=== PATIENT | male | born 1950 | race Two or more races ===

== ENCOUNTER 2020-04-11 12:39 | Outpatient (REF) | payer MEDICARE, MEDICAID, SELFPAY ==
--- NOTE | 2020-04-11 | US_ITS ---
EXAMINATION: US ABDOMINAL AORTIC CLINICAL INFORMATION: Screening study. History of smoking. COMPARISON: None TECHNIQUE: Real-time ultrasound and Doppler techniques (integrating B-mode 2-D vascular images, Doppler spectral analysis and color flow Doppler imaging) were utilized to interrogate the abdominal aorta. FINDINGS: Proximal aorta: 2.7 cm AP; 3.2 cm transverse, however the transverse dimension may be inaccurate due to overlying bowel gas.. Middle aorta: 1.8 cm AP; 2.1 cm transverse. Distal aorta: 1.6 cm AP; 1.6 cm transverse. Right common iliac artery: 1.2 x 1.1 cm Left common iliac artery: 1.1 x 1.0 cm ADDITIONAL FINDINGS: None. US/US abdominal aortic aneurysm IMPRESSION: The proximal aorta measures slightly greater than normal at 3.2 cm in the transverse dimension, suggesting aneurysm. However, this area of the aorta was obscured by bowel gas and the measurement may not be accurate. Repeat ultrasound can be performed versus CT for definitive answer.
== END 2020-04-11 12:40 | disposition home or self-care (01) ==
LOC: HO.US 12:39
PROVIDERS: Visit Provider Internal Medicine
DX: Z87.891 Personal history of nicotine dependence (principal)
CPT/HCPCS: 76706

== ENCOUNTER 2023-02-05 12:37 | Outpatient (REF) | payer MEDICARE, MEDICAID, SELFPAY | END 2023-02-05 12:38 | disposition home or self-care (01) | LOC: HO.CHCLDS 12:37 | PROVIDERS: Visit Provider Internal Medicine | DX: Z12.5 Encounter for screening for malignant neoplasm of prostate (principal); R35.1 Nocturia; E11.22 Type 2 diabetes mellitus with diabetic chronic kidney disease; N18.31 Chronic kidney disease, stage 3a | CPT/HCPCS: 36415; 80053; 80061; 84153; 84439; 84443; 86803 ==

== ENCOUNTER 2024-01-27 16:09 | Outpatient (REF) | payer MEDICARE, MEDICAID, SELFPAY ==
[2024-01-27 17:53] LABS: Uric Acid 7.8 mg/dL (3.4-7.0)
[2024-01-27 18:02] LABS: Alanine Aminotransferase 14 U/L (0-40); Albumin Level 4.8 g/dL (3.5-5.0); Alkaline Phosphatase 103 U/L (39-117); Anion Gap 15 (12-20); Aspartate Amino Transferase 20 U/L (5-37); Bilirubin Total 0.4 mg/dL (0.0-1.0); Blood Urea Nitrogen 14 mg/dL (9-16); Calcium 10.3 mg/dL (8.4-10.2); Carbon Dioxide 27 mmol/L (22-29); Chloride 103 mmol/L (96-108); Cholesterol 200 mg/dL (<200); Estimated Glomerular Filt Rate 37; Glucose Random 95 mg/dL (60-115); HDL Cholesterol 38 mg/dL (>40); LDL Cholesterol Calculated 100 mg/dL (<100); Sodium 141 mmol/L (135-145); Total Protein 9.1 g/dL (6.5-8.0); Triglycerides 313 mg/dL (<150)
[2024-01-27 18:17] LABS: TSH reflex Free T4 2.14 uIU/mL (0.32-4.0)
== END 2024-01-27 16:10 | disposition home or self-care (01) ==
LOC: HO.HHCL 16:09
PROVIDERS: Student in an Organized Health Care Education/Training Program; Visit Provider Internal Medicine
DX: E11.22 Type 2 diabetes mellitus with diabetic chronic kidney disease (principal); N18.31 Chronic kidney disease, stage 3a; M10.9 Gout, unspecified; E03.9 Hypothyroidism, unspecified
CPT/HCPCS: 36415; 80053; 80061; 84443; 84550

== ENCOUNTER 2024-04-08 11:08 | Outpatient (AMB) | payer MEDICARE, MEDICAID, SELFPAY ==
--- NOTE | 2024-04-08 11:21 | HO.NEPHOV ---
Vital Signs 04/08/24 11:23 Height 5 ft 4 in Weight 180 lb 6 oz BMI 31.0 BP 126/70 Blood Pressure Location Lt brachial Position Sitting Pulse 81 Pulse Source Pulse Oximeter Pulse Oximetry (%) 96 Oxygen Delivery Method Room Air Intake Visit Reasons: ENP:CKD STG3B/ LVM Allergies No Known Allergies Allergy (Verified 04/02/24 14:32) HPI Comments Details: Thank you for referring this gentleman for evaluation of CKD. He is a 74 year old Divehi speaking gentleman accompanied by daughter and family during this encounter. He has CAD & is S/P cardiac surgery but denies carotid stenosis, CVA, CHF or PAD. He has dyslipidemia as well as hyperuricemia. His BP is well controlled on medications. He denies being a diabetic or having retinopathy or proteinuria. He denies new bone pain, back pain, H/O paraproteinemia or any malignancy. He has no sensori neural deafness, microscopic hematuria or renal calculi. He does not take excess NSAID's. He has no epistaxis, photosensitivity, skin rashes, sinusitis or edema. His recent serum creatinine is 1.79 PFSH Medical History (Updated 04/08/24 @ 11:48 by Bipin Lockwood MD) Screening for colon cancer Prostate cancer screening Chronic idiopathic constipation History of tremor Vitamin D deficiency Diabetes mellitus CISCO on CPAP Old myocardial infarction Hypothyroidism Hyperlipidemia with target LDL less than 70 Essential hypertension Depression CKD (chronic kidney disease) CAD (coronary artery disease) Renal cyst Surgical History (Updated 04/08/24 @ 11:23 by Bella Curry MA) H/O heart surgery Presence of stent in coronary artery Family History Mother Hypertension Diabetes Heart disease Social History (Updated 04/08/24 @ 11:22 by Bella Curry MA) Alcohol intake: never Patient Tobacco Use Status: Former Tobacco user Review of Systems Const All systems reviewed & are unremarkable except as noted in HPI and below Physical Exam Vital Signs: Last Vital Signs Pulse 81 04/08/24 11:23 BP 126/70 04/08/24 11:23 Pulse Ox 96 04/08/24 11:23 Oxygen Delivery Method Room Air 04/08/24 11:23 BMI result Body Mass Index 31.0 Const General: comfortable and no acute distress Orientation/consciousness: patient oriented x3 HEENT Head: Yes normocephalic Mouth: Normal oral and palatal mucosa present Eyes EOM: EOMs intact bilaterally Neck Neck: Yes supple Resp Auscultation: clear to auscultation bilaterally Cardio Jugular venous distension: no JVD Rate: regular rate GI Palpation (GI): Soft to palpation Auscultation: normal bowel sounds General: Yes no CVA tenderness Back/Spine/Pelvis Back: no CVA tenderness Skin General skin exam: no rashes or lesions noted Neuro General: patient oriented x3 and moves all extremities Extrem General: Yes no pedal edema Results Reviewed Nephrology Results: Sodium 141 mmol/L (135-145) 01/27/24 Potassium 4.0 mmol/L (3.3-5.1) 01/27/24 Chloride 103 mmol/L (96-108) 01/27/24 Carbon Dioxide 27 mmol/L (22-29) 01/27/24 BUN 14 mg/dL (9-16) 01/27/24 Creatinine 1.79 mg/dL (0.5-1.4) H 01/27/24 Calcium 10.3 mg/dL (8.4-10.2) H 01/27/24 Assessment & Plan Assessment & Plan (1) CKD stage 3a, GFR 45-59 ml/min: Code(s): N18.31 - Chronic kidney disease, stage 3a Category: Medical (2) Hypertension: Code(s): I10 - Essential (primary) hypertension Category: Medical Qualifiers: Hypertension type: primary hypertension Qualified Code(s): I10 - Essential (primary) hypertension Plan Tommy most likely has CKD due to vascular disease. He has CAD & has H/O CABG. His urine output is good. He does not take NSAID's. His blood pressure is at goal. He is not on ACEI/ARB. He is unsure about his last ECHO results. I have ordered work up including imaging studies. He may need a renal biopsy based on data. All these were discussed in detail. Answered all questions. Orders: Orders Creatinine 3 Weeks I10 - Essential (primary) hypertension, N18.31 - Chronic kidney disease, stage 3a Electrolytes 3 Weeks I10 - Essential (primary) hypertension, N18.31 - Chronic kidney disease, stage 3a Calcium 3 Weeks I10 - Essential (primary) hypertension, N18.31 - Chronic kidney disease, stage 3a Phosphorus 3 Weeks I10 - Essential (primary) hypertension, N18.31 - Chronic kidney disease, stage 3a Vitamin D 25-OH Total 3 Weeks I10 - Essential (primary) hypertension, N18.31 - Chronic kidney disease, stage 3a Anti DNA DS Antibody 3 Weeks I10 - Essential (primary) hypertension, N18.31 - Chronic kidney disease, stage 3a Anti Glomerular Basement Memb 3 Weeks I10 - Essential (primary) hypertension, N18.31 - Chronic kidney disease, stage 3a Immunofixation Pnl, Serum 3 Weeks I10 - Essential (primary) hypertension, N18.31 - Chronic kidney disease, stage 3a Phospholipase A2 Receptor Pnl 3 Weeks I10 - Essential (primary) hypertension, N18.31 - Chronic kidney disease, stage 3a Protein Creatinine Ratio, Ur 3 Weeks I10 - Essential (primary) hypertension, N18.31 - Chronic kidney disease, stage 3a Blood Urea Nitrogen 3 Weeks I10 - Essential (primary) hypertension, N18.31 - Chronic kidney disease, stage 3a Parathyroid Hormone Intact 3 Weeks I10 - Essential (primary) hypertension, N18.31 - Chronic kidney disease, stage 3a Complete Blood Count Auto Diff 3 Weeks I10 - Essential (primary) hypertension, N18.31 - Chronic kidney disease, stage 3a Myeloperoxidase Antibody 3 Weeks I10 - Essential (primary) hypertension, N18.31 - Chronic kidney disease, stage 3a Proteinase 3 PR3 Antibodies 3 Weeks I10 - Essential (primary) hypertension, N18.31 - Chronic kidney disease, stage 3a Complement C3 3 Weeks I10 - Essential (primary) hypertension, N18.31 - Chronic kidney disease, stage 3a Complement C4 3 Weeks I10 - Essential (primary) hypertension, N18.31 - Chronic kidney disease, stage 3a Hepatitis B Core Antibody 3 Weeks I10 - Essential (primary) hypertension, N18.31 - Chronic kidney disease, stage 3a Hepatitis B Surface Antigen 3 Weeks I10 - Essential (primary) hypertension, N18.31 - Chronic kidney disease, stage 3a US renal BI 3 Weeks I10 - Essential (primary) hypertension, N18.31 - Chronic kidney disease, stage 3a Coding Level of Care Code New Pt Level 4 (02226) Diagnoses CKD stage 3a, GFR 45-59 ml/min N18.31 Primary hypertension I10 Hypertension type: primary hypertension
[2024-04-08 11:23] VITALS: BP 126/70; PULSE 81; O2SAT 96; BMI 31.0
--- OUTSIDE RECORDS SUMMARY | 2024-04-09 01:31 | XMS_ITS | Clinical Summary ---
Author Organization Unknown Care Team Providers Care Quarter Doper Name Role Phone LEXII WILLSON, ALTON Unavailable Unavailaleshia MONTEZ ([facility]) [facility] - PT, ONEL Unavailable Unavailable NICHOLAS MONTIEL, CLINICAL COTTON CONVERTER, ALFRED Un available Unavailable MARY ([facility]) [facility] - BAND BUILDER, ANDRY Unavailable Un available RAFAEL MONTIEL, NICK Unavailable Unavailable Payers Payer Name Policy Type Policy Number Effective Date Expira tion Date MEDICARE - NGS [place] - PDGM [id number] [place] USED PAYER [id number] Problems Condition Name Condition Details Condition Category Status Onset Date Resolution Date Last Treatment Date Treating Clinician Comments ESSENTIAL (PRIMARY) HYPERTENSION Active 11-03 00:00: 00 PARKINSON'S DIS W/O DYSKINESIA, W/O MENTION OF FLUCTUATIONS Active 11-03 00:00: 00 ATHSCL HEART DISEASE OF [place] CORONARY ARTERY W/O ANG PCTRS Active 11-03 00:00: 00 ANEMIA, UNSPECIFIED Active 11-03 00:00: 00 OLD MYOCARDIAL INFARCTION Active 11-03 00:00: 00 FOOT DROP, LEFT FOOT Active 11-03 00:00: 00 HYPERLIPIDEM IA, UNSPECIFIED Active 11-03 00:00: 00 DEPRESSION, UNSPECIFIED Active 11-03 00:00: 00 PERSONAL HISTORY OF NICOTINE DEPENDENCE Active 11-03 00:00: 00 Problems related to health literacy Active 11-03 00:00: 00 PRSNL HX OF TIA (TIA), AND CEREB INFRC W/O RESID DEFICITS Active 11-03 00:00: 00 ASSISTED (CURRENT) USE OF ASPIRIN Active 11-03 00:00: 00 Allergies, Adverse Reactions, Alerts Allergy Name Allergy Type Status Severity Reaction(s) Onset Date Inactive Date Treating Clinician Comments NKA Propensity to adverse reactions Active 2023-10 10:39:4 2 Medications Ordered Medication Name Filled Medication Name Start Date Stop Date Current Medication? Ordering Clinician Indication Dosage Frequency Signature (SIG) Comments Components carbidopa 25 mg-levodopa 100 mg tablet 10-22 00:00: 00 Yes [id number] .5 tablet 3 TIMES DAILY .5 tablet 3 TIMES DAILY (route: oral) Med Classific ation: Central Nervous System Agents ezetimibe 10 mg tablet 10-22 00:00: 00 Yes [id number] 1 tablet DAILY 1 tablet DAILY (route: oral) Med Classific ation: Cardiovas cular Therapy Agents rosuvastati n 40 mg tablet 10-22 00:00: 00 Yes [id number] 1 tablet BEDTIME 1 tablet BEDTIME (route: oral) Med Classific ation: Cardiovas cular Therapy Agents amlodipine 5 mg tablet 11-03 00:00: 00 Yes [id number] 2 tablet DAILY 2 tablet DAILY (route: oral) Med Classific ation: Cardiovas cular Therapy Agents aspirin 81 mg tablet,argelia yed release 11-03 00:00: 00 Yes [id number] 1 tablet DAILY 1 tablet DAILY (route: oral) Med Classific ation: Hematolog ical Agents cholecalcif carey (vitamin D3) 25 mcg (1,000 unit) tablet 11-03 00:00: 00 Yes [id number] 1 tablet DAILY 1 tablet DAILY (route: oral) Med Classific ation: Electroly te Balance-N utritiona l Products clopidogrel 75 mg tablet 11-03 00:00: 00 11-12 23:59 :00 No [id number] 1 tablet DAILY 1 tablet DAILY (route: oral) Med Classific ation: Hematolog ical Agents Colace 100 mg capsule 11-03 00:00: 00 Yes [id number] 1 capsule DAILY 1 capsule DAILY (route: oral) Med Classific ation: Gastroint estinal Therapy Agents cyanocobala min (vit B-12) 1,000 mcg tablet 11-03 00:00: 00 02-12 23:59 :00 No [id number] 1 tablet DAILY 1 tablet DAILY (route: oral) Med Classific ation: Electroly te Balance-N utritiona l Products furosemide 20 mg tablet 11-03 00:00: 00 Yes [id number] 1 tablet DAILY 1 tablet DAILY (route: oral) Med Classific ation: Cardiovas cular Therapy Agents levothyroxi ne 88 mcg tablet 11-03 00:00: 00 Yes [id number] 1 tablet DAILY 1 tablet DAILY (route: oral) Med Classific ation: Endocrine metoprolol succinate ER 25 mg tablet,exte nded release 24 hr 11-03 00:00: 00 Yes [id number] 1 tablet DAILY 1 tablet DAILY (route: oral) Med Classific ation: Cardiovas cular Therapy Agents nitroglycer in 0.4 mg sublingual tablet 11-03 00:00: 00 Yes [id number] Per instruc tions DIRECTED Per instructio ns DIRECTED (route: sublingual ) Med Classific ation: Cardiovas cular Therapy Agents citalopram 40 mg tablet 2023-04 00:00: 00 Yes [id number] 1 tablet DAILY 1 tablet DAILY (route: oral) Med Classific ation: Central Nervous System Agents clopidogrel 75 mg tablet 2023-04 00:00: 00 Yes [id number] 1 tablet DAILY 1 tablet DAILY (route: oral) Med Classific ation: Hematolog ical Agents colchicine 0.6 mg tablet 2023-04 00:00: 00 Yes [id number] 1 tablet DAILY 1 tablet DAILY (route: oral) Med Classific ation: Gout and Hyperuric emia Therapy Vital Signs Vital Name Observation Time Observation Value Commen ts Temperature 2024-02-28 12:26:00.000 98.2 [degF] Temperature 2024-02-22 12:35:00.000 97.7 [degF] Temperature 2024-02-13 13:28:00.000 98.6 [degF] Temperature 2024-02-07 11:14:00.000 97.8 [degF] Temperature 2024-01-29 13:01:00.000 97.8 [degF] Temperature 2024-01-20 17:01:00.000 98.5 [degF] Pulse 2024-02-28 12:26:00.000 74 /min Pulse 2024-02-22 12:35:00.000 78 /min Pulse 2024-02-13 13:28:00.000 84 /min Pulse 2024-02-07 11:14:00.000 77 /min Pulse 2024-01-29 13:01:00.000 79 /min Pulse 2024-01-20 17:01:00.000 83 /min O2 Saturation (%) 2024-02-28 12:26:00.000 97 % O2 Saturation (%) 2024-02-22 12:35:00.000 97 % O2 Saturation (%) 2024-02-13 13:28:00.000 95 % O2 Saturation (%) 2024-02-07 11:14:00.000 97 % O2 Saturation (%) 2024-01-29 13:01:00.000 95 % O2 Saturation (%) 2024-01-20 17:01:00.000 96 % Respirations 2024-02-28 12:26:00.000 20 /min Respirations 2024-02-22 12:35:00.000 18 /min Respirations 2024-02-13 13:28:00.000 18 /min Respirations 2024-02-07 11:14:00.000 18 /min Respirations 2024-01-29 13:01:00.000 20 /min Respirations 2024-01-20 17:01:00.000 18 /min Systolic Blood Pressure 2024-02-28 12:26:00.000 124 mm [Hg] Systolic Blood Pressure 2024-02-22 12:35:00.000 146 mm [Hg] Systolic Blood Pressure 2024-02-13 13:28:00.000 150 mm [Hg] Systolic Blood Pressure 2024-02-07 11:14:00.000 138 mm [Hg] Systolic Blood Pressure 2024-01-29 13:01:00.000 132 mm [Hg] Systolic Blood Pressure 2024-01-20 17:01:00.000 138 mm [Hg] Diastolic Blood Pressure 2024-02-28 12:26:00.000 70 mm [Hg] Diastolic Blood Pressure 2024-02-22 12:35:00.000 82 mm [Hg] Diastolic Blood Pressure 2024-02-13 13:28:00.000 72 mm [Hg] Diastolic Blood Pressure 2024-02-07 11:14:00.000 68 mm [Hg] Diastolic Blood Pressure 2024-01-29 13:01:00.000 70 mm [Hg] Diastolic Blood Pressure 2024-01-20 17:01:00.000 76 mm [Hg] Plan of Treatment Planned Activity Planned Date Details Comments Future Scheduled Test SKILLED NU RSE TO EVALUATE PATIENT, IDENTIFY PRIMARY AND CO-MORBID CONDITIONS CODED PER CODING GUIDELINES, AND DEVELOP PATIENT SPECIFIC PLAN OF CARE THAT INCLUDES PATIENT GOAL FOR HOME HEALTH. [code = SKILLED NURSE TO EVALUATE PATIENT, IDENTIFY PRIMARY AND CO-MORBID CONDITIONS CODED PER CODING GUIDELINES, AND DEVELOP PATIENT SPECIFIC PLAN OF CARE THAT INCLUDES PATIENT GOAL FOR HOME HEALTH.] Future Scheduled Test SKILLED NU RSE TO REVIEW PATIENT MEDICATIONS. INSTRUCT PATIENT/CAREGIVER ON MONITORING OF EFFECTIVENESS, ADVERSE DRUG REACTIONS, SIDE EFFECTS OF ALL MEDICATIONS (PRESCRIPTION/-OTC), AND HOW AND WHEN TO REPORT PROBLEMS. [code = SKILLED NURSE TO REVIEW PATIENT MEDICATIONS. INSTRUCT PATIENT/CAREGIVER ON MONITORING OF EFFECTIVENESS, ADVERSE DRUG REACTIONS, SIDE EFFECTS OF ALL MEDICATIONS (PRESCRIPTION/-OTC), AND HOW AND WHEN TO REPORT PROBLEMS.] Future Scheduled Test SKILLED NU RSE FOR O/A, TEACHING, AND MANAGEMENT OF CAD WITH AK, HLD [code = SKILLED NURSE FOR O/A, TEACHING, AND MANAGEMENT OF CAD WITH AK, HLD] Future Scheduled Test SKILLED NU RSE TO INSTRUCT PATIENT/CAREGIVER ON SIGNS AND SYMPTOMS AND METHODS TO MANAGE PARKINSON'S DISEASE PROGRESSION. [code = SKILLED NURSE TO INSTRUCT PATIENT/CAREGIVER ON SIGNS AND SYMPTOMS AND METHODS TO MANAGE PARKINSON'S DISEASE PROGRESSION.] Future Scheduled Test SKILLED NU RSE TO PROVIDE TEACHING ON SIGNS AND SYMPTOMS AND MANAGEMENT OF HYPERTENSION. [code = SKILLED NURSE TO PROVIDE TEACHING ON SIGNS AND SYMPTOMS AND MANAGEMENT OF HYPERTENSION.] Future Scheduled Test SKILLED NU RSE TO INSTRUCT PATIENT/CAREGIVER ON WARNING SIGNS OF CVA, RISK FACTORS, AND METHODS TO MANAGE ROLLER MAN EFFECTS OF CVA. [code = SKILLED NURSE TO INSTRUCT PATIENT/CAREGIVER ON WARNING SIGNS OF CVA, RISK FACTORS, AND METHODS TO MANAGE ROLLER MAN EFFECTS OF CVA.] Future Scheduled Test SKILLED NU RSE FOR O/A AND SKILLED TEACHING RELATED TO SIGNS AND SYMPTOMS AND MANAGEMENT OF ANEMIA. [code = SKILLED NURSE FOR O/A AND SKILLED TEACHING RELATED TO SIGNS AND SYMPTOMS AND MANAGEMENT OF ANEMIA.] Future Scheduled Test PATIENT PEDRAZA S A RISK OF HOSPITALIZATION AND ED USE. SKILLED NURSE TO ESTABLISH SUPPORT MEASURES TO MINIMIZE RISK OF HOSPITALIZATION AND ED USE, AND INSTRUCT PATIENT/CAREGIVER ON METHODS TO REDUCE AVOIDABLE HOSPITALIZATION AND ED USE. [code = PATIENT HAS A RISK OF HOSPITALIZATION AND ED USE. SKILLED NURSE TO ESTABLISH SUPPORT MEASURES TO MINIMIZE RISK OF HOSPITALIZATION AND ED USE, AND INSTRUCT PATIENT/CAREGIVER ON METHODS TO REDUCE AVOIDABLE HOSPITALIZATION AND ED USE.] Future Scheduled Test SKILLED NU RSE TO PROVIDE INSTRUCTION TO PATIENT/CAREGIVER RELATED TO DISCHARGE PLANNING. [code = SKILLED NURSE TO PROVIDE INSTRUCTION TO PATIENT/CAREGIVER RELATED TO DISCHARGE PLANNING.] Future Scheduled Test SKILLED NU RSE TO PERFORM HOME SAFETY AND FALL ASSESSMENT AND PROVIDE INSTRUCTION TO IMPLEMENT HOME SAFETY AND FALL PREVENTION STRATEGIES. [code = SKILLED NURSE TO PERFORM HOME SAFETY AND FALL ASSESSMENT AND PROVIDE INSTRUCTION TO IMPLEMENT HOME SAFETY AND FALL PREVENTION STRATEGIES.] Future Scheduled Test SKILLED NU RSE FOR OBSERVATION AND ASSESSMENT OF PATIENTS PAIN LEVEL AND EFFECTIVENESS OF PAIN MANAGEMENT REGIMEN. SKILLED NURSE TO INSTRUCT PATIENT/CAREGIVER REGARDING PHARMACOLOGIC AND NON-PHARMACOLOGIC PAIN CONTROL MEASURES. SKILLED NURSE TO REPORT TO PHYSICIAN IF PAIN IS UNCONTROLLED WITH CURRENT PAIN MANAGEMENT REGIMEN. [code = SKILLED NURSE FOR OBSERVATION AND ASSESSMENT OF PATIENTS PAIN LEVEL AND EFFECTIVENESS OF PAIN MANAGEMENT REGIMEN. SKILLED NURSE TO INSTRUCT PATIENT/CAREGIVER REGARDING PHARMACOLOGIC AND NON-PHARMACOLOGIC PAIN CONTROL MEASURES. SKILLED NURSE TO REPORT TO PHYSICIAN IF PAIN IS UNCONTROLLED WITH CURRENT PAIN MANAGEMENT REGIMEN.] Future Scheduled Test SKILLED NU RSE TO ASSESS PATIENT'S SKIN INTEGRITY AND INSTRUCT PATIENT/CAREGIVER ON MEASURES TO PREVENT PRESSURE ULCERS. [code = SKILLED NURSE TO ASSESS PATIENT'S SKIN INTEGRITY AND INSTRUCT PATIENT/CAREGIVER ON MEASURES TO PREVENT PRESSURE ULCERS.] Future Scheduled Test SKILLED NU RSE TO PROVIDE ASSESSMENT AND TEACHING/REINFORCEMENT OF MANAGEMENT OF DEPRESSION INCLUDING DISEASE PROCESS, MEDICATION MANAGEMENT, COPING SKILLS AND IDENTIFY CHANGES ASSOCIATED WITH DEPRESSIVE DISORDERS FOR EARLY INTERVENTION. [code = SKILLED NURSE TO PROVIDE ASSESSMENT AND TEACHING/REINFORCEMENT OF MANAGEMENT OF DEPRESSION INCLUDING DISEASE PROCESS, MEDICATION MANAGEMENT, COPING SKILLS AND IDENTIFY CHANGES ASSOCIATED WITH DEPRESSIVE DISORDERS FOR EARLY INTERVENTION. ] Goal 2024-01-02 Patient Goal - STAY HOME Goal Patient Goal - S OC - STAY HOME 01/02/24 RECERT TO KNOW HOW TO BE MORE HEALTHY Goal Provider Goal - A PLAN OF CARE WILL BE ESTABLISHED THAT MEETS PATIENT'S SNF NEEDS AND INCLUDES PATIENT GOAL FOR HOME HEALTH. Goal Provider Goal - PATIENT/CAREGIVER WILL VERBALIZE UNDERSTANDING OF EDUCATION PROVIDED ON MEDICATIONS BY THE END OF THE CERTIFICATION PERIOD. Goal Provider Goal - PATIENT/CAREGIVER WILL VERBALIZE/DEMONSTRATE MANAGEMENT OF CARDIAC DISEASE PROCESS AND EXACERBATIONS WILL BE IDENTIFIED AND PROMPTLY REPORTED THROUGHOUT THE CERTIFICATION PERIOD. Goal Provider Goal - PATIENT/CAREGIVER WILL VERBALIZE SIGNS AND SYMPTOMS OF PARKINSON'S DISEASE AND DEMONSTRATE METHODS TO MANAGE DISEASE PROCESS BY END OF CERTIFICATION PERIOD. Goal Provider Goal - PATIENT/CAREGIVER WILL VERBALIZE SIGNS AND SYMPTOMS OF HYPERTENSION AND WILL BE ABLE TO DEMONSTRATE ABILITY TO MANAGE EXACERBATION BY END OF THE EPISODE. Goal Provider Goal - PATIENT/CAREGIVER WILL DEMONSTRATE COMPLIANCE WITH TREATMENT REGIME AND VERBALIZE SIGNS AND SYMPTOMS TO REPORT WELL POSSIBLE COMPLICATIONS OF CVA BY END OF EPISODE. Goal Provider Goal - PATIENT/CARGIVER WILL VERBALIZE UNDERSTANDING OF ANEMIA INCLUDING SIGNS AND SYMPTOMS, MANAGEMENT OF COMPLICATIONS, AND PRESCRIBED TREATMENT REGIMEN BY END OF EPISODE. Goal Provider Goal - PATIENT WILL HAVE SUPPORT MEASURES ESTABLISHED TO PREVENT HOSPITALIZATION AND ED USE AND PATIENT/CAREGIVER WILL VERBALIZE/DEMONSTRATE METHODS TO REDUCE AVOIDABLE HOSPITALIZATION AND ED USE BY END OF EPISODE. Goal Provider Goal - PATIENT/CAREGIVER WILL VERBALIZE UNDERSTANDING OF DISCHARGE PLANNING INSTRUCTIONS BY DATE OF DISCHARGE. Goal Provider Goal - PATIENT/CAREGIVER WILL VERBALIZE/DEMONSTRATE EFFECTIVE HOME SAFETY AND FALL PREVENTION STRATEGIES THROUGHOUT CERTIFICATION PERIOD. Goal Provider Goal - PATIENT/CAREGIVER WILL DEMONSTRATE UNDERSTANDING OF PHARMACOLOGIC AND NONPHARMACOLOGIC PAIN CONTROL MEASURES AND PATIENT WILL HAVE IMPROVEMENT IN PAIN INTERFERING WITH ACTIVITY EVIDENCED BY PAIN CONTROLLED AT LEVEL OF 7 OR LESS BY END OF CERTIFICATION PERIOD. Goal Provider Goal - PATIENT/CAREGIVER WILL VERBALIZE UNDERSTANDING OF PRESSURE ULCER PREVENTION BY END OF THE EPISODE. Goal Provider Goal - PATIENT/CAREGIVER WILL VERBALIZE/DEMONSTRATE UNDERSTANDING OF THE MANAGEMENT OF DEPRESSION THROUGHOUT THE CERTIFICATION PERIOD AND SYMPTOMS ARE IDENTIFIED AND MANAGED TO MAINTAIN PATIENT SAFETY IN THE HOME. Reason for Visit INDEPENDENT IN THE HOME Encounters Start Date/Time End Date/Time Encounter Type Admission Type Attending [facility] Care Department Encounter ID Discharge Date Discharge Status Discharge Condition Discharge Reason Percent Goals Met 2023-11-04 00:00:00 2024-02-28 00:00:00 Outpatient RECERTIFIC ATION [facility] [id number] 2024-02-28 00:00:00 DISCHARGE TO HOME OR SELF CARE INDEPENDEN T IN THE HOME GOALS MET ( ONLY) 57.14
== END 2024-04-08 11:59 | disposition home or self-care (01) ==
LOC: HO.HKA 11:08
PROVIDERS: PCP Internal Medicine; Referring Provider Internal Medicine; Visit Provider Internal Medicine Nephrology
DX: I12.9 Hypertensive chronic kidney disease with stage 1 through stage 4 chronic kidney disease, or unspecified chronic kidney disease (principal); N18.31 Chronic kidney disease, stage 3a
CPT/HCPCS: 99204

== ENCOUNTER → 2024-04-08 11:08 | Outpatient (BNVA) | payer MEDICARE, MEDICAID, SELFPAY | PROVIDERS: PCP Internal Medicine; Referring Provider Internal Medicine; Visit Provider Internal Medicine Nephrology | DX: I12.9 Hypertensive chronic kidney disease with stage 1 through stage 4 chronic kidney disease, or unspecified chronic kidney disease (principal); N18.31 Chronic kidney disease, stage 3a | CPT/HCPCS: 99202 ==

== ENCOUNTER 2024-04-30 13:55 | Outpatient (REF) | payer OTHER, SELFPAY ==
--- NOTE | ~2024-04-30 | US_ITS ---
EXAMINATION: US RETROPERITONEAL LIMITED (RENAL ONLY) CLINICAL INFORMATION: Chronic kidney disease stage III a. COMPARISON: None available. TECHNIQUE: Routine grayscale imaging of the kidneys was performed. FINDINGS: RIGHT KIDNEY: 12.3 x 5.8 x 7.2 cm (SAG x AP x TRV). The kidney is normal in size, lobulated contour, and echogenicity. Renal cortical thickness is normal. There are no echogenic calculi or hydronephrosis. There are multiple bilateral complex cyst. The largest documented complex mid pole cyst with septation measures 4.4 x 4.2 x 3.9, mid pole anterior cyst, masslike measures 1.8 x 1.9 x 1.6 cm and increased peripheral vascularity. Lower pole cyst measures 2.4 x 2.2 x 2.6 appears complex versus mass. Lower pole cyst measures 2.3 x 2.1 x 2.0 cm cyst with peripheral calcification likely complex cyst, less likely mass. LEFT KIDNEY: 13.3 x 5.1 x 6.0 cm (SAG x AP x TRV). The kidney is normal in size, lobulated contour, and echogenicity. Renal cortical thickness is normal. No echogenic calculi seen. No hydronephrosis. There are multiple anechoic cysts. The largest measured complex cyst lower pole is 3.5 x 2.1 x 3.3 cm, midpole with calcification 2.6 x 1.6 x 1.9 cm and mid pole complex cyst measuring 1.7 x 1.2 x 1.7 cm. US/US renal BI IMPRESSION: Bilateral temporal and renal complex cyst. Some of the complex cysts appear masslike. Recommend CT kidneys without and with contrast. There are no echogenic stones or hydronephrosis. Electronically signed by: Edin Pryor MD 04/30/2024 03:15 PM EST
== END 2024-04-30 13:56 | disposition home or self-care (01) ==
LOC: HO.HMGCX 13:55
PROVIDERS: PCP Internal Medicine; Visit Provider Internal Medicine Nephrology
DX: I12.9 Hypertensive chronic kidney disease with stage 1 through stage 4 chronic kidney disease, or unspecified chronic kidney disease (principal); N18.31 Chronic kidney disease, stage 3a
CPT/HCPCS: 76775

== ENCOUNTER → 2024-04-30 13:58 | Outpatient (BNV) | payer MEDICARE, MEDICAID, SELFPAY | PROVIDERS: PCP Internal Medicine; Visit Provider Radiology Diagnostic Radiology | DX: N18.31 Chronic kidney disease, stage 3a (principal) | CPT/HCPCS: 76775 ==

== ENCOUNTER 2024-05-07 14:36 | Outpatient (AMB) | payer MEDICARE, MEDICAID, SELFPAY ==
--- NOTE | 2024-05-07 15:32 | HO.NEPHOV ---
Vital Signs 05/07/24 15:35 Height 5 ft 4 in Weight 179 lb 4 oz BMI 30.8 BP 130/60 Blood Pressure Location Lt brachial Position Sitting Pulse 71 Pulse Source Pulse Oximeter Pulse Oximetry (%) 96 Oxygen Delivery Method Room Air Intake Visit Reasons: CKD-LVM [place] Operator Required: Yes [place] Operator Language: Latvian Accompanied by: Self / Same As Patient Allergies No Known Allergies Allergy (Verified 05/07/24 15:33) HPI Comments Details: He was seen in follow up for CKD. He is a 74 year old Latvian speaking gentleman accompanied by daughter and family during this encounter. He has CAD & is S/P cardiac surgery but denies carotid stenosis, CVA, CHF or PAD. He has dyslipidemia as well as hyperuricemia. His BP is well controlled on medications. He denies being a diabetic or having retinopathy or proteinuria. He denies new bone pain, back pain, H/O paraproteinemia or any malignancy. He has no sensori neural deafness, microscopic hematuria or renal calculi. He does not take excess NSAID's. He has no epistaxis, photosensitivity, skin rashes, sinusitis or edema. His last serum creatinine was 1.79 but today's one is pending [facility] Medical History (Updated 04/08/24 @ 11:48 by Bipin Lockwood MD) Screening for colon cancer Prostate cancer screening Chronic idiopathic constipation History of tremor Vitamin D deficiency Diabetes mellitus CISCO on CPAP Old myocardial infarction Hypothyroidism Hyperlipidemia with target LDL less than 70 Essential hypertension Depression CKD (chronic kidney disease) CAD (coronary artery disease) Renal cyst Surgical History H/O heart surgery Presence of stent in coronary artery Family History Mother Hypertension Diabetes Heart disease Social History Alcohol intake: never Patient Tobacco Use Status: Former Tobacco user Review of Systems Const All systems reviewed & are unremarkable except as noted in HPI and below Physical Exam Vital Signs: Last Vital Signs Pulse 71 05/07/24 15:35 BP 130/60 05/07/24 15:35 Pulse Ox 96 05/07/24 15:35 Oxygen Delivery Method Room Air 05/07/24 15:35 BMI result Body Mass Index 30.8 Const General: comfortable and no acute distress Orientation/consciousness: patient oriented x3 HEENT Head: Yes normocephalic Mouth: Normal oral and palatal mucosa present Eyes EOM: EOMs intact bilaterally Neck Neck: Yes supple Resp Auscultation: clear to auscultation bilaterally Cardio Jugular venous distension: no JVD Rate: regular rate GI Palpation (GI): Soft to palpation Auscultation: normal bowel sounds General: Yes no CVA tenderness Back/Spine/Pelvis Back: no CVA tenderness Skin General skin exam: no rashes or lesions noted Neuro General: patient oriented x3 and moves all extremities Extrem General: Yes no pedal edema Assessment & Plan Assessment & Plan (1) CKD stage 3a, GFR 45-59 ml/min: Code(s): N18.31 - Chronic kidney disease, stage 3a Category: Medical (2) Hypertension: Code(s): I10 - Essential (primary) hypertension Category: Medical Qualifiers: Hypertension type: primary hypertension Qualified Code(s): I10 - Essential (primary) hypertension Plan Tommy most likely has CKD due to vascular disease. He has CAD & has H/O CABG. His urine output is good. He does not take NSAID's. His blood pressure is at goal. He is not on ACEI/ARB. He is unsure about his last ECHO results. He has complex cysts by USS . I ordered F/U CT kidneys. He likely will need SGLT2 i. All these were discussed in detail. Answered all questions Orders: Orders Blood Urea Nitrogen 3 Months I10 - Essential (primary) hypertension, N18.31 - Chronic kidney disease, stage 3a Electrolytes 3 Months I10 - Essential (primary) hypertension, N18.31 - Chronic kidney disease, stage 3a Protein Creatinine Ratio, Ur 3 Months I10 - Essential (primary) hypertension, N18.31 - Chronic kidney disease, stage 3a CT abdomen wo IV con Today N28.1 - Cyst of kidney, acquired Creatinine 3 Months I10 - Essential (primary) hypertension, N18.31 - Chronic kidney disease, stage 3a Coding Level of Care Code Est Pt Level 4 (20175) Diagnoses CKD stage 3a, GFR 45-59 ml/min N18.31 Primary hypertension I10 Hypertension type: primary hypertension
[2024-05-07 15:35] VITALS: BP 130/60; PULSE 71; O2SAT 96; BMI 30.8
== END 2024-05-07 16:02 | disposition home or self-care (01) ==
PROVIDERS: PCP Internal Medicine; Visit Provider Internal Medicine Nephrology
DX: N18.31 Chronic kidney disease, stage 3a (principal); I10 Essential (primary) hypertension
CPT/HCPCS: 99214

== ENCOUNTER 2024-05-07 14:36 | Outpatient (REF) | payer MEDICARE, MEDICAID, SELFPAY ==
[2024-05-07 17:48] LABS: MANUAL DIFF FLAG NO
[2024-05-07 18:29] LABS: Basophils Absolute Auto 0.1 X10*3/uL (0.0-0.2); Basophils Percent Auto 0.6 % (0-2); Eosinophils Absolute Auto 0.2 X10*3/uL (0.0-0.4); Hematocrit 42.5 % (42.0-52.0); Hemoglobin 14.1 g/dl (14.0-18.0); Imm Gran Abs Auto 0.02 X10*3/uL (0.00-0.03); Imm Gran Pct Auto 0.3 % (0.0-0.4); Lymphocytes Absolute Auto 2.7 X10*3/uL (1.2-4.9); Lymphocytes Percent Auto 33.7 % (20-40); Mean Corpuscular HGB Conc 33.2 g/dl (31.0-36.0); Mean Corpuscular Hemoglobin 28.8 pg (27.0-33.0); Mean Corpuscular Volume 86.9 fL (80.0-98.0); Mean Platelet Volume 9.2 fL (9.4-12.4); Monocytes Absolute Auto 0.7 X10*3/uL (0.1-1.2); Monocytes Percent Auto 8.3 % (2-11); Neutrophils Absolute Auto 4.4 x10*3/uL (2.0-8.3); Neutrophils Percent Auto 55.1 % (45-73); Platelet Count 381 X10*3/uL (160-400); Red Blood Count 4.89 X10*6/uL (4.60-5.80); Red Cell Distribution Width 11.9 % (11.0-16.0)
[2024-05-07 18:35] LABS: Anion Gap 13 (12-20); Blood Urea Nitrogen 14 mg/dL (9-16); Calcium 9.8 mg/dL (8.4-10.2); Carbon Dioxide 27 mmol/L (22-29); Chloride 108 mmol/L (96-108); Estimated Glomerular Filt Rate 42; Phosphorus 3.8 mg/dL (2.7-4.5); Potassium 3.9 mmol/L (3.3-5.1); Sodium 144 mmol/L (135-145)
[2024-05-07 18:41] LABS: Creatinine Urine 59.67 mg/dL; Protein/Creatinine Ratio, Ur 0.25 (<0.2); Total Protein Urine Random 15 mg/dL (<12)
[2024-05-07 18:47] LABS: Parathyroid Hormone Intact 127.4 pg/mL (8.7-77.1)
[2024-05-07 18:51] LABS: Vitamin D 25-OH Total 36.8 ng/mL (>30)
[2024-05-08 09:22] LABS: HBc Num1 0.15 S/CO (0.00-0.79); HBsAGNum1 0.41 S/CO (0.00-0.99); Hepatitis B Core Antibody Nonreactive (Nonreactive); Hepatitis B Surface Antigen Negative (Negative)
[2024-05-08 19:53] LABS: Anti DNA DS Antibody <1 IU/mL; Anti Glomerular Basement Memb <1.0 AI; Myeloperoxidase Antibody <1.0 AI; Proteinase 3 PR3 Antibodies <1.0 AI
[2024-05-11 17:54] LABS: Complement C3 149 mg/dL (82-185)
[2024-05-13 09:48] LABS: IgA 312 mg/dL (70-320); IgG 1385 mg/dL (600-1540); IgM 118 mg/dL (50-300)
[2024-05-14 00:58] LABS: Phospholipase A2 IgG ELISA <4 RU/mL; Phospholipase A2 IgG IFA NEGATIVE (NEGATIVE)
== END 2024-05-07 14:37 | disposition home or self-care (01) ==
LOC: HO.HKASLDS 14:36
PROVIDERS: PCP Internal Medicine; Visit Provider Internal Medicine Nephrology
DX: I12.9 Hypertensive chronic kidney disease with stage 1 through stage 4 chronic kidney disease, or unspecified chronic kidney disease (principal); N18.31 Chronic kidney disease, stage 3a
CPT/HCPCS: 36415; 80051; 82306; 82310; 82565; 82570; 82784; 83520; 83970; 84100; 84156; 84520; 85025; 86021; 86160; 86225; 86255; 86334; 86704; 87340; 99212

== ENCOUNTER 2024-05-14 15:41 | Outpatient (REF) | payer OTHER, SELFPAY ==
--- OUTSIDE RECORDS SUMMARY | 2024-05-14 20:28 | XMS_ITS | Clinical Summary ---
Author Organization Unknown Care Team Providers Care Cargo Tank Mechanic Name Role Phone LEXII WILLSON, ALTON Unavailable Unavailaleshia MONTEZ ([facility]) [facility] - PT, ONEL Unavailable Unavailable NICHOLAS MONTIEL, CLINICAL CONVEYOR SYSTEM OPERATOR, ALFRED Un available Unavailable MARY ([facility]) [facility] - PIPE CONNECTOR, ANDRY Unavailable Un available RAFAEL MONTIEL, NICK Unavailable Unavailable Payers Payer Name Policy Type Policy Number Effective Date Expira tion Date MEDICARE - [place] - PDGM [id number] [place] USED PAYER [id number] Problems Condition Name Condition Details Condition Category Status Onset Date Resolution Date Last Treatment Date Treating Clinician Comments ESSENTIAL (PRIMARY) HYPERTENSION Active 11-03 00:00: 00 PARKINSON'S DIS W/O DYSKINESIA, W/O MENTION OF FLUCTUATIONS Active 11-03 00:00: 00 ATHSCL HEART DISEASE OF [place] CORONARY ARTERY W/O ANG PCTRS Active 11-03 [...] W/O RESID DEFICITS Active 11-03 00:00: 00 CARE HOME (CURRENT) USE OF ASPIRIN Active 11-03 00:00: [...] 100 mg tablet 10-22 00:00: 00 Yes [id number] .5 tablet 3 TIMES DAILY .5 tablet 3 TIMES DAILY (route: oral) Med Classific ation: Central Nervous System Agents ezetimibe 10 mg tablet 10-22 00:00: 00 Yes [id number] 1 tablet DAILY 1 tablet DAILY (route: oral) Med Classific ation: Cardiovas cular Therapy Agents rosuvastati n 40 mg tablet 10-22 00:00: 00 Yes [id number] 1 tablet BEDTIME 1 tablet BEDTIME (route: oral) Med Classific ation: Cardiovas cular Therapy Agents amlodipine 5 mg tablet 11-03 00:00: 00 Yes [id number] 2 tablet DAILY 2 tablet DAILY (route: oral) Med Classific ation: Cardiovas cular Therapy Agents aspirin 81 mg tablet,argelia yed release 11-03 00:00: 00 Yes [id number] 1 tablet DAILY 1 tablet DAILY (route: oral) Med Classific ation: Hematolog ical Agents cholecalcif carey (vitamin D3) 25 mcg (1,000 unit) tablet 11-03 00:00: 00 Yes [id number] 1 tablet DAILY 1 tablet DAILY (route: oral) Med Classific ation: Electroly te Balance-N utritiona l Products clopidogrel 75 mg tablet 11-03 00:00: 00 11-12 23:59 :00 No [id number] 1 tablet DAILY 1 tablet DAILY (route: oral) Med Classific ation: Hematolog ical Agents Colace 100 mg capsule 11-03 00:00: 00 Yes [id number] 1 capsule DAILY 1 capsule DAILY (route: oral) Med Classific ation: Gastroint estinal Therapy Agents cyanocobala min (vit B-12) 1,000 mcg tablet 11-03 00:00: 00 02-12 23:59 :00 No [id number] 1 tablet DAILY 1 tablet DAILY (route: oral) Med Classific ation: Electroly te Balance-N utritiona l Products furosemide 20 mg tablet 11-03 00:00: 00 Yes [id number] 1 tablet DAILY 1 tablet DAILY (route: oral) Med Classific ation: Cardiovas cular Therapy Agents levothyroxi ne 88 mcg tablet 11-03 00:00: 00 Yes [id number] 1 tablet DAILY 1 tablet DAILY (route: oral) Med Classific ation: Endocrine metoprolol succinate ER 25 mg tablet,exte nded release 24 hr 11-03 00:00: 00 Yes [id number] 1 tablet DAILY 1 tablet DAILY (route: oral) Med Classific ation: Cardiovas cular Therapy Agents nitroglycer in 0.4 mg sublingual tablet 11-03 00:00: 00 Yes [id number] Per instruc tions DIRECTED Per instructio ns DIRECTED (route: sublingual ) Med Classific ation: Cardiovas cular Therapy Agents citalopram 40 mg tablet 2023-04 00:00: 00 Yes [id number] 1 tablet DAILY 1 tablet DAILY (route: oral) Med Classific ation: Central Nervous System Agents clopidogrel 75 mg tablet 2023-04 00:00: 00 Yes [id number] 1 tablet DAILY 1 tablet DAILY (route: oral) Med Classific ation: Hematolog ical Agents colchicine 0.6 mg tablet 2023-04 00:00: 00 Yes [id number] 1 tablet DAILY 1 tablet DAILY (route: [...] O/A, TEACHING, AND MANAGEMENT OF CAD WITH NC, HLD [code = SKILLED NURSE FOR O/A, TEACHING, AND MANAGEMENT OF CAD WITH NC, HLD] Future Scheduled Test SKILLED NU RSE [...] CVA, RISK FACTORS, AND METHODS TO MANAGE TELECOM MANAGER EFFECTS OF CVA. [code = SKILLED NURSE TO INSTRUCT PATIENT/CAREGIVER ON WARNING SIGNS OF CVA, RISK FACTORS, AND METHODS TO MANAGE CARE HOME EFFECTS OF CVA.] Future Scheduled Test SKILLED [...] CARE WILL BE ESTABLISHED THAT MEETS PATIENT'S JAIL NEEDS AND INCLUDES PATIENT GOAL FOR HOME [...] End Date/Time Encounter Type Admission Type Attending [facility] Care Department Encounter ID Discharge Date Discharge Status Discharge Condition Discharge Reason Percent Goals Met 2023-11-04 00:00:00 2024-02-28 00:00:00 Outpatient RECERTIFIC ATION N[facility] HALL [facility] [id number] 2024-02-28 00:00:00 DISCHARGE TO HOME OR SELF CARE INDEPENDEN T IN THE HOME GOALS MET ( ONLY) 57.14
== END 2024-05-14 15:42 | disposition home or self-care (01) ==
LOC: HO.CT 15:41
PROVIDERS: PCP Internal Medicine; Visit Provider Internal Medicine Nephrology
DX: N28.1 Cyst of kidney, acquired (principal)
CPT/HCPCS: 74150

== ENCOUNTER → 2024-05-14 15:44 | Outpatient (BNV) | payer OTHER, SELFPAY | PROVIDERS: PCP Internal Medicine; Visit Provider Radiology Diagnostic Radiology | DX: N28.1 Cyst of kidney, acquired (principal) | CPT/HCPCS: 74150 ==

== ENCOUNTER 2024-08-05 10:07 | Outpatient (REF) | payer OTHER, SELFPAY ==
--- OUTSIDE RECORDS SUMMARY | 2024-08-05 11:21 | XMS_ITS | Encounter Summary ---
Author Organization [employer] Address [address] [facility] [address] [place] [address] Care Team Providers Care Well Point Pumping Supervisor Name Role Phone Rojas Cox MD Primary Care Prov ider Lexy Kendall MD Primary Care Provider [phone] Reason for Visit * Reason Comments Med Refill Encounter Details Date Type Department Care Team ([facility] st Contact Info) Description 10/13/2023 Refill [facility] [address] [place], [place] [id number] Irasema Meek MD [address] [place] [address] Social History Tobacco Use Types Packs/Day Years Used Date Smoking Tobacco: Never Passive Smoke Exposure: Never Smokeless Tobacco: Never Depression Answer Date Recorded Patient Health Questionnaire-9 Score 18 09/13/2022 Housing Stability Answer Date Recorded What is your housing situation today? I have lolis cazares 02/11/[address] you li ve. Do you have problems with any of the following? None of the above 02/11/2023 Food Insecurity Answer Date Recorded Within the past 12 months, y ou worried that your food would run out before you got money to buy more: Never True 02/11/2023 Within the past 12 months,th e food you bought just didn't last and you didn't have enough money to get more: Never True Transportation Answer Date Recorded In the past 12 months, has l ack of transportation kept you from medical appts, meetings, work or from getting things needed for daily living? No 02/11/2023 Utilities Answer Date Recorded In the past 12 months, has t he electric, gas, oil or water company threatened to shut off services in your home? No 02/11/2023 Depression Answer Date Recorded Patient Health Questionnaire-2 Score 6 09/13/2022 Sex and Gender Information Value Date Recorded Sex Assigned at Male 02/26/2022 10:36 AM EDT Legal Sex Male 10:36 AM EDT Gender Identity Male 02/26/2022 10:36 AM EDT Sexual Orientation Straight 02/26/2022 10 :36 AM EDT documented as of this encounter Plan of Treatment Upcoming Encounters Date Type Department Care Team (Late st Contact Info) Description 10/26/2024 9:00 AM EDT Office Visit [facility] [address] [place] [address] Lexy Kendall MD [address] [place] [address] documented as of this encounter Visit Diagnoses Not on filedocumented in this encounter Additional Health Concerns Assessment Noted Time PHQ-9 Depression Total Score: 18 023 12:45 PM EDT documented as of this encounter Care Teams Well Point Pumping Supervisor Relationship Specialty Start Date End Date Rojas Cox MD [address] [place] [address] PCP - General Internal Medicine 03/09/19 02/11/24 Lexy Kendall MD [address] [place] [address] PCP - General Internal Medicine 02/12/24 documented as of this encounter
--- OUTSIDE RECORDS SUMMARY | 2024-08-05 11:21 | XMS_ITS | Encounter Summary ---
Author Organization [employer] Address [address] [place] [address] [address] [place] [address] Care Team Providers Care Director Of Logistics Name Role Phone Rojas Cox MD Primary Care Prov ider Lexy Kendall MD Primary Care Provider [phone] Encounter Details Date Type Department Care Team (Late st Contact Info) Description 12/04/2022 Orders Only [facility] [address] [place] [address] Rupa Velasco LPN Social History Tobacco Use Types Packs/Day Years Used Date Smoking Tobacco: Never Assessed Depression Answer Date Recorded Patient Health Questionnaire-9 Score 18 09/13/2022 Depression Answer Date Recorded Patient Health Questionnaire-2 [...] Description 10/26/2024 9:00 AM EDT Office Visit [facility] [address] [place], [place] [phone] Lexy Kendall MD [address] [place] [address] documented as of this encounter Visit Diagnoses Not on filedocumented in this encounter Additional Health Concerns Assessment Noted Time PHQ-9 Depression Total Score: 18 023 12:45 PM EDT documented as of this encounter Care Teams Director Of Logistics Relationship Specialty Start Date End Date Rojas Cox MD [address] [place] [address] PCP - General Internal Medicine 03/09/19 02/11/24 Lexy Kendall MD [address] [place] [address] PCP - General Internal Medicine 02/12/24 documented as of this encounter
--- OUTSIDE RECORDS SUMMARY | 2024-08-05 11:22 | XMS_ITS | Encounter Summary ---
Author Organization [facility] Address [address] [place] [address] Care Team Providers Care Silk Screen Printer Name Role Phone Name, Angelito WILLSON Primary Care Provider UnavailAshwini Montoya MD Primary Care Provider Un available Meenu Irving MD Primary Care Provider Unavail able Ashwini Lara MD Primary Care Provider Un available Encounter Details Date Type Department Care Team Description 08/04/2014 Community Development Director Report Medical Records [address] [place] [address] Bimal Liao MD Social History Tobacco Use Types Packs/Day Years Used Date Smoking Tobacco: Former Smokeless Tobacco: Former Comments:quit over 40 yrs ag o Alcohol Use Standard Drinks/Week Comments No 0 (1 standard drink = 0.6 oz pur e alcohol) Sex Assigned at Date Recorded Not on file documented as of this encounter Plan of Treatment Not on file documented as of this encounter Visit Diagnoses Not on filedocumented in this encounter Care Teams Silk Screen Printer Relationship Specialty Start Date End Date Name, MD Angelito PCP - General Internal Medicine 07/18/12 05/19/15 Ashwini Lara MD PCP - General Internal Medicine 12/30/1502/16 Meenu Irving MD PCP - General Internal Medicine 02/17/19 Ashwini Lara MD PCP - General 05/20/15 12/29/15 documented as of this encounter
--- OUTSIDE RECORDS SUMMARY | 2024-08-05 11:22 | XMS_ITS | Encounter Summary ---
Author Organization [facility] Address [address] [place] [address] Care Team Providers Care Painter And Body Mechanic Apprentice Name Role Phone Name, Angelito WILLSON Primary Care Provider UnavailAshwini Montoya MD Primary Care Provider Un available Meenu Irving MD Primary Care Provider Unavail able Ashwini Lara MD Primary Care Provider Un available Encounter Details Date Type Department Care Team Description 03/29/2015 Cleaning [place]ron Report Medical Records [address] [place] [address] Bimal Liao MD Social History Tobacco Use [...] on filedocumented in this encounter Care Teams Painter And Body Mechanic Apprentice Relationship Specialty Start Date End Date Name, MD Angelito PCP - General Internal Medicine 07/18/12 05/19/15 Ashwini Lara MD PCP - General Internal Medicine 12/30/1502/16 Meenu Irving MD PCP - General Internal Medicine 02/17/19 Ashwini Lara MD PCP - General 05/20/15 12/29/15 documented as of this encounter
--- OUTSIDE RECORDS SUMMARY | 2024-08-05 11:22 | XMS_ITS | Encounter Summary ---
Author Organization [facility] Address [address] [place] [address] Care Team Providers Care Surgical Instrument Technician Name Role Phone Ashwini Lara MD Primary Care Provider Un available Meenu Irving MD Primary Care Provider Unavail able Encounter Details Date Type Department Care Team Description 07/09/2016 SCAN Medical Records [address] [place] [address] Abstract, Provider Social History Tobacco Use Types Packs/Day Years [...] on filedocumented in this encounter Care Teams Surgical Instrument Technician Relationship Specialty Start Date End Date Ashwini Lara MD PCP - General Internal Medicine 12/30/1502/16 Meenu Irving MD PCP - General Internal Medicine 02/17/19 documented as of this encounter
--- OUTSIDE RECORDS SUMMARY | 2024-08-05 11:22 | XMS_ITS | Encounter Summary ---
Author Organization [facility] Address [address] [place] [address] Care Team Providers Care Mix Chemist Name Role Phone Ashwini Lara MD Primary Care Provider Un available Meenu Irving MD Primary Care Provider Unavail able Ashwini Lara MD Primary Care Provider Un available Encounter Details Date Type Department Care Team Description 10/03/2015 Business Doc Medical Records [address] [place] [address] Abstract, Provider Social History Tobacco Use Types [...] on filedocumented in this encounter Care Teams Mix Chemist Relationship Specialty Start Date End Date Ashwini Lara MD PCP - General Internal Medicine 12/30/1502/16 Meenu Irving MD PCP - General Internal Medicine 02/17/19 Ashwini Lara MD PCP - General 05/20/15 12/29/15 documented as of this encounter
--- OUTSIDE RECORDS SUMMARY | 2024-08-05 11:22 | XMS_ITS | Encounter Summary ---
Author Organization [facility] Address [address] [place] [address] Care Team Providers Care Plant Ecologist Name Role Phone Ashwini Lara MD Primary Care Provider Un available Meenu Irving MD Primary Care Provider Unavail able Encounter Details Date Type Department Care Team Description 10/12/2016 Historical Guide Report Medical Records [address] [place] [address] Aria Bradford MD Social History Tobacco Use Types Packs/Day [...] on filedocumented in this encounter Care Teams Plant Ecologist Relationship Specialty Start Date End Date Ashwini Lara MD PCP - General Internal Medicine 12/30/1502/16 Meenu Irving MD PCP - General Internal Medicine 02/17/19 documented as of this encounter
--- OUTSIDE RECORDS SUMMARY | 2024-08-05 11:22 | XMS_ITS | Encounter Summary ---
Author Organization [facility] Address [address] [place] [address] Care Team Providers Care Juvenile Corrections Officer Name Role Phone Meenu Irving MD Primary Care Provider Unavail able Encounter Details Date Type Department Care Team Description 11/22/2020 Corporate Treasurer Report Medical Records [address] [place] [address] Gopal Galvan [address] [place] [address] Social History Tobacco Use Types Packs/Day Years [...] on filedocumented in this encounter Care Teams Juvenile Corrections Officer Relationship Specialty Start Date End Date Meenu Irving MD PCP - General Internal Medicine 02/17/19 documented as of this encounter
--- OUTSIDE RECORDS SUMMARY | 2024-08-05 11:22 | XMS_ITS | Encounter Summary ---
Author Organization [facility] Address [address] [place] [address] Care Team Providers Care Vacuum Form Operator Name Role Phone eMenu Irving MD Primary Care Provider Unavail able Encounter Details Date Type Department Care Team Description 05/31/2020 Hospital Medical Records [address] [place] [address] Social History Tobacco Use Types Packs/Day Years Used Date Smoking Tobacco: Former Smokeless Tobacco: Former Comments:quit over 40 yrs ag o Alcohol Use Standard Drinks/Week Comments No 0 (1 standard drink = 0.6 oz pur e alcohol) Sex Assigned at Date Recorded Not on file documented as of this encounter Plan of Treatment Not on file documented as of this encounter Procedures Procedure Name Priority Date/Time Associated Diagnosis Comments OUTSIDE EKG Routine 05/31/2020 OUTSIDE PLAIN FILM Routine 05/31/2020 documented in this encounter Results * OUTSIDE PLAIN FILM (05/31/2020) Provider Abstract RADIOLOGY * OUTSIDE EKG (05/31/2020) Provider Abstract CARDIOLOGY documented in this encounter Visit Diagnoses Not on filedocumented in this encounter Care Teams Vacuum Form Operator Relationship Specialty Start Date End Date Meenu Irving MD PCP - General Internal Medicine 02/17/19 documented as of this encounter
--- OUTSIDE RECORDS SUMMARY | 2024-08-05 11:22 | XMS_ITS | Clinical Summary ---
Author Organization [employer] Address [address] [place] [address] Care Team Providers Care Honing Machine Operator Tool Name Role Phone Lexy Kendall MD Primary Care Provider [phone] Allergies No known active allergies Medications * This document contains information received from the source organization and may not represent a complete record from that organization. amLODIPine (Norvasc) 10 MG tabletIndications :Primary hypertension TAKE ONE TABLET DAILY AT NOON 90 tablet 3 Active furosemide (Lasix) 20 MG tabletIndications :Primary hypertension TAKE ONE TABLET DAILY AT NOON 90 tablet 6 Active levothyroxine (Synthroid, Levoxyl) 88 MCG tabletIndications :Acquired hypothyroidism TAKE ONE TABLET EVERY MORNING 90 tablet 6 Active rosuvastatin (Crestor) 40 MG tablet Take 40 mg by mouth Once per day. Active carbidopa-levodop a (Sinemet) 25-100 MG tablet Take 0.5 tablets by mouth 3 times daily. Active ezetimibe (Zetia) 10 MG tablet Take 1 tablet by mouth Once per day. Active cyanocobalamin (Vitamin B-12) 1000 MCG tablet Take 1 tablet by mouth Once per day. Active metoprolol succinate XL (Toprol-XL) 25 MG 24 hr tablet TAKE ONE TABLET AT NOON 90 tablet 3 Active colchicine 0.6 MG tablet Take 1 tablet (0.6 mg) by mouth Once per day. 30 tablet 11 024 2024 Active allopurinol (Zyloprim) 100 MG tablet Take 1 tablet (100 mg) by mouth Once per day. 30 tablet 11 024 2024 Active Aspirin Adult Low Strength 81 MG EC tablet TAKE ONE TABLET AT NOON 90 tablet 1 Active docusate sodium (Colace) 100 MG capsule TAKE ONE CAPSULE IN THE MORNING AND EVENING 60 capsule 6 Active citalopram (CeleXA) 40 MG tabletIndications :Major depressive disorder with single episode, in full remission (CMS/HCC) TAKE ONE TABLET DAILY AT NOON 90 tablet 3 Active cholecalciferol (Vitamin D-3) 25 MCG tablet TAKE ONE TABLET EVERY EVENING 90 tablet 1 025 Active Bisacodyl EC 5 MG EC tabletIndications :Chronic idiopathic constipation TAKE ONE TABLET EVERY NIGHT AT BEDTIME NEEDED FOR CONSTIPATION 30 tablet 3 025 Active bisacodyl (Dulcolax) 5 MG EC tabletIndications :Chronic idiopathic constipation Take 1 tablet (5 mg) by mouth if needed each day for constipation. Do not crush, chew, or split. 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 01/27/2024 Parkinson's disease without dyskinesia, with fluctuating manifestations 11/04/2023 Chronic idiopathic constipation 04/25/2023 Assessment & Plan (04/25/2023 6:46 PM EST): Aly add docusate to treatment, increase fiber and water Prostate cancer screening 02/05/2023 Screening for colon cancer 10/09/2022 Assessment & Plan (10/09/2022 10:42 AM EDT): Due in 2023 History of tremor 06/04/2022 Renal cyst 03/12/2019 [facility] on CPAP 02/18/2019 Essential hypertension 10/12/2016 Assessment & Plan (05/16/2023 11:44 AM EST): On amlodipine and metoprolol, has not been monitoring his blood pressure, reinforced low sodium diet, Assessment & Plan (04/25/2023 6:47 PM EST): Controlled, continue amlodipine, lasix, metoprolol, no lower extremity swelling, new labs will be ordered for guidance Assessment & Plan (10/09/2022 10:45 AM EDT): Patient is not taking his afternoon bp med, reinforced low sodium diet and exercise as tolerated Assessment & Plan (08/24/2022 9:51 AM EDT): Not at target, he denied active chest pain, shortness of breath, no lower extremity swelling, will increase amlodipine to 10mg, told he may take another 5mg now and receck his bp, target <130/80. Follow up in 2 weeks, told to follow up with cardiology as well. CKD (chronic kidney disease) stage 3, GFR 30-59 ml/min 09/04/2013 Old myocardial infarction 09/04/2013 Overview (06/04/2022): NSTEMI 2008 Diabetes mellitus 09/04/2013 Overview (06/04/2022): Cataract noted on outside eye exam 03/23/13 Dr. Xander Saucedo CKD Assessment & Plan (10/01/2023 6:37 PM EDT): Controlled with diet, will discontinue metformin, continue low carb/no sugar diet Assessment & Plan (04/25/2023 6:51 PM EST): Controlled, A1c 6.2, continue same treatment, continue low carb/sugar diet Assessment & Plan (08/24/2022 9:48 AM EDT): Controlled, last a1c from 06/21 was 6.2%, no reported episode of hypoglycemia, continue current treatment Hyperlipidemia with target LDL less than 70 10/2012 Overview (06/04/2022): IMO update Assessment & Plan (05/17/2023 3:10 PM EST): New labs will be ordered lipid target <70 Assessment & Plan (10/09/2022 10:44 AM EDT): Patient daughter states patient is not taking his medications, oriented of cholesterol/ldl finding and risk of not taking statin therapy, patient is high risk for stroke/NE. Will leave order to be repeated in 2 months Assessment & Plan (08/24/2022 9:48 AM EDT): Will order new labs for guidance of therapy, target <70 Hypothyroidism 12/03/2012 Assessment & Plan (10/01/2023 6:39 PM EDT): New labs will be ordered for guidance of therapy Assessment & Plan (05/17/2023 3:10 PM EST): Labs will be reordered, he was not taking his medications consitently Assessment & Plan (04/25/2023 6:49 PM EST): Clinically euthyroid, new labs will be ordered for guidance of therapy CAD (coronary artery disease) 09/01/2012 Assessment & Plan (10/01/2023 6:37 PM EDT): Followed by cardiology, no further chest pain episode reported Assessment & Plan (04/25/2023 6:50 PM EST): Patient lost cardiology follow up, told to call back office, no reported episode of chest pain/shortness of breath Depression 09/01/2012 Assessment & Plan (05/17/2023 3:10 PM EST): Will refer to therapist, for follow up MDD Assessment & Plan (10/09/2022 10:44 AM EDT): Patient is not compliant with citalopram, discussed importance of medication adherance Assessment & Plan (09/13/2022 2:34 PM EDT): Assessment and Plan: Tommy was engaged with active reflective listening and open-ended questions. Assessed symptoms, risks, and social supports with direct questions. Discussed current symptoms intensity and frequency. Emotions were normalized and validated. Tommy identified watching tv as coping mechanisms and his family as protective factors. Discussed OP therapy and Medication Management, he agreed to therapist and declined Med. Management at this time. Provided education around integrated medicine and the options of follow up BE's as needed. Provided contact information should questions or concerns arise. Plan: Tommy will continue to engage in effective coping mechanisms discussed in session. He will be refer for OP services in [place] per his request. Patient with lack of motivation, hopelessness, insomnia, lack of energy, decrease appetite, feeling a like a failure, thoughts. Patient will benefit from Ind. Therapy to learn coping skills ot manage sxs. At this time Tommy Boyd meets criteria for Visit Diagnoses: Problem List Items Addressed This Visit Other Depression Patient ready to address current needs Yes Strengths include Tommy is in action stage of change and has informal support. PLAN: 1. Follow up with [facility]: Not recommended for follow-up 2. Patient goal is control his depression 3. Behavioral Recommendations a. Ind Therapy b. Practice of coping Mechanisms c. Contact [facility] as needed Assessment & Plan (08/24/2022 9:50 AM EDT): On celexa, refers episode of decreased mood, feeling tired and depressed, will refer to behavioral therapy, no active suicidal/homicidal ideas Presence of stent in coronary artery 09/01/2012 Vitamin D deficiency 09/01/2012 Encounters Date Type Department Care Team Description 07/30/[address] [facility] [address] [place] [address] Lexy Kendall MD 07/21/2024 10:00 AM EDT Office Visit [facility] [address] [place], [place] [phone] Karol Sanchez MD Hearing deficit, bilateral (Primary Dx); Type 2 diabetes mellitus with stage 3a chronic kidney disease, unspecified whether petroleum terminal plant operator insulin use ([facility]); Blurry vision, left eye 07/21/2024 Travel 07/20/2024 Telephone [facility] [address] [place] [address] Lexy Kendall MD Chart Prep 07/20/[address] [facility] [address] [place] [address] Lexy Kendall MD nurse triage 07/19/2024 Refill [facility] [address] [place] [address] Lexy Kendall MD Chronic idiopathic constipation 07/10/2024 Population Health Risk Score [facility] ([facility] Department [address] [phone] Provider, Population Health Generic 07/03/2024 Refill [facility] [address] [place] [address] Lexy Kendall MD 07/03/2024 Refill [facility] [address] [place] [address] Rojas Cox MD Major depressive disorder with single episode, in full remission ([facility]/HCC) 06/30/2024 1:30 PM EST Office Visit [facility] [address] [place] [address] Lexy Kendall MD Pilar cyst of scalp (Primary Dx); Stage 3b chronic kidney disease (CMS/HCC); Essential hypertension; Coronary artery disease involving coronary bypass graft of [place] heart, unspecified whether angina present; Type 2 diabetes mellitus with stage 3a chronic kidney disease, unspecified whether petroleum terminal plant operator insulin use (CMS/HCC) 06/30/2024 Travel 06/29/[address] [facility] [address] [place] [address] Lexy Kendall MD Chart Prep 05/14/2024 Orders Only [facility] External Provider, [facility] 05/13/[address] [facility] [address] [place] [address] Rojas Cox MD 05/07/2024 Orders Only GENERIC EXTERNAL DATA DEPARTMENT Provider, Generic External Data from Last 3 Months Immunizations Name Administration Dates Next Due Hep B, adult 11/21/2021,08/29/2021,08/01/2021 Influenza High-dose Quadriva lent Preservative Free 02/05/2023,01/15/2022,02/24/2021,02/16 Influenza Injectable Quadriv alant Preservative Free IIV4 MDCK 03/18/2018,03/04/2017 Influenza, High Dose Seasona l, Preservative Free 01/16/2019 Influenza, IIV3, injectable 02/07/2016, 5,03/05/2013 Influenza, Unspecified 03/16/2014 Pneumococcal Conjugate PCV 13 05/31/2016, 016,06/05/2013 Pneumococcal Polysaccharide PPSV23 05/31/2016, Tdap 07/12/2015,12/02/2012 Zoster, live 03/08/2016,03/17/2013 Social History Tobacco Use Types Packs/Day Years Used Date Smoking Tobacco: Never Passive Smoke Exposure: Never Smokeless Tobacco: Never Tobacco Cessation:Counseling Given: Not Answered Depression Answer Date Recorded Patient Health Questionnaire-9 Score 6 06/30/2024 Patient Health Questionnaire-9 Score 6 06/30/2024 Last PHQ-9: Questionnaire Data Not on file 0 06/30/2024 Housing Stability Answer Date Recorded What is your housing situation today? I have lolis cazares 06/30/[address] you li ve. Do you have problems with any of the following? None of the above 06/30/2024 Food Insecurity Answer Date Recorded Within the past 12 months, y ou worried that your food would run out before you got money to buy more: Never True 06/30/2024 Within the past 12 months,th e food you bought just didn't last and you didn't have enough money to get more: Never True 07/2024 Transportation Answer Date Recorded In the past 12 months, has l ack of transportation kept you from medical appts, meetings, work or from getting things needed for daily living? No 06/30/2024 Utilities Answer Date Recorded In the past 12 months, has t he electric, gas, oil or water company threatened to shut off services in your home? No 06/30/2024 Depression Answer Date Recorded Patient Health Questionnaire-2 Score 2 06/30/2024 Internet Access Answer Date Recorded Internet Access Q1 Yes 06/30/2024 Internet Access Q2 Not on file 06/30/2024 Sex and Gender Information Value Date Recorded Sex Assigned at Male 02/26/2022 10:36 AM EDT Legal Sex Male 10:36 AM EDT Gender Identity Male 02/26/2022 10:36 AM EDT Sexual Orientation Straight 02/26/2022 10 :36 AM EDT Last Filed Vital Signs Vital Sign Reading Time Taken Comments Blood Pressure 133/76 07/21/2024 10:02 AM EDT Pulse 78 07/21/2024 10:02 AM EDT Temperature 36.6 ??C (97.9 ??F) 07/21/2024 10:02 AM E DT Respiratory Rate 20 07/21/2024 10:02 AM EDT Oxygen Saturation 97% 07/21/2024 10:02 AM EDT Inhaled Oxygen Concentration - - Weight 78.5 kg (173 lb) 07/21/2024 10:02 AM EDT Height 161.3 cm (5' 3.5 ) 07/21/2024 10:02 AM ED T Body Mass Index 30.16 07/21/2024 10:02 AM EDT Plan of Treatment Upcoming Encounters Date Type Department Care Team (Late st Contact Info) Description 10/26/2024 9:00 AM EDT Office Visit [facility] [address] [place] [address] Lexy Kendall MD [address] [place] [address] Health Maintenance Due Date Last Done Comments Zoster Vaccines (2 of 3) 05/03/2016 03/08/2016, 02/27 RSV Patients and Patients Aged 60 years or older (1 - 1-dose 75+ series) 2023 COVID-19 Vaccine ( - season) 2023 05/08/2021, 11/09/2020, 10/19/2020 Influenza Vaccine (#1) 2023 3, 01/15/2022, 02/24/2021, Additional history exists Diabetes: Hemoglobin A1C 09/02/2024 024, 10/01/2023, 02/05/2023, Additional history exists Diabetes: Foot Exam 01/26/2025 01/27/2024, 10/01/2023, 10/01/2023, Additional history exists Lipid Panel 01/26/2025 01/27/2024, 01/27, 10/05/2022, Additional history exists Eye Exam 02/19/2025 02/20/2024 Alcohol/Substance Use Screening 06/30/2025 06/30/2024 Depression Screening 06/30/2025 06/30/2024, 07/01/19 SDOH Screening 06/30/2025 06/30/2024 DTaP/Tdap/Td Vaccines (3 - Td or Tdap) 07/11/2025 07/12/2015, 12/02/2012 Tobacco Screening 07/21/2025 07/21/2024 Pneumococcal Vaccine: 50+ Years Completed 05/31/2016, 05/31/2016, 08/11/2015, Additional history exists Hepatitis B Vaccines Completed 11/21/2021, 08/29/2021, 08/01/2021 Hepatitis C Screening Completed 02/05/2023 HIB Vaccines Aged Out No longer eligi ble based on patient's age to complete this topic HPV Vaccines Aged Out No longer eligi ble based on patient's age to complete this topic Hepatitis A Vaccines Aged Out No long er eligible based on patient's age to complete this topic IPV Vaccines Aged Out No longer eligi ble based on patient's age to complete this topic Meningococcal Vaccine Aged Out No kathi barbara eligible based on patient's age to complete this topic RSV under 20 months Aged Out No longe r eligible based on patient's age to complete this topic Rotavirus Vaccines Aged Out No longer eligible based on patient's age to complete this topic Procedures Procedure Name Priority Date/Time Associated Diagnosis Comments POCT HEMOGLOBIN Routine 07/21/2024 10:40 AM EDT Type 2 diabetes mellitus with stage 3a chronic kidney disease, unspecified whether jail insulin use ([facility]) POCT GLUCOSE Routine 07/21/2024 10:40 AM EDT Type 2 diabetes mellitus with stage 3a chronic kidney disease, unspecified whether jail insulin use (CMS/HCC) CT ABDOMEN WO CONTRAST Routine 3:44 PM EST PROTEIN CREATININE RATIO, URINE Routine 05/07/2024 2:50 PM EST PHOSPHOLIPASE A2 RECEPTOR (PLA2R) AB PANEL Routine 05/07/2024 2:43 PM EST IMMUNOFIXATION, SERUM Routine 05/07/2024 2:43 PM EST COMPLEMENT COMPONENT C4C Routine 05/07/2024 2:43 PM EST COMPLEMENT COMPONENT C3C Routine 05/07/2024 2:43 PM EST PROTEINASE-3 ANTIBODY Routine 05/07/2024 2:43 PM EST MYELOPEROXIDASE ANTIBODY (MPO) Routine 05/07/2024 2:43 PM EST GLOMERULAR BASEMENT MEMBRANE ANTIBODY (IGG) Routine 05/07/2024 2:43 PM EST DNA (DS) ANTIBODY Routine 05/07/2024 2:4 3 PM EST HEPATITIS B SURFACE ANTIGEN, EIA Routine 05/07/2024 2:43 PM EST HEPATITIS B CORE AB TOTAL Routine 05/07/2024 2:43 PM EST VITAMIN D,25-OH,TOTAL,IA Routine 05/07/2024 2:43 PM EST PTH, INTACT WITHOUT CALCIUM Routine 05/07/2024 2:43 PM EST PHOSPHATE ( PHOSPHORUS) Routine 05/07/2024 2:43 PM EST CALCIUM Routine 05/07/2024 2:43 PM EST CREATININE, SERUM Routine 05/07/2024 2:4 3 PM EST UREA NITROGEN (BUN) Routine 05/07/2024 2 :43 PM EST ELECTROLYTE PANEL Routine 05/07/2024 2:4 3 PM EST CBC WITH AUTO DIFFERENTIAL Routine 05/07/2024 2:43 PM EST POCT GLYCATED HEMOGLOBIN, TOTAL Routine 03/05/2024 2:21 PM EST Type 2 diabetes mellitus with stage 3a chronic kidney disease, unspecified whether petroleum terminal plant operator insulin use (CMS/HCC) HM DIABETES EYE EXAM Routine 02/20/2024 3:45 PM EDT LIPID PANEL, STANDARD Routine 01/27/2024 4:11 PM EDT Type 2 diabetes mellitus with stage 3a chronic kidney disease, unspecified whether petroleum terminal plant operator insulin use (CMS/HCC) HEPATITIS C AB W/REFL TO HCV RNA, QN, PCR Routine 02/05/2023 12:40 PM EDT Type 2 diabetes mellitus with stage 3a chronic kidney disease, unspecified whether petroleum terminal plant operator insulin use (CMS/HCC) from Last 3 Months or Most Recently Relevant to Health Maintenance Results * POCT Glucose (07/21/2024 10:40 AM EDT) Glucose Blood, POC 97 60 - 200 mg/dL QC Media Lot # [id number] Lot# Expiration Date 7325 Blood Capillary blood specimen / Unknown 07/21/2024 10:40 AM EDT Karol Sanchez MD POINT OF CARE TEST ENTER/EDIT ORDERABLES Final Result * (ABNORMAL) POCT Hemoglobin (07/21/2024 10:40 AM EDT) Hemoglobin 14.1(A) 13.0 - 17.0 QC Media Lot # [id number] Lot# Expiration Date 42,026 Blood 07/21/2024 10:4 0 AM EDT us Karol Sanchez MD POINT OF CARE TEST ENTER/EDIT ORDERABLES Edited Result - Final * CT abdomen w/o Contrast (05/14/2024 3:44 PM EST) Anatomical Region Laterality Modality Body, Abdomen Computed Tomogra phy 05/14/2024 3:44 PM EST Narrative 05/21/2024 11:49 AM EST ? [facility] ?[address] ?[place] [address] ? CT Scan Report ? Signed ? Patient: Tommy Alvarenga ?MR ?? #: [id number] ? : 1950 ?Acct:[id number] ? Age/Sex: 74 / M ?ADM Date: 05/14/24 ? Loc: HO.CT ? Attending Dr: Bipin Lockwood MD ? Ordering Physician: Bipin Lockwood MD ?? Date of Service: 05/14/24 ?? Procedure(s): CT abdomen wo IV con ?? Accession Number(s): [id number] ? cc: Lexy Kendall MD; Bipin Lockwood MD ? Report Number: ?? [id number]: Total DLP = ??294.00 mGy-cm ?? EXAMINATION: ??CT ABDOMEN WITHOUT IV CONTRAST ? HISTORY: N28.1 - Cyst of kidney, acquired ? COMPARISON: Correlation is made with a renal ultrasound dated 05/10/2024. ? TECHNIQUE: CT scan of the abdomen was performed without contrast using ?? standard departmental protocol. ?? Coronal and sagittal reformatted ?? images were generated and reviewed. Intravenous contrast was not ?? utilized due to chronic kidney disease, stage IIIa ? This CT exam was performed with one or more of the following dose ?? reduction techniques: automated exposure control, adjustment of the mA ?? and/or kV according to patient size, use of iterative reconstruction ?? technique. ? DLP: 94 mGy-cm ? FINDINGS: ? LOWER CHEST: The visualized lung bases are clear. There is no pleural ?? effusion. ? CARDIOVASCULATURE: The heart is normal in size. ??There is no ?? pericardial effusion. ? LIVER: ??The liver is normal in size and contour. ??The liver has an ?? unremarkable unenhanced appearance. ? GALLBLADDER / BILE DUCTS: ??The gallbladder is unremarkable. There is no ?? intra or extrahepatic biliary ductal dilatation. ? SPLEEN: The spleen is normal in size and has an unremarkable unenhanced ?? appearance. ? PANCREAS: The pancreas has an unremarkable unenhanced appearance. ? ADRENAL GLANDS: Unremarkable. ? KIDNEYS/RETROPERITONEUM: No renal calculi are identified. There is no ?? hydronephrosis. ? LYMPH NODES: ??No retroperitoneal lymphadenopathy is identified in the ?? abdomen or pelvis. There are numerous rounded lesions in both kidneys, ?? many of which are hyperdense. The largest lesion on the right is at the ?? lower pole measuring 4.3 cm in size. Several of the lesions demonstrate ?? wall calcification. This cannot be adequately evaluated without ?? intravenous contrast material to assess for contrast enhancement. ? VASCULATURE: ??The abdominal aorta demonstrates atherosclerotic ?? calcification, but is normal in caliber. ? MESENTERY/PERITONEUM: No free fluid. No masses. ??There is no free ?? intraperitoneal gas. ? STOMACH: ??There is a small hiatal hernia. The remainder of the stomach ?? is filled with debris. ? SMALL BOWEL: ?? The visualized small bowel is normal in caliber. ? COLON: ??The visualized portion of the colon is unremarkable. ? BONES / SOFT TISSUES: ??There is degenerative disc disease of the spine. ? CT/CT abdomen wo IV con ?? IMPRESSION: ?? Numerous rounded lesions in both kidneys which cannot be adequately ?? evaluated without postcontrast imaging. Based on the ultrasound ?? appearance, a lesion at the lower pole of the right kidney in ?? particular is suspicious for neoplasm. Urologic consultation is ?? recommended. ? Electronically signed by: ??Chavez Diaz MD ??05/21/2024 11:46 AM EST ?? RP ? Dictated By: ?Chavez Diaz MD ? Signed By: ?<Electronically signed by Chavez Diaz MD in OV> ?05/21/24 1146 ? DD/ 1544 ? TD/TT: 05/14/24 1612 ? Ballet Teacher: ? Procedure Note Donotuseinterpreter, Image - 05/21/[address] [address] [address] Scan Report Signed Patient: Tommy Alvarenga AMR #: [id number] : 8Acct:[id number] Age/Sex: 74 / MADM Date: 05/14/24 Loc: HO.CT Attending Dr: Bipin Lockwood MD Ordering Physician: Bipin Lockwood MD Date of Service: 05/14/24 Procedure(s): CT abdomen wo IV con Accession Number(s): [id number] cc: Lexy Kendall MD; Bipin Lockwood MD Report Number: [id number]: Total DLP = 294.00 mGy-cm EXAMINATION: CT ABDOMEN WITHOUT IV CONTRAST HISTORY: N28.1 - Cyst of kidney, acquired COMPARISON: Correlation is made with a renal ultrasound dated 05/10/2024. TECHNIQUE: CT scan of the abdomen was performed without contrast using standard departmental protocol. Coronal and sagittal reformatted images were generated and reviewed. Intravenous contrast was not utilized due to chronic kidney disease, stage IIIa This CT exam was performed with one or more of the following dose reduction techniques: automated exposure control, adjustment of the mA and/or kV according to patient size, use of iterative reconstruction technique. DLP: 94 mGy-cm FINDINGS: LOWER CHEST: The visualized lung bases are clear. There is no pleural effusion. CARDIOVASCULATURE: The heart is normal in size. There is no pericardial effusion. LIVER: The liver is normal in size and contour. The liver has an unremarkable unenhanced appearance. GALLBLADDER / BILE DUCTS: The gallbladder is unremarkable. There is no intra or extrahepatic biliary ductal dilatation. SPLEEN: The spleen is normal in size and has an unremarkable unenhanced appearance. PANCREAS: The pancreas has an unremarkable unenhanced appearance. ADRENAL GLANDS: Unremarkable. KIDNEYS/RETROPERITONEUM: No renal calculi are identified. There is no hydronephrosis. LYMPH NODES: No retroperitoneal lymphadenopathy is identified in the abdomen or pelvis. There are numerous rounded lesions in both kidneys, many of which are hyperdense. The largest lesion on the right is at the lower pole measuring 4.3 cm in size. Several of the lesions demonstrate wall calcification. This cannot be adequately evaluated without intravenous contrast material to assess for contrast enhancement. VASCULATURE: The abdominal aorta demonstrates atherosclerotic calcification, but is normal in caliber. MESENTERY/PERITONEUM: No free fluid. No masses. There is no free intraperitoneal gas. STOMACH: There is a small hiatal hernia. The remainder of the stomach is filled with debris. SMALL BOWEL: The visualized small bowel is normal in caliber. COLON: The visualized portion of the colon is unremarkable. BONES / SOFT TISSUES: There is degenerative disc disease of the spine. CT/CT abdomen wo IV con IMPRESSION: Numerous rounded lesions in both kidneys which cannot be adequately evaluated without postcontrast imaging. Based on the ultrasound appearance, a lesion at the lower pole of the right kidney in particular is suspicious for neoplasm. Urologic consultation is recommended. Electronically signed by: Chavez Diaz MD 05/21/2024 11:46 AM EST Dictated By: Chavez Diaz MD Signed By: <Electronically signed by Chavez Diaz MD in OV> 05/21/24 1146 DD/ 1544 TD/TT: 05/14/24 1612 Ballet Teacher: us [facility] External Provider IMG CT PROCEDURES Final Result * (ABNORMAL) Protein Creatinine Ratio, Urine (05/07/2024 2:50 PM EST) Creatinine, Urine 59.67 mg/dL [facility] Protein, Total, Random Urine 15(H) <12 mg/dL [facility] Protein/Creati nine Ratio, Ur 0.25(H) <0.2 [facility] Comment:The spot urine prote in:creatinine ratio may increase to 0.3during normal . 05/07/2024 2:50 PM EST 05/07/2024 5:36 PM EST Generic External Data Provider LAB URINE ORDERAB LES Final Result Performing Organization Address [facility] Co de Phone Number [facility] [address] [place] [phone] * Proteinase-3 Antibody (05/07/2024 2:43 PM EST) Proteinase-3 Antibody <1.0 [facility] Comment:Value Interpretation ----- <1.0 No Antibody Detected > or = 1.0 Antibody DetectedAutoantibodies to proteinase-3 (MN-3) are accepted ascharacteristic for granulomatosis with polyangiitis(GPA, Jefe's), and are detectable in 95% of thehistologically proven cases. The cytoplasmic IFApattern, (c-ANCA), is based largely on autoantibody toPR-3 which serves as the primary antigen.These autoantibodies are present in active disease.THIS TEST WAS PERFORMED AT:[facility] [address] [id number] ALBRIGHT MD 05/07/2024 2:43 PM EST 05/07/2024 6:06 PM EST Generic External Data Provider LAB BLOOD ORDERAB LES Final Result Performing Organization Address [facility] de Phone Number [facility] [address] [place] [phone] * Myeloperoxidase Antibody (MPO) (05/07/2024 2:43 PM EST) Myeloperoxidase Antibody <1.0 [facility] Comment:Value Interpretation ----- <1.0 No Antibody Detected > or = 1.0 Antibody DetectedAutoantibodies to myeloperoxidase (MPO) are commonlyassociated with the following small-vesselvasculitides: microscopic polyangiitis,polyarteritis nodosa, Churg-Alma syndrome,necrotizing and crescentic glomerulonephritis andoccasionally granulomatosis with polyangiitis(GPA, Jefe's). The perinuclear IFA pattern,(p-ANCA) is based largely on autoantibody tomyeloperoxidase which serves as the primary antigen.These autoantibodies are present in active disease.THIS TEST WAS PERFORMED AT:[facility] [place] [id number] ALBRIGHT MD 05/07/2024 2:43 PM EST 05/07/2024 6:06 PM EST Generic External Data Provider LAB BLOOD ORDERAB LES Final Result Performing Organization Address [facility] Co de Phone Number [facility] [address] [place] [phone] * Vitamin D, 25-Hydroxy, Total, Immunoassay (05/07/2024 2:43 PM EST) Vitamin D 25-OH Total 36.8 >30 ng/mL [facility] Comment:Health Based Referen ce Values*< 20 ng/mL Cvvoklemg86-95 ng/mL Insufficient> 30 ng/mL Sufficient*Aliya TRIPLETT. N Engl J Med. 2007;357:266-280Care must be taken in interpreting Vitamin D results fromdifferent laboratories and methodologies. Published datademonstrated that results from patients undergoinghemodialysis may show a negative bias when tested withvarious automated 25-OH vitamin D assays when compared toLC-MS/MS.When testing samples from patients whose predominant form ofVitamin D is Vitamin D2, such as patients receiving VitaminD2 supplementation, results that are subtherapeutic shouldbe confirmed with another method such as LC-MS/MS. 05/07/2024 2:43 PM EST 05/07/2024 5:41 PM EST us Generic External Data Provider LAB BLOOD ORDERAB LES Final Result Performing Organization Address [facility] Co de Phone Number [facility] [address] [place] [phone] * Phospholipase A2 Receptor (PLA2R) Antibody Panel (05/07/2024 2:43 PM EST) [facility] Phospholipase A2 Receptor (PLA2R) Ab, NATALIE <4 RU/mL [facility] Comment:Reference Range: <14 : NEGATIVE 14-19: BORDERLINE >19: POSITIVE Phospholipase A2 Receptor (PLA2R) Ab, IFA NEGATIVE NEGATIVE [facility] Comment:THIS TEST WAS PERFOR MED AT:[facility] [id number] [place] [id number] CARBAJAL MD,PHD,[place] 05/07/2024 2:43 PM EST 05/07/2024 6:06 PM EST Generic External Data Provider LAB BLOOD ORDERAB LES Final Result Performing Organization Address City/[facility]/ZIP Co de Phone Number [facility] [address] [place] [phone] * (ABNORMAL) Creatinine, Serum (05/07/2024 2:43 PM EST) [facility] Creatinine, Serum 1.61(H) 0.5 - 1.4 mg/dL [facility] Estimated Glomerular Filt Rate 42 [facility] Comment:Chronic Kidney Disea se: Estimated GFR < 60 mL/min/1.70z2Myppfx Kidney Disease: Estimated GFR < 15 mL/min/1.73m2 05/07/2024 2:43 PM EST 05/07/2024 5:41 PM EST Generic External Data Provider LAB BLOOD ORDERAB LES Final Result Performing Organization Address City/[facility]/ZIP Co de Phone Number [facility] [address] [place] [phone] * (ABNORMAL) CBC auto differential (05/07/2024 2:43 PM EST) [facility] White Blood Count 8.0 4.8 - 10.8 X10*3/uL [facility] Red Blood Count 4.89 4.60 - 5.80 X10*6/uL [facility] Hemoglobin 14.1 14.0 - 18.0 g/dl [facility] Hematocrit 42.5 42.0 - 52.0 % [facility] Mean Corpuscular Volume 86.9 80.0 - 98.0 fL [facility] Mean Corpuscular Hemoglobin 28.8 27.0 - 33.0 pg [facility] Mean Corpuscular HGB Conc 33.2 31.0 - 36.0 g/dl [facility] Red Cell Distribution Width 11.9 11.0 - 16.0 % [facility] Platelet Count 381 160 - 400 X10*3/uL [facility] Mean Platelet Volume 9.2(L) 9.4 - 12.4 fL [facility] Neutrophils Percent Auto 55.1 45 - 73 % [facility] Imm Gran Pct Auto 0.3 0.0 - 0.4 % [facility] Lymphocytes Percent Auto 33.7 20 - 40 % [facility] Monocytes Percent Auto 8.3 2 - 11 % [facility] Eosinophils Percent Auto 2.0 0 - 4 % [facility] Basophils Percent Auto 0.6 0 - 2 % [facility] NRBC Pct Auto 0.0 0.0 - 0.2 /100WBC [facility] Neutrophils Absolute Auto 4.4 2.0 - 8.3 x10*3/uL [facility] Imm Gran Abs Auto 0.02 0.00 - 0.03 X10*3/uL [facility] Lymphocytes Absolute Auto 2.7 1.2 - 4.9 X10*3/uL [facility] Monocytes Absolute Auto 0.7 0.1 - 1.2 X10*3/uL [facility] Eosinophils Absolute Auto 0.2 0.0 - 0.4 X10*3/uL [facility] Basophils Absolute Auto 0.1 0.0 - 0.2 X10*3/uL [facility] NRBC Abs Auto 0.000 0.0 - 0.012 X10*3/uL [facility] 05/07/2024 2:43 PM EST 05/07/2024 5:41 PM EST Generic External Data Provider LAB BLOOD ORDERAB LES Final Result Performing Organization Address [facility] Co de Phone Number [facility] [address] [place] [phone] * Glomerular Basement Membrane Antibody (IgG) (05/07/2024 2:43 PM EST) Glomerular Basement Memebrane Antibody (IgG) <1.0 AI [facility] Comment:Value Interpretation ----- <1.0 No Antibody Detected > or = 1.0 Antibody DetectedTHIS TEST WAS PERFORMED AT:[facility] [address] [id number] ALBRIGHT MD 05/07/2024 2:43 PM EST 05/07/2024 6:06 PM EST Generic External Data Provider LAB BLOOD ORDERAB LES Final Result Performing Organization Address [facility] Number [facility] [address] [place] [address] [phone] * DNA (ds) Antibody (05/07/2024 2:43 PM EST) Anti DNA DS Antibody <1 IU/mL [facility] Comment:IU/mL Interpretation < or = 4 Negative 5-9 Indeterminate > or = 10 PositiveTHIS TEST WAS PERFORMED AT:[facility] [address] [id number] ALBRIGHT MD 05/07/2024 2:43 PM EST 05/07/2024 6:06 PM EST Generic External Data Provider LAB BLOOD ORDERAB LES Final Result Performing Organization Address [facility]/ZIP Co de Phone Number [facility] [address] [place] [phone] * Hepatitis B surface antigen, EIA (05/07/2024 2:43 PM EST) Hepatitis B Surface Ag Negative Negative [facility] 05/07/2024 2:43 PM EST 05/07/2024 5:56 PM EST us Generic External Data Provider LAB BLOOD ORDERAB LES Final Result Performing Organization Address [facility] Co de Phone Number [facility] [address] [place] [phone] * Hepatitis B Core Antibody, Total (05/07/2024 2:43 PM EST) Hepatitis B Core Antibody Nonreactive Nonreactive [facility] 05/07/2024 2:43 PM EST 05/07/2024 5:56 PM EST Generic External Data Provider LAB BLOOD ORDERAB LES Final Result Performing Organization Address [facility] Co de Phone Number [facility] [address] [place] [address] [phone] * Immunofixation, Serum (05/07/2024 2:43 PM EST) IMMUNOGLOBULIN G 1385 600 - 1540 mg/dL [facility] IMMUNOGLOBULIN A 312 70 - 320 mg/dL [facility] Immunoglobulin M 118 50 - 300 mg/dL [facility] Comment:THIS TEST WAS PERFOR MED AT:[facility] [place] [id number] ALBRIGHT MD Immunofixation Result SEE NOTE [facility] Comment:No monoclonal protei ns detected. 05/07/2024 2:43 PM EST 05/07/2024 6:06 PM EST Generic External Data Provider LAB BLOOD ORDERAB LES Final Result Performing Organization Address [facility] de Phone Number [facility] [address] [place] [phone] * Complement Component C3c (05/07/2024 2:43 PM EST) Complement C3 149 82 - 185 mg/dL [facility] Comment:THIS TEST WAS PERFOR MED AT:[facility] [address] [phone] ALBRIGHT MD 05/07/2024 2:43 PM EST 05/07/2024 5:56 PM EST Generic External Data Provider LAB BLOOD ORDERAB LES Final Result Performing Organization Address [facility] [address] [place] [phone] * Complement Component C4c (05/07/2024 2:43 PM EST) Complement C4 32 15 - 53 mg/dL [facility] Comment:THIS TEST WAS PERFOR MED AT:[facility] [address] [id number] ALBRIGHT MD 05/07/2024 2:43 PM EST 05/07/2024 5:56 PM EST Generic External Data Provider LAB BLOOD ORDERAB LES Final Result Performing Organization Address [facility] de Phone Number [facility] [address] [place] [phone] * BUN (Blood Urea Nitrogen) (05/07/2024 2:43 PM EST) Urea Nitrogen (BUN) 14 9 - 16 mg/dL [facility] 05/07/2024 2:43 PM EST 05/07/2024 5:41 PM EST us Generic External Data Provider LAB BLOOD ORDERAB LES Final Result Performing Organization Address [facility] Co de Phone Number [facility] [address] [place] [phone] * Phosphate (As Phosphorus) (05/07/2024 2:43 PM EST) Phosphorus 3.8 2.7 - 4.5 mg/dL [facility] 05/07/2024 2:43 PM EST 05/07/2024 5:41 PM EST Generic External Data Provider LAB BLOOD ORDERAB LES Final Result Performing Organization Address [facility] Phone Number [facility] [address] [place] [address] [phone] * (ABNORMAL) PTH, Intact Without Calcium (05/07/2024 2:43 PM EST) Parathyroid Hormone, Intact 127.4(H) 8.7 - 77.1 pg/mL [facility] 05/07/2024 2:43 PM EST 05/07/2024 5:56 PM EST us Generic External Data Provider LAB BLOOD ORDERAB LES Final Result Performing Organization Address [facility] Co de Phone Number [facility] [address] [place] [address] [phone] * Calcium (05/07/2024 2:43 PM EST) Calcium 9.8 8.4 - 10.2 mg/dL [facility] 05/07/2024 2:43 PM EST 05/07/2024 5:41 PM EST Generic External Data Provider LAB BLOOD ORDERAB LES Final Result Performing Organization Address [facility] Co de Phone Number [facility] [address] [place] [address] [phone] * Electrolyte Panel (05/07/2024 2:43 PM EST) Sodium 144 135 - 145 mmol/L [facility] Potassium 3.9 3.3 - 5.1 mmol/L [facility] Chloride 108 96 - 108 mmol/L [facility] Carbon Dioxide 27 22 - 29 mmol/L [facility] Anion Gap 13 12 - 20 [facility] 05/07/2024 2:43 PM EST 05/07/2024 5:41 PM EST Generic External Data Provider LAB BLOOD ORDERAB LES Final Result [facility] [address] [place] [address] [phone] * (ABNORMAL) POCT HGB A1C (03/05/2024 2:21 PM EST) Hemoglobin A1C 6.9(A) 4.0 - 6.0 % QC Media Lot # [id number] Lot# Expiration Date Blood 03/05/2024 2:21 PM EST Lexy Kendall MD POINT OF CARE TEST ENTER/ED IT ORDERABLES Final Result * Hm Diabetes Eye Exam (02/20/2024 3:45 PM EDT) Historical Provider HEALTH MAINTENANCE Final Result * (ABNORMAL) Lipid Panel, Standard (01/27/2024 4:11 PM EDT) Triglycerides 313(H) <150 mg/dL [facility] Comment:Desirable Triglyceri de: less than 150 mg/dLBorderline High Triglyceride 150-199 mg/dLHigh Triglyceride: 200-499 mg/dLVery High Triglyceride: greater than or equal to 5OO mg/dL Cholesterol 200(H) <200 mg/dL [facility] Comment:Desirable Cholestero l: less than 200 mg/dLBorderline High Cholesterol: 200-239 mg/dLHigh Cholesterol: greater than 239 mg/dL LDL Cholesterol Calculated 100(H) <100 mg/dL [facility] Comment:Desirable LDL: less than 100 mg/dLNear Optimal/Above Optimal LDL: 110- 129 mg/dLBorderline High LDL: 130-159 mg/dLHigh LDL: 160-189 mg/dLVery High LDL: greater than or equal to 190 mg/dL HDL Cholesterol 38(L) >40 mg/dL [facility] Comment:Desirable HDL: great er than 40 mg/dL Note: This HDL assay may give artificially low results in patients with liver disease. Blood Venous blood specimen / Unknown 01/27/2024 4:11 PM EDT 01/27/2024 5:38 PM EDT us Rojas Miller MD LAB BLOOD ORDERABL ES Final Result Performing Organization Address [facility] Co de Phone Number [facility] [address] [place] [phone] * Hepatitis C Antibody with Reflex to HCV, RNA, Quantitative, Real-Time PCR (02/05/2023 12:40 PM EDT) Hepatitis C Antibody Nonreactive Nonreactive [facility] Comment:Antibodies to HCV no t detected; does not exclude early acuteHCV infection. Blood Venous blood specimen / Unknown 02/05/2023 12:40 PM EDT 02/05/2023 2:06 PM EDT us Rojas Miller MD LAB BLOOD ORDERABL ES Final Result Performing Organization Address [facility] Co de Phone Number [facility] [address] [place] [phone] from Last 3 Months or Most Recently Relevant to Health Maintenance Insurance Care Teams Honing Machine Operator Tool Relationship Specialty Start Date End Date Lexy Kendall MD [address] [place] [phone] PCP - General Internal Medicine 02/12/24
--- OUTSIDE RECORDS SUMMARY | 2024-08-05 11:22 | XMS_ITS | Encounter Summary ---
Author Organization [facility] Address [address] [place] [address] Care Team Providers Care Visual Basic Developer Name Role Phone Name, Angelito WILLSON Primary Care Provider UnavailAshwini Montoya MD Primary Care Provider Un available Meenu Irving MD Primary Care Provider Unavail able Ashwini Lara MD Primary Care Provider Un available Encounter Details Date Type Department Care Team Description 03/19/2013 Business Doc Medical Records [address] [place] [id number] Abstract, Provider Social History Tobacco Use Types [...] on filedocumented in this encounter Care Teams Visual Basic Developer Relationship Specialty Start Date End Date Name, MD Angelito PCP - General Internal Medicine 07/18/12 05/19/15 Ashwini Lara MD PCP - General Internal Medicine 12/30/1502/16 Meenu Irving MD PCP - General Internal Medicine 02/17/19 Ashwini Lara MD PCP - General 05/20/15 12/29/15 documented as of this encounter
--- OUTSIDE RECORDS SUMMARY | 2024-08-05 11:22 | XMS_ITS | Encounter Summary ---
Author Organization [facility] Address [address] [place] [address] Care Team Providers Care Concrete Fence Builder Name Role Phone Name, Angelito WILLSON Primary Care Provider UnavailAshwini Montoya MD Primary Care Provider Un available Meenu Irving MD Primary Care Provider Unavail able Ashwini Lara MD Primary Care Provider Un available Encounter Details Date Type Department Care Team Description 02/27/2013 Orders Only Adult Medicine [address] [address] Name, MD Angelito DM (diabetes mellitus) (Primary Dx) Social History Tobacco Use Types Packs/Day Years Used Date Smoking Tobacco: Former Smokeless Tobacco: Former Comments:quit over 40 yrs ag o Alcohol Use Standard Drinks/Week Comments No 0 (1 standard drink = 0.6 oz pur e alcohol) Sex Assigned at Date Recorded Not on file documented as of this encounter Plan of Treatment Not on file documented as of this encounter Results * (ABNORMAL) LIPID PROFILE (02/28/2013 9:21 AM EDT) Pathologist [facility] Cholesterol 265(H) 0 - 200 mg/dL 03/01/2013 11:19 AM [facility] TRIGLYCERIDES 378(H) 0 - 150 mg/dL 03/01/2013 11:15 AM [facility] HDL CHOLESTEROL 35(L) >40 mg/dL 3 11:19 AM [facility] LDL CALCULATED 155(H) 0 - 100 mg/dL 03/01/2013 11:19 AM [facility] TC-HDLC RATIO 8(H) 0.0 - 4.4 mg/dL 03/01/2013 11:19 AM [facility] 02/28/2013 9:21 AM EDT 02/28/2013 9:21 AM EDT Angelito Aguirre MD LAB Performing Organization Address [facility] Co de Phone Number [address] * HEMOGLOBIN A1C (02/28/2013 9:21 AM EDT) Glycosylated Hemoglobin A1C 6.0 4.0 - 6.0 % 03/01/2013 11:59 AM [facility] Comment: HbA1C VALUES MAY NOT ACCURATELY REFLECT MEAN BLOOD GLUCOSE IN PATIENTS WITH HEMOGLOBIN VARIANTS SUCH HbF, HbS. 02/28/2013 9:21 AM EDT 02/28/2013 9:21 AM EDT Angelito Aguirre MD LAB Performing Organization Address [facility] Co de Phone Number [address] documented in this encounter Visit Diagnoses Diagnosis DM (diabetes mellitus) (HCC)- Primary Type II or unspecified type diabetes mellitus without mention of complication, not stated as uncontrolled documented in this encounter Care Teams Concrete Fence Builder Relationship Specialty Start Date End Date Name, MD Angelito PCP - General Internal Medicine 07/18/12 05/19/15 Ashwini Lara MD PCP - General Internal Medicine 12/30/1502/16 Meenu Irving MD PCP - General Internal Medicine 02/17/19 Ashwini Lara MD PCP - General 05/20/15 12/29/15 documented as of this encounter
--- OUTSIDE RECORDS SUMMARY | 2024-08-05 11:22 | XMS_ITS | Encounter Summary ---
Author Organization [facility] Address [address] [place] [address] Care Team Providers Care Airborne And Air Delivery Specialist Name Role Phone Ashwini Lara MD Primary Care Provider Un available Meenu Irving MD Primary Care Provider Unavail able Ashwini Lara MD Primary Care Provider Un available Encounter Details Date Type Department Care Team Description 12/07/2015 [facility] Medical Records [address] [place] [address] Social History Tobacco Use Types Packs/Day Years [...] on filedocumented in this encounter Care Teams Airborne And Air Delivery Specialist Relationship Specialty Start Date End Date Ashwini Lara MD PCP - General Internal Medicine 12/30/1502/16 Meenu Irving MD PCP - General Internal Medicine 02/17/19 Ashwini Lara MD PCP - General 05/20/15 12/29/15 documented as of this encounter
--- OUTSIDE RECORDS SUMMARY | 2024-08-05 11:22 | XMS_ITS | Encounter Summary ---
Author Organization [employer] Address [address] [facility] 7 [place] [address] Care Team Providers Care Energy Administrator Name Role Phone Rojas Cox MD Primary Care Prov ider Lexy Kendall MD Primary Care Provider [phone] Reason for Visit * Reason Onset Date Comments Nurse Triage 10/30/2023 Encounter Details Date Type Department Care Team ([facility] st Contact Info) Description 10/30/2023 Telephone [facility] MED & PEDS [address] [place], [place] [id number] Rojas Cox MD [address] [place] [address] Nurse Triage Social History Tobacco Use Types Packs/Day Years [...] AM EDT documented as of this encounter Miscellaneous Notes * Telephone Encounter - Autumn Guerrero RN - 11/01/2023 4:04 PM EDT Noted. Pt currently admitted at [facility]. * Telephone Encounter - Irma Amaral RN - 10/30/2023 9:14 AM EDT Call returned to Tommy Boyd to triage below. Spoke with daughter who is caregiver. Reports pt having hallucinations, difficulty with ambulation and cannot recall faces of children. Perdaughter pt has difficulty with walking but not able to stand at all for past 2 days. Hallucinationalso started in that time frame. No urinary sx per daughter. No recent TERI sx or fever. Daughter lucy sed of disposition, agrees to call EMS for transport to [facility] ER for immediate evaluation. Reviewed home care advise, ER precautions and reasons to call back. Sent to team for ER status check PRN. Protocol Used: Confusion - Delirium (Adult) Protocol-Based Disposition: Call EMS 911 Now Positive Triage Question: * Seeing or hearing or feeling things that are not there (i.e., auditory, visual, or tactile hallucinations) * All higher-acuity triage questions were negative * Telephone Encounter - Whit Kingsley - 10/30/2023 8:54 AM EDT Symptoms: Weakness, Confusion Outcome: Transfer to a nurse or provider NOW! Reason: This is the only possible outcome for these symptoms The caller accepted this outcome Please contact anisa (daughter) at [phone] documented in this encounter Plan of Treatment Upcoming Encounters Date Type Department Care Team ([facility] st Contact Info) Description 10/26/2024 9:00 AM EDT Office Visit [facility] MED & PEDS [address] [place] [address] Lexy Kendall MD [address] [place] [address] documented as of this encounter Visit Diagnoses Not on filedocumented in this encounter Additional Health Concerns Assessment Noted Time PHQ-9 Depression Total Score: 18 023 12:45 PM EDT documented as of this encounter Care Teams Energy Administrator Relationship Specialty Start Date End Date GarnerRojas Valdez MD [address] [place] [address] PCP - General Internal Medicine 03/09/19 02/11/24 Lexy Kendall MD [address] [place] [address] PCP - General Internal Medicine 02/12/24 documented as of this encounter
--- OUTSIDE RECORDS SUMMARY | 2024-08-05 11:22 | XMS_ITS | Encounter Summary ---
Author Organization [facility] Address [address] [place] [address] Care Team Providers Care On Line Csr Name Role Phone Ashwini Lara MD Primary Care Provider Un available Meenu Irving MD Primary Care Provider Unavail able Encounter Details Date Type Department Care Team Description 06/04/2016 Business Doc Medical Records [address] [place] [address] Abstract, Provider Social History Tobacco Use Types [...] on filedocumented in this encounter Care Teams On Line Csr Relationship Specialty Start Date End Date Ashwini Lara MD PCP - General Internal Medicine 12/30/1502/16 Meenu Irving MD PCP - General Internal Medicine 02/17/19 documented as of this encounter
--- OUTSIDE RECORDS SUMMARY | 2024-08-05 11:22 | XMS_ITS | Encounter Summary ---
Author Organization [facility] Address [address] [place] [address] Care Team Providers Care Industrial Chemistry Teacher Name Role Phone Meenu Irving MD Primary Care Provider Unavail able Encounter Details Date Type Department Care Team Description 02/02/2020 Cotton Opener Report Medical Records [address] [place] [address] Won Perez MD [address] [place] [address] [place] [address] Social History Tobacco Use Types Packs/Day Years [...] on filedocumented in this encounter Care Teams Industrial Chemistry Teacher Relationship Specialty Start Date End Date Meenu Irving MD PCP - General Internal Medicine 02/17/19 documented as of this encounter
--- OUTSIDE RECORDS SUMMARY | 2024-08-05 11:22 | XMS_ITS | Encounter Summary ---
Author Organization [facility] Address [address] [place] [address] Care Team Providers Care Housekeeper Supervisor Name Role Phone Meenu Irving MD Primary Care Provider Unavail able Encounter Details Date Type Department Care Team Description 06/10/2019 Release of Information Medical Records [address] [place] [address] Abstract, Provider Social History Tobacco Use Types [...] on filedocumented in this encounter Care Teams Housekeeper Supervisor Relationship Specialty Start Date End Date Meenu Irving MD PCP - General Internal Medicine 02/17/19 documented as of this encounter
--- OUTSIDE RECORDS SUMMARY | 2024-08-05 11:22 | XMS_ITS | Encounter Summary ---
Author Organization [facility] Address [address] [place] [address] Care Team Providers Care Prop Cutter Name Role Phone Meenu Irving MD Primary Care Provider Unavail able Encounter Details Date Type Department Care Team Description 07/05/2020 Hospital Medical Records [address] [place] [address] Social History Tobacco Use Types Packs/Day Years [...] Date/Time Associated Diagnosis Comments OUTSIDE EKG Routine 07/05/[address] Routine 07/05/2020 OUTSIDE PLAIN FILM Routine 07/05/2020 OUTSIDE LAB Routine 07/05/2020 documented in this encounter Results * OUTSIDE PLAIN FILM (07/05/2020) Provider Abstract RADIOLOGY * OUTSIDE CT (07/05/2020) Provider Abstract RADIOLOGY * OUTSIDE LAB (07/05/2020) Provider Abstract LAB * OUTSIDE EKG (07/05/2020) Provider Abstract CARDIOLOGY documented in this encounter Visit Diagnoses Not on filedocumented in this encounter Care Teams Prop Cutter Relationship Specialty Start Date End Date Meenu Irving MD PCP - General Internal Medicine 02/17/19 documented as of this encounter
--- OUTSIDE RECORDS SUMMARY | 2024-08-05 11:22 | XMS_ITS | Encounter Summary ---
Author Organization [employer] Address [address] [place] [address] 7 [place] [address] Care Team Providers Care Food And Nutrition Services Supervisor Name Role Phone Rojas Cox MD Primary Care Prov ider Lexy Kendall MD Primary Care Provider [phone] Encounter Details Date Type Department Care Team (Late st Contact Info) Description 09/18/2022 Orders Only [facility] MED & PEDS [address] [place] [address] Jaye Sommer LPN Social History Tobacco Use Types Packs/Day [...] Description 10/26/2024 9:00 AM EDT Office Visit [facility] MED & PEDS [address] [place] [address] Lexy Kendall MD [address] [place] [address] documented as of this encounter Visit Diagnoses Not on filedocumented in this encounter Additional Health Concerns Assessment Noted Time PHQ-9 Depression Total Score: 18 023 12:45 PM EDT documented as of this encounter Care Teams Food And Nutrition Services Supervisor Relationship Specialty Start Date End Date Garner Rojas Miller MD [address] [place] [address] PCP - General Internal Medicine 03/09/19 02/11/24 Lexy Kendall MD [address] [place] [address] PCP - General Internal Medicine 02/12/24 documented as of this encounter
--- OUTSIDE RECORDS SUMMARY | 2024-08-05 11:22 | XMS_ITS | Encounter Summary ---
Author Organization [facility] Address [address] [place] [address] Care Team Providers Care Tunneling Machine Operator Name Role Phone Ashwini Lara MD Primary Care Provider Un available Meenu Irving MD Primary Care Provider Unavail able Encounter Details Date Type Department Care Team Description 03/01/2016 Transfer Records Medical Records [address] [place] [address] Abstract, Provider Social History Tobacco Use Types [...] on filedocumented in this encounter Care Teams Tunneling Machine Operator Relationship Specialty Start Date End Date Ashwini Lara MD PCP - General Internal Medicine 12/30/1502/16 Meenu Irving MD PCP - General Internal Medicine 02/17/19 documented as of this encounter
--- OUTSIDE RECORDS SUMMARY | 2024-08-05 11:22 | XMS_ITS | Encounter Summary ---
Author Organization [facility] Address [address] [place] [address] Care Team Providers Care Dray Driver Name Role Phone Ashwini Lara MD Primary Care Provider Un available Meenu Irving MD Primary Care Provider Unavail able Ashwini Lara MD Primary Care Provider Un available Encounter Details Date Type Department Care Team Description 07/12/2015 Shaping Machine Tender Report Medical Records [address] [place] [address] Social History Tobacco Use Types Packs/Day Years [...] on filedocumented in this encounter Care Teams Dray Driver Relationship Specialty Start Date End Date Ashwini Lara MD PCP - General Internal Medicine 12/30/1502/16 Meenu Irving MD PCP - General Internal Medicine 02/17/19 Ashwini Lara MD PCP - General 05/20/15 12/29/15 documented as of this encounter
--- OUTSIDE RECORDS SUMMARY | 2024-08-05 11:22 | XMS_ITS | Encounter Summary ---
Author Organization [facility] Address [address] [place] [address] Care Team Providers Care Supervisor Electric Motor Testing Name Role Phone Meenu Irving MD Primary Care Provider Unavail able Encounter Details Date Type Department Care Team Description 04/19/2020 SCAN Medical Records [address] [place] [address] Shai Johnson MD Social History Tobacco Use Types Packs/Day [...] Name Priority Date/Time Associated Diagnosis Comments OUTSIDE MRI/MRA Routine 04/19/2020 documented in this encounter Results * OUTSIDE MRI/MRA (04/19/2020) Provider Abstract RADIOLOGY documented in this encounter Visit Diagnoses Not on filedocumented in this encounter Care Teams Supervisor Electric Motor Testing Relationship Specialty Start Date End Date Meenu Irving MD PCP - General Internal Medicine 02/17/19 documented as of this encounter
--- OUTSIDE RECORDS SUMMARY | 2024-08-05 11:22 | XMS_ITS | Encounter Summary ---
Author Organization [facility] Address [address] [place] [address] Care Team Providers Care Billiard Table Mechanic Name Role Phone Ashwini Lara MD Primary Care Provider Un available Meenu Irving MD Primary Care Provider Unavail able Encounter Details Date Type Department Care Team Description 11/25/2018 Manager Local Report Medical Records [address] [place] [address] Kate Beach PA-C Social History Tobacco Use Types Packs/Day Years [...] on filedocumented in this encounter Care Teams Billiard Table Mechanic Relationship Specialty Start Date End Date Ashwini Lara MD PCP - General Internal Medicine 12/30/1502/16 Meenu Irving MD PCP - General Internal Medicine 02/17/19 documented as of this encounter
--- OUTSIDE RECORDS SUMMARY | 2024-08-05 11:22 | XMS_ITS | Encounter Summary ---
Author Organization [employer] Address [address] [place] [address] 7 [place] [address] Care Team Providers Care Academic Records Specialist Name Role Phone Rojas Cox MD Primary Care Prov ider Lexy Kendall MD Primary Care Provider [phone] Encounter Details Date Type Department Care Team (Late st Contact Info) Description 07/27/2022 Orders Only [facility] MED & PEDS [address] [place] [address] Jordyn Soni LPN Social History Tobacco Use Types Packs/Day Years Used Date Smoking Tobacco: Never Assessed Sex and Gender Information Value Date Recorded Sex Assigned at Male 02/26/2022 10:36 AM EDT Legal Sex Male 10:36 AM EDT Gender Identity Male 02/26/2022 10:36 AM EDT Sexual Orientation Straight 02/26/2022 10 :36 AM EDT documented as of this encounter Plan of Treatment Upcoming Encounters Date Type Department Care Team (Late Contact Info) Description 10/26/2024 9:00 AM EDT Office Visit [facility] MED & PEDS [address] [place] [address] Lexy Kendall MD [address] [place] [address] documented as of this encounter Visit Diagnoses Not on filedocumented in this encounter Care Teams Academic Records Specialist Relationship Specialty Start Date End Date Rojas Cox MD [address] [place] [address] PCP - General Internal Medicine 03/09/19 02/11/24 Lexy Kendall MD [address] [place] [address] PCP - General Internal Medicine 02/12/24 documented as of this encounter
--- OUTSIDE RECORDS SUMMARY | 2024-08-05 11:22 | XMS_ITS | Clinical Summary ---
Author Organization [facility] Address [address] [place] [address] Care Team Providers Care Visual Journalist Name Role Phone Meenu Irving MD Primary Care Provider [phone] Surgical History Surgery Date Site/Laterality Comments OTHER SURGICAL HISTORY PROCEDURE: STENT, CORONARY, S660 COLONOSCOPY 12/26/12 PROCEDURE: HISTORICAL COLONOSCOPY; COMMENT: tics and inflammatory polyp. Repeat in ten yrs. CORONARY ARTERY BYPASS GRAFT 05/2015 PROCEDURE: HISTORICAL CABG Medical History Medical History Date Comments DM (diabetes mellitus) ([facility]) 09/01/2012 DX:DM (diabetes mellitus) ([facility]) Non-ST elevation NH (NSTEMI) ([facility]) 09/01/2012 DX:Non-ST elevation NH (NSTE NH) ([facility]) Presence of stent in coronary artery 09/01/2012 DX:Presence of stent in coronary artery CAD (coronary artery disease) 09/01/2012 DX :CAD (coronary artery disease) Vitamin D deficiency 09/01/2012 DX:Vitamin D deficiency Depression 09/01/2012 DX:Depression History of TIA (transient is chemic attack) 12/19/2016 DX:History of TIA (transient ischemic attack) CISCO on CPAP 02/18/2019 DX:CISCO on CPAP Family History Medical History Relation Name Comments Stomach cancer Grandparent Diabetes Mother Heart attack Sister Relation Name Status Comments Grandparent Mother Sister Social History Tobacco Use Types Packs/Day Years Used Date Smoking Tobacco: Former Smokeless Tobacco: Former Alcohol Use Standard Drinks/Week Comments No 0 (1 standard drink = 0.6 oz pur e alcohol) Sex and Gender Information Value Date Recorded Sex Assigned at Not on file Legal Sex Male 4:56 AM EST Gender Identity Not on file Sexual Orientation Not on file Obstetrics History Plan of Treatment Health Maintenance Due Date Last Done Comments Diabetes: Annual GFR (Glomerular Filtration Rate) 1948 Diabetes: Annual Foot Exam 1958 Diabetes: Annual Retina Eye Exam 1958 Zoster Vaccines (2 of 3) 05/12/2013 03/17/2013 DTaP,Tdap,and Td Vaccines (2 - Td or Tdap) 12/02/2022 12/02/2012 RSV Immunization Adult Patients (1 - 1-dose 75+ series) 2023 COVID-19 Vaccine (1 - 2023- season) 2023 Influenza Vaccine (#1) 2023 9, 03/18/2018, 01/09/2015, Additional history exists Cholesterol Screening (Lipid Panel) 01/22/2024 Depression Screening 01/22/2024 Diabetes: Annual Urine Albumin-Creatinine Ratio (uACR) 01/22/2024 Diabetes: Blood Sugar Control Test (HGBA1C) 01/22/2024 Falls Risk Assessment 01/22/2024 Hepatitis C Screening 01/22/2024 Hypertension/CHF/CAD Annual BMP Blood Test 01/22/2024 Social Influencers of Health Screening 01/22/2024 Pneumococcal Vaccine: 50+ Years Completed 05/31/2016, 06/05/2013 HIB Vaccines Aged Out No longer eligi ble based on patient's age to complete this topic HPV Vaccines Aged Out No longer eligi ble based on patient's age to complete this topic Hepatitis A Vaccines Aged Out No long er eligible based on patient's age to complete this topic Hepatitis B Vaccines Aged Out No long er eligible based on patient's age to complete this topic IPV Vaccines Aged Out No longer eligi ble based on patient's age to complete this topic MMR Vaccines Aged Out No longer eligi ble based on patient's age to complete this topic Meningococcal ACWY Vaccine Aged Out N o longer eligible based on patient's age to complete this topic Meningococcal B Vaccine Aged Out No l onger eligible based on patient's age to complete this topic RSV Immunization Patients Under 20 months Aged Out No longer eligible based on patient's age to complete this topic Varicella Vaccines Aged Out No longer eligible based on patient's age to complete this topic Care Teams Visual Journalist Relationship Specialty Start Date End Date Meenu Irving MD PCP - General Internal Medicine 02/17/19
--- OUTSIDE RECORDS SUMMARY | 2024-08-05 11:22 | XMS_ITS | Encounter Summary ---
Author Organization [employer] Address [address] [facility] 7t [place] [address] Care Team Providers Care Highway Engineering Teacher Name Role Phone Lexy Kendall MD Primary Care Provider [phone] Encounter Details Date Type Department Care Team (Late st Contact Info) Description 03/30/2024 Orders Only [facility] MED & PEDS [address] [place] [address] Provider, MD Katie Social History Tobacco Use Types Packs/Day Years [...] Description 10/26/2024 9:00 AM EDT Office Visit [facility] MED & PEDS [address] [place] [address] Lexy Kendall MD [address] [place] [address] documented as of this encounter Procedures Procedure Name Priority Date/Time Associated Diagnosis Comments DIABETES EYE EXAM Routine 02/20/2024 3:45 PM EDT documented in this encounter Results * Hm Diabetes Eye Exam (02/20/2024 3:45 PM EDT) Historical Provider HEALTH MAINTENANCE Final Result documented in this encounter Visit Diagnoses Not on filedocumented in this encounter Additional Health Concerns Assessment Noted Time PHQ-9 Depression Total Score: 18 0518/2 023 12:45 PM EDT documented as of this encounter Care Teams Highway Engineering Teacher Relationship Specialty Start Date End Date Lexy Kendall MD [address] [place] [address] PCP - General Internal Medicine 02/12/24 documented as of this encounter
--- OUTSIDE RECORDS SUMMARY | 2024-08-05 11:22 | XMS_ITS | Encounter Summary ---
Author Organization [facility] Address [address] [place] [address] Care Team Providers Care Patent Prosecution Paralegal Name Role Phone Ashwini Lara MD Primary Care Provider Un available Meenu Irving MD Primary Care Provider Unavail able Ashwini Lara MD Primary Care Provider Un available Encounter Details Date Type Department Care Team Description 06/15/2015 [facility] Medical Records [address] [place] [address] [place], Sotirsunita Social History Tobacco Use Types Packs/Day Years [...] on filedocumented in this encounter Care Teams Patent Prosecution Paralegal Relationship Specialty Start Date End Date Ashwini Lara MD PCP - General Internal Medicine 12/30/1502/16 Meenu Irving MD PCP - General Internal Medicine 02/17/19 Ashwini Lara MD PCP - General 05/20/15 12/29/15 documented as of this encounter
[2024-08-05 18:47] LABS: Anion Gap 11 (12-20); Blood Urea Nitrogen 9 mg/dL (9-16); Carbon Dioxide 25 mmol/L (22-29); Chloride 110 mmol/L (96-108); Estimated Glomerular Filt Rate 49; Potassium 3.9 mmol/L (3.3-5.1); Sodium 142 mmol/L (135-145)
== END 2024-08-05 10:08 | disposition home or self-care (01) ==
LOC: HO.HKASLDS 10:07
PROVIDERS: Visit Provider Internal Medicine Nephrology
DX: N18.31 Chronic kidney disease, stage 3a (principal); I10 Essential (primary) hypertension
CPT/HCPCS: 36415; 80051; 82565; 84520

== ENCOUNTER 2024-08-06 08:55 | Outpatient (REF) | payer OTHER, SELFPAY ==
--- OUTSIDE RECORDS SUMMARY | 2024-08-06 09:30 | XMS_ITS | Encounter Summary ---
Author Organization [employer] Address [address] [place] [address] 7 [place] [address] Care Team Providers Care Generator Operator Straight Bevel Gear Name Role Phone Rojas Cox MD Primary Care Prov ider Lexy Kendall MD Primary Care Provider [phone] Encounter Details Date Type Department Care Team (Late st Contact Info) Description 09/18/2022 Orders Only [facility] MED & PEDS [address] [place] [address] Jaye Sommer LPN Social History Tobacco Use [...] Description 10/26/2024 9:00 AM EDT Office Visit [facility] MED & PEDS [address] [place] [address] Lexy Kendall MD [address] [place] [address] documented as of this encounter Visit Diagnoses Not on filedocumented in this encounter Additional Health Concerns Assessment Noted Time PHQ-9 Depression Total Score: 18 023 12:45 PM EDT documented as of this encounter Care Teams Generator Operator Straight Bevel Gear Relationship Specialty Start Date End Date Garner Rojas Miller MD [address] [place] [address] PCP - General Internal Medicine 03/09/19 02/11/24 Lexy Kendall MD [address] [place] [address] PCP - General Internal Medicine 02/12/24 documented as of this encounter
--- OUTSIDE RECORDS SUMMARY | 2024-08-06 09:30 | XMS_ITS | Encounter Summary ---
Author Organization [facility] Address [address] [place] [address] Care Team Providers Care [employer] Principal Name Role Phone Meenu Irving MD Primary Care Provider Unavail able Encounter Details Date Type Department Care Team Description 05/31/2020 Hospital Medical Records [address] [place] [address] Social History Tobacco Use Types Packs/Day Years [...] on filedocumented in this encounter Care Teams [employer] Principal Relationship Specialty Start Date End Date Meenu Irving MD PCP - General Internal Medicine 02/17/19 documented as of this encounter
--- OUTSIDE RECORDS SUMMARY | 2024-08-06 09:30 | XMS_ITS | Encounter Summary ---
Author Organization [facility] Address [address] [place] [address] Care Team Providers Care Cancer Registry Manager Name Role Phone Ashwini Lara MD Primary Care Provider Un available Meenu Irving MD Primary Care Provider Unavail able Ashwini Lara MD Primary Care Provider Un available Encounter Details Date Type Department Care Team Description 10/03/2015 Business Doc Medical Records [address] [place] [address] Abstract, Provider Social History Tobacco Use Types [...] on filedocumented in this encounter Care Teams Cancer Registry Manager Relationship Specialty Start Date End Date Ashwini Lara MD PCP - General Internal Medicine 12/30/1502/16 Meenu Irving MD PCP - General Internal Medicine 02/17/19 Ashwini Lara MD PCP - General 05/20/15 12/29/15 documented as of this encounter
--- OUTSIDE RECORDS SUMMARY | 2024-08-06 09:30 | XMS_ITS | Encounter Summary ---
Author Organization [facility] Address [address] [place] [address] Care Team Providers Care Certified Athletic Trainer Name Role Phone Ashwini Lara MD Primary Care Provider Un available Meenu Irving MD Primary Care Provider Unavail able Ashwini Lara MD Primary Care Provider Un available Encounter Details Date Type Department Care Team Description 06/24/2015 [facility] Medical Records [address] [place] [address] Social History Tobacco Use Types Packs/Day Years [...] on filedocumented in this encounter Care Teams Certified Athletic Trainer Relationship Specialty Start Date End Date Ashwini Lara MD PCP - General Internal Medicine 12/30/1502/16 Meenu Irving MD PCP - General Internal Medicine 02/17/19 Ashwini Lara MD PCP - General 05/20/15 12/29/15 documented as of this encounter
--- OUTSIDE RECORDS SUMMARY | 2024-08-06 09:30 | XMS_ITS | Encounter Summary ---
Author Organization [employer] Address [address] [facility] 7 [place] [address] Care Team Providers Care Harvester Operator Name Role Phone Rojas Cox MD Primary Care Prov ider Lexy Kendall MD Primary Care Provider [phone] Reason for Visit * Reason Onset Date Comments Nurse Triage 10/30/2023 Encounter Details Date Type Department Care Team ([facility] st Contact Info) Description 10/30/2023 Telephone [facility] [address] [place], [place] [phone] Rojas Cox MD [address] [place] [address] Nurse Triage Social History Tobacco Use Types [...] PM EDT Noted. Pt currently admitted at [facility]. * Telephone Encounter - Irma Amaral RN [...] agrees to call EMS for transport to [facility] ER for immediate evaluation. Reviewed home care [...] this outcome Please contact anisa (daughter) at [phone] documented in this encounter Plan of Treatment Upcoming Encounters Date Type Department Care Team ([facility] st Contact Info) Description 10/26/2024 9:00 AM EDT Office Visit [facility] [address] [place] [address] Lexy Kendall MD [address] [place] [address] documented as of this encounter Visit Diagnoses Not on filedocumented in this encounter Additional Health Concerns Assessment Noted Time PHQ-9 Depression Total Score: 18 023 12:45 PM EDT documented as of this encounter Care Teams Harvester Operator Relationship Specialty Start Date End Date GarnerRojas Valdez MD [address] [place] [address] PCP - General Internal Medicine 03/09/19 02/11/24 Lexy Kendall MD [address] [place] [address] PCP - General Internal Medicine 02/12/24 documented as of this encounter
--- OUTSIDE RECORDS SUMMARY | 2024-08-06 09:30 | XMS_ITS | Encounter Summary ---
Author Organization [facility] Address [address] [place] [address] Care Team Providers Care Bsa/Aml Compliance Officer Name Role Phone Meenu Irving MD Primary Care Provider Unavail able Encounter Details Date Type Department Care Team Description 04/19/2020 [facility] Medical Records [address] [place] [address] Shai Johnson MD Social History Tobacco Use [...] on filedocumented in this encounter Care Teams Bsa/Aml Compliance Officer Relationship Specialty Start Date End Date Meenu Irving MD PCP - General Internal Medicine 02/17/19 documented as of this encounter
--- OUTSIDE RECORDS SUMMARY | 2024-08-06 09:30 | XMS_ITS | Encounter Summary ---
Author Organization [facility] Address [address] [place] [address] Care Team Providers Care Sleeve Setter Lockstitch Name Role Phone Ashwini Lara MD Primary Care Provider Un available Meenu Irving MD Primary Care Provider Unavail able Ashwini Lara MD Primary Care Provider Un available Encounter Details Date Type Department Care Team Description 06/15/2015 [facility] Medical Records [address] [place] [address] Stamou, Sotirsunita Social History Tobacco Use Types [...] on filedocumented in this encounter Care Teams Sleeve Setter Lockstitch Relationship Specialty Start Date End Date Ashwini Lara MD PCP - General Internal Medicine 12/30/1502/16 Meenu Irving MD PCP - General Internal Medicine 02/17/19 Ashwini Lara MD PCP - General 05/20/15 12/29/15 documented as of this encounter
--- OUTSIDE RECORDS SUMMARY | 2024-08-06 09:30 | XMS_ITS | Encounter Summary ---
Author Organization [facility] Address [address] [place] [address] Care Team Providers Care Cable Driller Name Role Phone Ashwini Lara MD Primary Care Provider Un available Meenu Irving MD Primary Care Provider Unavail able Encounter Details Date Type Department Care Team Description 10/12/2016 Home Health Aid Report Medical Records [address] [place] [address] Aria Bradford MD Social History Tobacco Use [...] on filedocumented in this encounter Care Teams Cable Driller Relationship Specialty Start Date End Date Ashwini Lara MD PCP - General Internal Medicine 12/30/1502/16 Meenu Irving MD PCP - General Internal Medicine 02/17/19 documented as of this encounter
--- OUTSIDE RECORDS SUMMARY | 2024-08-06 09:30 | XMS_ITS | Encounter Summary ---
Author Organization [facility] Address [address] [place] [address] Care Team Providers Care Motorcycle Assembler Name Role Phone Name, Angelito WILLSON Primary Care Provider UnavailAshwini Montoya MD Primary Care Provider Un available Meenu Irving MD Primary Care Provider Unavail able Ashwini Lara MD Primary Care Provider Un available Encounter Details Date Type Department Care Team Description 07/22/2014 Asphalt Still Operator Report Medical Records [address] [place] [address] Bimal Liao MD Social History Tobacco Use [...] on filedocumented in this encounter Care Teams Motorcycle Assembler Relationship Specialty Start Date End Date Name, MD Angelito PCP - General Internal Medicine 07/18/12 05/19/15 Ashwini Lara MD PCP - General Internal Medicine 12/30/1502/16 Meenu Irving MD PCP - General Internal Medicine 02/17/19 Ashwini Lara MD PCP - General 05/20/15 12/29/15 documented as of this encounter
--- OUTSIDE RECORDS SUMMARY | 2024-08-06 09:30 | XMS_ITS | Encounter Summary ---
Author Organization [facility] Address [address] [place] [address] Care Team Providers Care Vp Global Marketing Solutions Name Role Phone Ashwini Lara MD Primary Care Provider Un available Meenu Irving MD Primary Care Provider Unavail able Encounter Details Date Type Department Care Team Description 11/25/2018 Dry Color Mixer Report Medical Records [address] [place] [address] Kate Beach PA-C Social History Tobacco Use [...] on filedocumented in this encounter Care Teams Vp Global Marketing Solutions Relationship Specialty Start Date End Date Ashwini Lara MD PCP - General Internal Medicine 12/30/1502/16 Meenu Irving MD PCP - General Internal Medicine 02/17/19 documented as of this encounter
--- OUTSIDE RECORDS SUMMARY | 2024-08-06 09:30 | XMS_ITS | Encounter Summary ---
Author Organization [facility] Address [address] [place] [address] Care Team Providers Care Scientific Manager Name Role Phone Ashwini Lara MD Primary Care Provider Un available Meenu Irving MD Primary Care Provider Unavail able Encounter Details Date Type Department Care Team Description 07/09/2016 [facility] Medical Records [address] [place] [address] Abstract, Provider Social History Tobacco Use Types [...] on filedocumented in this encounter Care Teams Scientific Manager Relationship Specialty Start Date End Date Ashwini Lara MD PCP - General Internal Medicine 12/30/1502/16 Meenu Irving MD PCP - General Internal Medicine 02/17/19 documented as of this encounter
--- OUTSIDE RECORDS SUMMARY | 2024-08-06 09:30 | XMS_ITS | Encounter Summary ---
Author Organization [facility] Address [address] [place] [address] Care Team Providers Care Farmworkers Name Role Phone Name, Angelito WILLSON Primary Care Provider Unavailabl e Ashwini Lara MD Primary Care Provider Un available Meenu Irving MD Primary Care Provider Unavail able Ashwini Lara MD Primary Care Provider Un available Encounter Details Date Type Department Care Team Description 12/25/2012 Transfer Records Medical Records [address] [place] [address] Abstract, Provider Social History Tobacco Use Types Packs/Day Years Used Date Smoking Tobacco: Former Comments:quit over 40 yrs ag o Alcohol Use Standard Drinks/Week Comments No 0 (1 standard drink = 0.6 oz pur e alcohol) Sex Assigned at Date Recorded Not on file documented as of this encounter Plan of Treatment Not on file documented as of this encounter Visit Diagnoses Not on filedocumented in this encounter Care Teams Farmworkers Relationship Specialty Start Date End Date Name, MD Angelito PCP - General Internal Medicine 07/18/12 05/19/15 Ashwini Lara MD PCP - General Internal Medicine 12/30/1502/16 Meenu Irving MD PCP - General Internal Medicine 02/17/19 Ashwini Lara MD PCP - General 05/20/15 12/29/15 documented as of this encounter
--- OUTSIDE RECORDS SUMMARY | 2024-08-06 09:30 | XMS_ITS | Clinical Summary ---
Author Organization [facility] [employer] [facility] Address [address] [place] [address] Care Team Providers Care Clay Products Glazer Name Role Phone Meenu Irving MD Primary Care Provider Surgical History Surgery Date Site/Laterality Comments OTHER SURGICAL HISTORY PROCEDURE: STENT, CORONARY, S660 COLONOSCOPY 12/26/12 PROCEDURE: HISTORICAL COLONOSCOPY; COMMENT: tics and inflammatory polyp. Repeat in ten yrs. CORONARY ARTERY BYPASS GRAFT 05/2015 PROCEDURE: HISTORICAL CABG Medical History Medical History Date Comments DM (diabetes mellitus) ([facility]/ [facility] V24, [facility] V28) 09/01/2012 DX:DM (diabetes mellitus) ( CC) Non-ST elevation IA (NSTEMI) ([facility] V24, [facility] V28) 09/01/2012 DX:Non-ST elevation IA (NSTE IA) ([facility]) Presence of stent in coronary artery 09/01/2012 [...] 2023 COVID-19 Vaccine ( - season) 2023 Influenza Vaccine (#1) 2023 9, [...] age to complete this topic Care Teams Clay Products Glazer Relationship Specialty Start Date End Date Meenu Irving MD PCP - General Internal Medicine 02/17/19
--- OUTSIDE RECORDS SUMMARY | 2024-08-06 09:30 | XMS_ITS | Encounter Summary ---
Author Organization [employer] Address [address] [facility] 7t [place] [address] Care Team Providers Care Roading Engineer Name Role Phone Lexy Kendall MD Primary Care Provider [phone] Encounter Details Date Type Department Care Team (Late st Contact Info) Description 03/30/2024 Orders Only [facility] MED & PEDS [address] [place] [address] Provider, MD Katie Social History Tobacco Use [...] 10/26/2024 9:00 AM EDT Office Visit [facility] [address] [place] [address] Lexy Kendall MD [address] [place] [address] documented as of this encounter Procedures Procedure [...] documented as of this encounter Care Teams Roading Engineer Relationship Specialty Start Date End Date Lexy Kendall MD [address] [place] [address] PCP - General Internal Medicine 02/12/24 documented as of this encounter
--- OUTSIDE RECORDS SUMMARY | 2024-08-06 09:30 | XMS_ITS | Clinical Summary ---
Author Organization [facility] Address [address] [place] [address] Care Team Providers Care Axle Bearing Polisher Name Role Phone Meenu Irving MD Primary Care Provider Unavail able Allergies No known active allergies Medications Medication Sig Dispensed Refills Start Date End Date Status nitroGLYCERIN (NITROSTAT) 0.4 MG SL tabletIndications:Old myocardial infarction,Coronary artery disease involving coronary bypass graft of sokaogon heart without angina pectoris Place 1 Tab under the tongue every 5 minutes as needed for Chest pain. 1 Bottle 1 07/08/2017 Active atorvastatin (LIPITOR) 80 MG tablet Take 1 Tab by mouth daily. 30 Tab 5 09/30/2018 Active aspirin 81 MG EC tablet Take 1 Tab by mouth daily. 30 Tab 5 09/30/2018 Active levothyroxine (SYNTHROID, LEVOTHROID) 75 MCG tablet Take 1 Tab by mouth daily. 30 Tab 5 04/09/2019 Active citalopram (CELEXA) 20 MG tablet TAKE 1 TAB BY MOUTH DAILY. 30 Tab 2 04/15/2019 Active clopidogrel (PLAVIX) 75 MG tablet Take 1 Tab by mouth daily. 30 Tab 5 04/15/2019 Active metoprolol (TOPROL-XL) 25 MG 24 hr tablet TAKE 1 TABLET BY MOUTH EVERY DAY 7 Tab 0 05/26/2019 Active furosemide (LASIX) 20 MG tablet TAKE 1 TABLET BY MOUTH EVERY DAY 7 Tab 0 05/26/2019 Active amlodipine (NORVASC) 5 MG tablet TAKE 1 TABLET BY MOUTH EVERY DAY 7 Tab 0 05/26/2019 Active Active Problems Patient Care Coordination No te Formatting of this note is d ifferent from the original. Checking Your Blood Sugars Please check your blood sugars every day. Please check your sugars at the following times of day: once a day Your Blood Sugar Goals Pre Meal: 90-130 2 hours after meals: 110-160 Bedtime: 110-150 Use the Results ?? Bring your glucometer to every appointment ?? Write your fingerstick blood sugars down on a log sheet or record book. Bring them to your appointment ?? Look for patterns in the numbers. The results help you and your provider make decisions about your diabetes treatment plan. Your Results and your Goals Your Result / Date of Completion Your Goal / How Often to Assess Component Value Date HGBA1C 6.0 01/07/2014 Less than 7%--- 2-4 times per year BP Readings from Last 1 Encounters: 04/15/14 100/70 Less than 130/80--- once per year Component Value Date LDL 129 08/31/2013 LDL less than 100--- once per year Component Value Date MALBUR 20.7 08/31/2013 Less than 30--- once per year Wt Readings from Last 1 Encounters: 04/15/14 176 lb 8 oz (80.06 kg) Your goal weight by next visit: 171 --- reassess 2-4 times a year Health Maintenance Due Topic Date Due ? ? Depression Screen 1962 ? ? Fall Risk Assessment 2013 ? ? Diabetes: Annual Foot Exam 09/01/2013 ? ? Diabetes: Annual Care Plan 09/01/2013 ? ? Flu Shot 12/28/2013 ? ? Diabetes: Annual Eye Exam 03/23/2014 Your Action Plan Check blood glucose as directed and write down all results. Review blood pressure medications Make appointment to see your eye doctor Check feet for sores every day Continue to work on weight loss with a goal of losing 2-4 pounds per month Avoid walking in bare or stocking feet due to the numbness in your feet Increase physical activity Contact me if you experience any barriers to care such as inability to purchase your medication, difficulty getting to your appointments or difficulty understanding your care plan Avoid alcohol Please get your pneumonia shot Please get your yearly flu shot When to Call your Healthcare Provider If your blood sugar falls below 70 and you do not know why or you become unconscious If you are sick and unable to take liquids because or nausea or vomiting If you have a fever over 101 If your blood sugar is 300 or higher on greater than 3 separate occasions during the same week If you are just unsure what to do Educational Resources [place] Diabetes Association (www.diabetes.org) Centers for Disease Control and Prevention (www.cdc.gov/diabetes) This care plan was created in collaboration with Tommy Camp on 04/15/2014 Problem Noted Date Acquired complex renal cyst 03/12/2019 CISCO on CPAP 02/18/2019 History of TIA (transient ischemic attac k) 12/19/2016 Essential hypertension 10/12/2016 CKD (chronic kidney disease) stage 3, GF R 30-59 ml/min 09/04/2013 Old myocardial infarction 09/04/2013 Overview: NSTEMI 2007 Type II or unspecified type diabetes mellitus with ophthalmic manifestations, not stated as uncontrolled 09/04/2013 Overview: Cataract noted on outside eye exam 03/23/13 Dr. Xander Saucedo Type II or unspecified type diabetes mellitus with renal manifestations, not stated as uncontrolled 09/04/2013 Overview: CKD Hyperlipidemia LDL goal < 70 03/05/2013 Overview: IMO update Hypothyroidism 12/03/2012 Presence of stent in coronary artery 09/2012 CAD (coronary artery disease) 09/01/2012 Vitamin D deficiency 09/01/2012 Depression 09/01/2012 Resolved Problems Problem Noted Date Resolved Date DM (diabetes mellitus) 09/01/2012 02//201 7 Overview: Diet controlled Non-ST elevation PR (NSTEMI) 09/01/201206/2016 Overview: Back in 2007 Immunizations Name Administration Dates Next Due Influenza (> 6 Months) 01/09/2015,03/05/2013 Influenza Flu (PT Reported) 03/16/2014 Influenza Vaccine-preservati ve Free-quadrivalent 4 Years 03/18/2018 Influenza vaccine high dose age 65 and over 12/29 Pneumoccoccal(Adult) Polysaccharide PPSV23 06/05 Pneumococcal Conjugate PCV-13 05/31/2016 Tdap 12/02/2012 Zostavax 03/17/2013 Family History Medical History Relation Name Comments CA Stomach Grandparent Diabetes Mother PR Sister Relation Name Status Comments Grandparent Mother Sister Social History Tobacco Use Types Packs/Day Years Used Date Smoking Tobacco: Former Smokeless Tobacco: Former Comments:quit over 40 yrs ag o Alcohol Use Standard Drinks/Week Comments No 0 (1 standard drink = 0.6 oz pur e alcohol) Sex Assigned at Date Recorded Not on file Last Filed Vital Signs Vital Sign Reading Time Taken Comments Blood Pressure 128/78 03/12/2019 9:51 AM EST Pulse 78 03/12/2019 9:51 AM EST Temperature 36.6 ??C (97.9 ??F) 01/16/2019 9:08 AM ED T Respiratory Rate 16 01/16/2019 9:08 AM EDT Oxygen Saturation 97% 12/26/2012 11:57 AM EDT Inhaled Oxygen Concentration - - Weight 84.6 kg (186 lb 6.4 oz) 03/12/2019 9:51 A M EST Height 162.6 cm (5' 4 ) 01/16/2019 9:08 AM EDT Body Mass Index 32 01/16/2019 9:08 AM EDT Plan of Treatment Health Maintenance Due Date Last Done Comments Covid-19 Vaccine (#1) 1950 SHINGLES VACCINE (2 of 3) 05/12/2013 03/17/2013 DIABETES: ANNUAL FOOT EXAM 07/23/201807/23, 05/31/2016, 09/01/2012 FALL RISK ASSESSMENT 11/06/2018 11/06/2017, 07/16/2016, 12/30/2015 DEPRESSION SCREEN 03/18/2019 03/18/2018, , 05/31/2016 DIABETES: ANNUAL EYE EXAM 08/28/20192018 (Completed), 09/13/2017, 02/23/2016 (External Completion), Additional history exists DIABETES: BLOOD SUGAR CONTRO L TEST (HGBA1C) 09/02/2019 06/04/2019, 01/02/2019, 09/30/2018, Additional history exists DIABETES/HEART DISEASE: SKY RAZA CHOLESTEROL (LDL) 01/03/2020 01/02/2019, 03/18/2018, 12/19/2016, Additional history exists DIABETES: ANNUAL URINE PROTE IN TEST (MICROALBUMIN) 06/04/2020 06/04/2019, 01/02/2019, 02/20/2018, Additional history exists DTAP/TDAP/TD (2 - Td or Tdap) 12/02/2022 12/02/2012 BMI CHECK/ADVISE 04/29/2024 01/16/2019, , 05/23/2018, Additional history exists INFLUENZA (Season Ended) 2024 019, 03/18/2018, 03/04/2017, Additional history exists HEPATITIS C SCREENING Completed 09/01/2012 PNEUMOCOCCAL VACCINE Completed 05/31/2016, 06/05/19 14 Care Teams Axle Bearing Polisher Relationship Specialty Start Date End Date Meenu Irving MD PCP - General Internal Medicine 02/17/19
--- OUTSIDE RECORDS SUMMARY | 2024-08-06 09:30 | XMS_ITS | Encounter Summary ---
Author Organization [employer] Address [address] [place] [address] [address] [place] [address] Care Team Providers Care Railroad Firer Name Role Phone Rojas Cox MD Primary Care Prov ider Lexy Kendall MD Primary Care Provider [phone] Encounter Details Date Type Department Care Team (Late st Contact Info) Description 07/27/2022 Orders Only [facility] MED & PEDS [address] [place] [address] Jordyn Soni LPN Social History Tobacco Use [...] Description 10/26/2024 9:00 AM EDT Office Visit [facility] MED [facility] PEDS [address] [place] [address] Lexy Kendall MD [address] [place] [address] documented as of this encounter Visit Diagnoses Not on filedocumented in this encounter Care Teams Railroad Firer Relationship Specialty Start Date End Date Rojas Cox MD [address] [place] [address] PCP - General Internal Medicine 03/09/19 02/11/24 Lexy Kendall MD [address] [place] [address] PCP - General Internal Medicine 02/12/24 documented as of this encounter
--- OUTSIDE RECORDS SUMMARY | 2024-08-06 09:30 | XMS_ITS | Encounter Summary ---
Author Organization [facility] Address [address] [place] [address] Care Team Providers Care Seconds Handler Name Role Phone Meenu Irving MD Primary Care Provider Unavail able Encounter Details Date Type Department Care Team Description 06/10/2019 Release of Information Medical Records [address] [place] [address] Abstract, Provider Social History Tobacco Use Types [...] on filedocumented in this encounter Care Teams Seconds Handler Relationship Specialty Start Date End Date Meenu Irving MD PCP - General Internal Medicine 02/17/19 documented as of this encounter
--- OUTSIDE RECORDS SUMMARY | 2024-08-06 09:30 | XMS_ITS | Encounter Summary ---
Author Organization [employer] Address [address] [facility] [address]t [place] [address] Care Team Providers Care Product Specialist Name Role Phone Rojas Cox MD Primary Care Prov ider Lexy Kendall MD Primary Care Provider [phone] Reason for Visit * Reason Comments Med Refill Encounter Details Date Type Department Care Team ([facility] st Contact Info) Description 10/13/2023 Refill [facility] MED & PEDS [address] [place], [place] [phone] Irasema Meek MD [address] [place] [address] Social History Tobacco Use Types Packs/Day Years [...] 10/26/2024 9:00 AM EDT Office Visit [facility] MED & PEDS [address] [place] [address] Lexy Knedall MD [address] [place] [address] documented as of this encounter Visit Diagnoses Not on filedocumented in this encounter Additional Health Concerns Assessment Noted Time PHQ-9 Depression Total Score: 18 023 12:45 PM EDT documented as of this encounter Care Teams Product Specialist Relationship Specialty Start Date End Date Rojas Cox MD [address] [place] [address] PCP - General Internal Medicine 03/09/19 02/11/24 Lexy Kendall MD [address] [place] [address] PCP - General Internal Medicine 02/12/24 documented as of this encounter
--- OUTSIDE RECORDS SUMMARY | 2024-08-06 09:30 | XMS_ITS | Encounter Summary ---
Author Organization [facility] Address [address] [place] [address] Care Team Providers Care Plate Maker Zinc Name Role Phone Angelito Aguirre MD Primary Care Provider UnavailAshwini Montoya MD Primary Care Provider Un available Meenu Irving MD Primary Care Provider Unavail able Ashwini Lara MD Primary Care Provider Un available Reason for Visit * Reason Onset Date Comments Call-returning From Provider 04/30/2014 Encounter Details Date Type Department Care Team Description 04/30/2014 Telephone Adult [address] [address] Angelito Aguirre MD Call-returning From Provider Social History Tobacco Use Types Packs/Day Years Used Date Smoking Tobacco: Former Smokeless Tobacco: Former Comments:quit over 40 yrs ag o Alcohol Use Standard Drinks/Week Comments No 0 (1 standard drink = 0.6 oz pur e alcohol) Sex Assigned at Date Recorded Not on file documented as of this encounter Miscellaneous Notes * Telephone Encounter - Angelito Aguirre MD - 04/30/2014 5:03 PM EST Please call the patient. I recommend to double his dose of pravastatin and if he agrees I will sendthe new dose to his pharmacy * Telephone Encounter - Cherelle Cabrera - 04/30/2014 10:25 AM EST Patients son (Tommy) returning Rohini call please call back. [phone]. documented in this encounter Plan of Treatment Not on file documented as of this encounter Visit Diagnoses Not on filedocumented in this encounter Care Teams Plate Maker Zinc Relationship Specialty Start Date End Date Name, MD Angelito PCP - General Internal Medicine 07/18/12 05/19/15 Ashwini Lara MD PCP - General Internal Medicine 12/30/1502/16 Meenu Irving MD PCP - General Internal Medicine 02/17/19 Ashwini Lara MD PCP - General 05/20/15 12/29/15 documented as of this encounter
--- OUTSIDE RECORDS SUMMARY | 2024-08-06 09:30 | XMS_ITS | Encounter Summary ---
Author Organization [facility] Address [address] [place] [address] Care Team Providers Care Composite Science Teacher Name Role Phone Name, Angelito WILLSON Primary Care Provider UnavailAshwini Montoya MD Primary Care Provider Un available Meenu Irving MD Primary Care Provider Unavail able Ashwini Lara MD Primary Care Provider Un available Encounter Details Date Type Department Care Team Description 03/29/2015 Tutoring Clinician Report Medical Records [address] [place] [address] Bimal Liao MD Social History Tobacco Use [...] on filedocumented in this encounter Care Teams Composite Science Teacher Relationship Specialty Start Date End Date Name, MD Angelito PCP - General Internal Medicine 07/18/12 05/19/15 Ahswini Lara MD PCP - General Internal Medicine 12/30/1502/16 Meenu Irving MD PCP - General Internal Medicine 02/17/19 Ashwini Lara MD PCP - General 05/20/15 12/29/15 documented as of this encounter
--- OUTSIDE RECORDS SUMMARY | 2024-08-06 09:30 | XMS_ITS | Encounter Summary ---
Author Organization [facility] Address [address] [place] [address] Care Team Providers Care Client Delivery Manager Name Role Phone Name, Angelito WILLSON Primary Care Provider Unavailabl e Ashwini Lara MD Primary Care Provider Un available Meenu Irving MD Primary Care Provider Unavail able Ashwini Lara MD Primary Care Provider Un available Encounter Details Date Type Department Care Team Description 09/03/2012 Release of Information Medical Records [address] [place] [address] Abstract, Provider Social History Tobacco Use Types [...] on filedocumented in this encounter Care Teams Client Delivery Manager Relationship Specialty Start Date End Date Name, MD Angelito PCP - General Internal Medicine 07/18/12 05/19/15 Ashwini Lara MD PCP - General Internal Medicine 12/30/1502/16 Meenu Irving MD PCP - General Internal Medicine 02/17/19 Ashwini Lara MD PCP - General 05/20/15 12/29/15 documented as of this encounter
--- OUTSIDE RECORDS SUMMARY | 2024-08-06 09:30 | XMS_ITS | Encounter Summary ---
Author Organization [facility] Address [address] [place] [address] Care Team Providers Care Senior Talent Acquisition Specialist Name Role Phone Ashwini Lara MD Primary Care Provider Un available Meenu Irving MD Primary Care Provider Unavail able Reason for Visit * Reason Onset Date Comments Faxed Refill 04/25/2018 Encounter Details Date Type Department Care Team Description 04/25/2018 Refill Adult Medicine [address] [address] Ashwini Lara MD Faxed Refill Social History Tobacco Use Types Packs/Day Years Used Date Smoking Tobacco: Former Smokeless Tobacco: Former Comments:quit over 40 yrs ag o Alcohol Use Standard Drinks/Week Comments No 0 (1 standard drink = 0.6 oz pur e alcohol) Sex Assigned at Date Recorded Not on file documented as of this encounter Miscellaneous Notes * Telephone Encounter - Ligia Ortega M.A. - 04/25/2018 12:48 PM EST Last office visit 03/28/18 Next office visit 07/24/18 This was tapering dose for gout. Pt was seen by Yulia Wolfe PA-C Will you refill? * Telephone Encounter - Winter Pierce - 04/25/2018 12:07 PM EST Patient would like script to be: E-PRESCRIBED/FAXED TO PHARMACY ?? WHEN WAS THE PATIENT'S LAST APPOINTMENT IN ADULT MEDICINE? 03-28-18 ?? WHEN WAS THE LAST TIME THE PATIENT SAW THEIR PCP? 03-18-18 ?? Does patient have an upcoming appointment? Yes 04-23-18 ?? (THE MEDICATION REQUESTED IS ON THE MED LIST ABOVE) One or some of the medications requested were on the HISTORICAL MED list ?? Did you check the Pharmacy information above?: YES ?? Patient wants: 30 -day supply ?? Is this a mail order prescription request ? NO ?? If the refill is from a FAXED refill request what is the RX # listed on the fax? N/A ?? Patients current insurance carrier is: [place] / [place] / Product Type: MEDICARE [id number] ?? documented in this encounter Plan of Treatment Not on file documented as of this encounter Visit Diagnoses Not on filedocumented in this encounter Care Teams Senior Talent Acquisition Specialist Relationship Specialty Start Date End Date Ashwini Lara MD PCP - General Internal Medicine 12/30/1502/16 Meenu Irving MD PCP - General Internal Medicine 02/17/19 documented as of this encounter
--- OUTSIDE RECORDS SUMMARY | 2024-08-06 09:30 | XMS_ITS | Encounter Summary ---
Author Organization [facility] Address [address] [place] [address] Care Team Providers Care Television Actor Name Role Phone Ashwini Lara MD Primary Care Provider Un available Meenu Irving MD Primary Care Provider Unavail able Ashwini Lara MD Primary Care Provider Un available Encounter Details Date Type Department Care Team Description 07/12/2015 Entry Level Administrative Assistant Report Medical Records [address] [place] [address] Abstract, Provider Social History Tobacco Use Types [...] on filedocumented in this encounter Care Teams Television Actor Relationship Specialty Start Date End Date Ashwini Lara MD PCP - General Internal Medicine 12/30/1502/16 Meenu Irving MD PCP - General Internal Medicine 02/17/19 Ashwini Lara MD PCP - General 05/20/15 12/29/15 documented as of this encounter
--- OUTSIDE RECORDS SUMMARY | 2024-08-06 09:30 | XMS_ITS | Clinical Summary ---
Author Organization [employer] Address [address] [facility] [address] [place] [address] Care Team Providers Care Director Automotive Name Role Phone Lexy Kendall MD Primary Care Provider [phone] Allergies No known active allergies Medications * [...] statin therapy, patient is high risk for stroke/NC. Will leave order to be repeated in [...] will be refer for OP services in [place] per his request. Patient with lack of [...] informal support. PLAN: 1. Follow up with [facility]: Not recommended for follow-up 2. Patient goal [...] Type Department Care Team Description 07/30/2024 Telephone [facility] MEDICINE [address] [place] [address] Lexy Kendall MD 07/21/2024 10:00 AM EDT Office Visit [facility] MED & PEDS [address] [place], [place] [phone] Karol Sanchez MD Hearing deficit, bilateral (Primary Dx); Type 2 diabetes mellitus with stage 3a chronic kidney disease, unspecified whether long wall mining machine tender insulin use ([facility]); Blurry vision, left eye 07/21/2024 Travel 07/20/2024 Telephone [facility] [address] [place] [address] Lexy Kendall MD Chart Prep 07/20/2024 Telephone [facility] MEDICINE [address] [place] [address] Lexy Kendall MD nurse triage 07/19/2024 Refill [facility] [address] [place] [address] Lexy Kendall MD Chronic idiopathic constipation 07/10/2024 Population Health Risk Score Community [facility] ([facility]) Department [address] [place] [phone] Provider, Population Health Generic 07/03/2024 Refill [facility] [address] [place] [address] Lexy Kendall MD 07/03/2024 Refill [facility] [address] [place] [address] Rojas Cox MD Major depressive disorder with single episode, in full remission ([facility]/HCC) 06/30/2024 1:30 PM EST Office Visit [facility]ED[facility] [address] [place] [address] Lexy Kendall MD Pilar cyst of scalp (Primary Dx); Stage 3b chronic kidney disease (CMS/HCC); Essential hypertension; Coronary artery disease involving coronary bypass graft of [place] heart, unspecified whether angina present; Type 2 diabetes mellitus with stage 3a chronic kidney disease, unspecified whether fdc insulin use (CMS/HCC) 06/30/2024 Travel 06/29/2024 Telephone [facility]S [address] [place] [address] Lexy Kendall MD Chart Prep 05/14/2024 Orders Only [facility] External Provider, [facility] 05/13/2024 Refill [facility]S [address] [place] [address] Rojas Cox MD from Last 3 Months Immunizations Name Administration [...] [facility] [address] [place] [address] Lexy Kendall MD [address] [place] [address] Health Maintenance Due Date Last Done Comments Zoster Vaccines (2 of 3) 05/03/2016 03/08/2016, 02/27 RSV Patients and Patients Aged 60 years or older (1 - 1-dose 75+ series) 2023 COVID-19 Vaccine ( season) 2023 05/08/2021, 11/09/2020, 10/19/2020 Influenza Vaccine (#1) 2023 3, 01/15/2022, 02/24/2021, Additional history exists Diabetes: Hemoglobin A1C 09/02/202403/05/2 024, 10/01/2023, 02/05/2023, Additional history exists Diabetes: [...] stage 3a chronic kidney disease, unspecified whether fdc insulin use ([facility]) POCT GLUCOSE Routine 07/21/2024 10:40 AM EDT Type 2 diabetes mellitus with stage 3a chronic kidney disease, unspecified whether long wall mining machine tender insulin use (CMS/[facility]) CT ABDOMEN WO CONTRAST Routine 05/14/2024 3:44 PM EST POCT GLYCATED HEMOGLOBIN, TOTAL Routine 03/05/2024 2:21 PM EST Type 2 diabetes mellitus with stage 3a chronic kidney disease, unspecified whether long wall mining machine tender insulin use (CMS/HCC) HM DIABETES EYE EXAM Routine 02/20/2024 3:45 PM EDT LIPID PANEL, STANDARD Routine 01/27/2024 4:11 PM EDT Type 2 diabetes mellitus with stage 3a chronic kidney disease, unspecified whether long wall mining machine tender insulin use (CMS/HCC) HEPATITIS C AB W/REFL TO HCV RNA, QN, PCR Routine 02/05/2023 12:40 PM EDT Type 2 diabetes mellitus with stage 3a chronic kidney disease, unspecified whether long wall mining machine tender insulin use (CMS/HCC) from Last 3 Months or Most Recently Relevant to Health Maintenance Results * POCT Glucose (07/21/2024 10:40 AM EDT) Glucose Blood, POC 97 60 - 200 mg/dL QC Media Lot # [id number] Lot# Expiration Date 7,325 Blood Capillary blood specimen / Unknown 07/21/2024 10:40 AM EDT us Karol Sanchez MD POINT [...] EST Narrative 05/21/2024 11:49 AM EST ? [facility] ?[address] ?[place], [place] [address] ? CT Scan Report ? Signed ? Patient: Conrado Boyd,Mamadou ?MR ?? #: [id number] ? : 1950 ?Acct:[id number] ? Age/Sex: 74 / M ?ADM Date: 05/14/24 ? Loc: HO.CT ? Attending Dr: Bipin Lockwood MD ? Ordering Physician: Bipin Lockwood MD ?? Date of Service: 05/14/24 ?? Procedure(s): CT abdomen wo IV con ?? Accession Number(s): [id number] ? cc: Lexy Kendall MD; Bipin Lockwood MD ? Report Number: ?? [id number]: Total DLP = ??294.00 mGy-cm ?? EXAMINATION: [...] DD/ 1544 ? TD/TT: 05/14/24 1612 ? Physical Therapy Technician: ? Procedure Note Donotuseinterpreter, Image - 05/21/[address] [address] [address] Scan Report Signed Patient: Tommy Alvarenga [facility] #: [id number] : 8Acct:[id number] Age/Sex: 74 / MADM Date: 05/14/24 Loc: HO.CT Attending Dr: Bipin Lockwood MD Ordering Physician: Bipin Lockwood MD Date of Service: 05/14/24 Procedure(s): CT abdomen wo IV con Accession Number(s): [id number] cc: Lexy Kendall MD; Bipin Lockwood MD Report Number: [id number]: Total DLP = 294.00 mGy-cm EXAMINATION: CT [...] 05/21/24 1146 DD/ 1544 TD/TT: 05/14/24 1612 Physical Therapy Technician: [facility] External Provider IMG CT PROCEDURES Final Result * (ABNORMAL) POCT HGB A1C (03/05/2024 2:21 [...] 4:11 PM EDT) Triglycerides 313(H) <150 mg/dL [facility] Comment:Desirable Triglyceri de: less than 150 mg/dLBorderline High Triglyceride 150-199 mg/dLHigh Triglyceride: 200-499 mg/dLVery High Triglyceride: greater than or equal to 5OO mg/dL Cholesterol 200(H) <200 mg/dL [facility] Comment:Desirable Cholestero l: less than 200 mg/dLBorderline High Cholesterol: 200-239 mg/dLHigh Cholesterol: greater than 239 mg/dL LDL Cholesterol Calculated 100(H) <100 mg/dL [facility] Comment:Desirable LDL: less than 100 mg/dLNear Optimal/Above Optimal LDL: 110- 129 mg/dLBorderline High LDL: 130-159 mg/dLHigh LDL: 160-189 mg/dLVery High LDL: greater than or equal to 190 mg/dL HDL Cholesterol 38(L) >40 mg/dL [facility] Comment:Desirable HDL: great er than 40 mg/dL Note: This HDL assay may give artificially low results in patients with liver disease. Blood Venous blood specimen / Unknown 01/27/2024 4:11 PM EDT 01/27/2024 5:38 PM EDT us Rojas Miller MD LAB BLOOD ORDERABL ES Final Result [facility] [address] [place], [place] [phone] * Hepatitis C Antibody with Reflex to HCV, RNA, Quantitative, Real-Time PCR (02/05/2023 12:40 PM EDT) Hepatitis C Antibody Nonreactive Nonreactive [facility] Comment:Antibodies to HCV no t detected; does not exclude early acuteHCV infection. Blood Venous blood specimen / Unknown 02/05/2023 12:40 PM EDT 02/05/2023 2:06 PM EDT us Rojas Miller MD LAB BLOOD ORDERABL ES Final Result [facility] [address] [place] [address] [phone] from Last 3 Months or Most Recently Relevant to Health Maintenance Insurance - [employer] Care Teams Director Automotive Relationship Specialty Start Date End Date Lexy Kendall MD [address] [place] [address] PCP - General Internal Medicine 02/12/24
--- OUTSIDE RECORDS SUMMARY | 2024-08-06 09:30 | XMS_ITS | Encounter Summary ---
Author Organization [employer] Address [address] [place] [address] 7 [place] [address] Care Team Providers Care Community Integration Specialist Name Role Phone Rojas Cox MD Primary Care Prov ider Lexy Kendall MD Primary Care Provider [phone] Encounter Details Date Type Department Care Team (Late st Contact Info) Description 12/04/2022 Orders Only [facility] MED [facility] PED[facility] [address] [place] [address] Rupa Velasco LPN Social History Tobacco Use [...] 9:00 AM EDT Office Visit [facility] [address], [place] [phone] Lexy Kendall MD [address] [place] [address] documented as of this encounter Visit Diagnoses Not on filedocumented in this encounter Additional Health Concerns Assessment Noted Time PHQ-9 Depression Total Score: 18 023 12:45 PM EDT documented as of this encounter Care Teams Community Integration Specialist Relationship Specialty Start Date End Date Rojas Cox MD [address] [place] [address] PCP - General Internal Medicine 03/09/19 02/11/24 Lexy Kendall MD [address] [place] [address] PCP - General Internal Medicine 02/12/24 documented as of this encounter
--- OUTSIDE RECORDS SUMMARY | 2024-08-06 09:30 | XMS_ITS | Encounter Summary ---
Author Organization [facility] Address [address] [place] [address] Care Team Providers Care Railroad Operating Engineer Name Role Phone Meenu Irving MD Primary Care Provider Unavail able Encounter Details Date Type Department Care Team Description 09/09/2019 Vat Washer Report Medical Records [address] [place] [address] Won Perez MD [address] [place] [address] [place] [address] Social History Tobacco Use Types Packs/Day Years [...] filedocumented in this encounter Care Teams Railroad Operating Engineer Relationship Specialty Start Date End Date Meenu Irving MD PCP - General Internal Medicine 02/17/19 documented as of this encounter
--- OUTSIDE RECORDS SUMMARY | 2024-08-06 09:30 | XMS_ITS | Encounter Summary ---
Author Organization [facility] Address [address] [place] [address] Care Team Providers Care Small Engine Specialist Name Role Phone Ashwini Lara MD Primary Care Provider Un available Meenu Irving MD Primary Care Provider Unavail able Ashwini Lara MD Primary Care Provider Un available Encounter Details Date Type Department Care Team Description 07/12/2015 Javascript Programmer Report Medical Records [address] [place] [address] Social History Tobacco Use Types Packs/Day Years [...] on filedocumented in this encounter Care Teams Small Engine Specialist Relationship Specialty Start Date End Date Ashwini Lara MD PCP - General Internal Medicine 12/30/1502/16 Meenu Irving MD PCP - General Internal Medicine 02/17/19 Ashwini Lara MD PCP - General 05/20/15 12/29/15 documented as of this encounter
[2024-08-06 18:24] LABS: Creatinine Urine 66.26 mg/dL; Protein/Creatinine Ratio, Ur 0.33 (<0.2); Total Protein Urine Random 22 mg/dL (<12)
== END 2024-08-06 08:56 | disposition home or self-care (01) ==
LOC: HO.HKASLDS 08:55
PROVIDERS: Visit Provider Internal Medicine Nephrology
DX: I10 Essential (primary) hypertension (principal); N18.31 Chronic kidney disease, stage 3a; N28.1 Cyst of kidney, acquired
CPT/HCPCS: 82570; 84156; 99212

== ENCOUNTER 2024-08-06 14:31 | Outpatient (AMB) | payer OTHER, SELFPAY ==
--- NOTE | 2024-08-06 14:34 | HO.NEPHOV_ITS ---
Vital Signs 08/06/24 14:37 Height 5 ft 4 in Weight 175 lb 4 oz BMI 30.1 BP 116/62 Blood Pressure Location Rt brachial Pulse 74 Pulse Source Pulse Oximeter Pulse Oximetry (%) 96 Oxygen Delivery Method Room Air Intake Visit Reasons: 3mon follow-up w/labs Acid Purifier Required: No Accompanied by: Daughter Allergies No Known Allergies Allergy (Verified 08/06/24 14:40) Do you need a note to return to daycare/school/sports/work: No HPI Comments Details: He was seen in follow up for CKD. He is a 74 year old Korean speaking gentleman accompanied by daughter and family during this encounter. He has CAD & is S/P cardiac surgery but denies carotid stenosis, CVA, CHF or PAD. He has dyslipidemia as well as hyperuricemia. His BP is well controlled on medications. He denies being a diabetic or having retinopathy or proteinuria. He denies new bone pain, back pain, H/O paraproteinemia or any malignancy. He has no sensori neural deafness, microscopic hematuria or renal calculi. He does not take excess NSAID's. He has no epistaxis, photosensitivity, skin rashes, sinusitis or edema. His last serum creatinine was 1.4 PFSH Medical History Screening for colon cancer Prostate cancer screening Chronic idiopathic constipation History of tremor Vitamin D deficiency Diabetes mellitus CISCO on CPAP Old myocardial infarction Hypothyroidism Hyperlipidemia with target LDL less than 70 Essential hypertension Depression CKD (chronic kidney disease) CAD (coronary artery disease) Renal cyst Surgical History H/O heart surgery Presence of stent in coronary artery Family History Mother Hypertension Diabetes Heart disease Social History Alcohol intake: never Patient Tobacco Use Status: Former Tobacco user Review of Systems Const All systems reviewed & are unremarkable except as noted in HPI and below Physical Exam Vital Signs: Last Vital Signs Pulse 74 08/06/24 14:37 BP 116/62 08/06/24 14:37 Pulse Ox 96 08/06/24 14:37 Oxygen Delivery Method Room Air 08/06/24 14:37 BMI result Body Mass Index 30.1 Const General: comfortable and no acute distress Orientation/consciousness: patient oriented x3 HEENT Head: Yes normocephalic Mouth: Normal oral and palatal mucosa present Eyes EOM: EOMs intact bilaterally Neck Neck: Yes supple Resp Auscultation: clear to auscultation bilaterally Cardio Jugular venous distension: no JVD Rate: regular rate GI Palpation (GI): Soft to palpation Auscultation: normal bowel sounds General: Yes no CVA tenderness Back/Spine/Pelvis Back: no CVA tenderness Skin General skin exam: no rashes or lesions noted Neuro General: patient oriented x3 and moves all extremities Extrem General: Yes no pedal edema Results Reviewed Nephrology Results: Hgb 14.1 g/dl (14.0-18.0) 05/07/24 WBC 8.0 X10*3/uL (4.8-10.8) 05/07/24 Plt Count 381 X10*3/uL (160-400) 05/07/24 Sodium 142 mmol/L (135-145) 08/05/24 Potassium 3.9 mmol/L (3.3-5.1) 08/05/24 Chloride 110 mmol/L (96-108) H 08/05/24 Carbon Dioxide 25 mmol/L (22-29) 08/05/24 BUN 9 mg/dL (9-16) 08/05/24 Creatinine 1.40 mg/dL (0.5-1.4) 08/05/24 Calcium 9.8 mg/dL (8.4-10.2) 05/07/24 Phosphorus 3.8 mg/dL (2.7-4.5) 05/07/24 PTH Intact 127.4 pg/mL (8.7-77.1) H 05/07/24 Urine Creatinine 59.67 mg/dL 05/07/24 Protein/Creatinin Ratio 0.25 (<0.2) H 05/07/24 Renal US 04/30/24 Assessment & Plan Assessment & Plan (1) CKD stage 3a, GFR 45-59 ml/min: Code(s): N18.31 - Chronic kidney disease, stage 3a Category: Medical (2) Hypertension: Code(s): I10 - Essential (primary) hypertension Category: Medical Qualifiers: Hypertension type: primary hypertension Qualified Code(s): I10 - Essential (primary) hypertension (3) Renal cyst: Code(s): N28.1 - Cyst of kidney, acquired Category: Medical Plan Tommy most likely has CKD due to vascular disease. He has CAD & has H/O CABG. His urine output is good. He does not take NSAID's. His blood pressure is at goal. He is not on ACEI/ARB. He has complex cysts with one lesion looking suspicious . He follows with [facility]. He likely will need SGLT2 i. All these were discussed in detail. Answered all questions Orders: Orders Creatinine 6 Months I10 - Essential (primary) hypertension, N18.31 - Chronic kidney disease, stage 3a, N28.1 - Cyst of kidney, acquired Blood Urea Nitrogen 6 Months I10 - Essential (primary) hypertension, N18.31 - Chronic kidney disease, stage 3a, N28.1 - Cyst of kidney, acquired Electrolytes 6 Months I10 - Essential (primary) hypertension, N18.31 - Chronic kidney disease, stage 3a, N28.1 - Cyst of kidney, acquired Coding Level of Care Code Est Pt Level 4 (43520) Diagnoses CKD stage 3a, GFR 45-59 ml/min N18.31 Primary hypertension I10 Hypertension type: primary hypertension Renal cyst N28.1
[2024-08-06 14:37] VITALS: BP 116/62; PULSE 74; O2SAT 96; BMI 30.1
--- OUTSIDE RECORDS SUMMARY | 2024-08-06 17:14 | XMS_ITS | Encounter Summary ---
Author Organization [facility] Address [address] [place] [address] Care Team Providers Care Sagger Preparer Name Role Phone Ashwini Lara MD Primary Care Provider Un available Meenu Irving MD Primary Care Provider Unavail able Encounter Details Date Type Department Care Team Description 11/25/2018 Foam Rubber Curer Report Medical Records [address] [place] [address] Kate Beach PA-C Social History Tobacco Use [...] on filedocumented in this encounter Care Teams Sagger Preparer Relationship Specialty Start Date End Date Ashwini Lara MD PCP - General Internal Medicine 12/30/1502/16 Meenu Irving MD PCP - General Internal Medicine 02/17/19 documented as of this encounter
--- OUTSIDE RECORDS SUMMARY | 2024-08-06 17:14 | XMS_ITS | Encounter Summary ---
Author Organization [facility] Address [address] [place] [address] Care Team Providers Care Wood Model Maker Name Role Phone Ashwini Lara MD Primary Care Provider Un available Meenu Irving MD Primary Care Provider Unavail able Encounter Details Date Type Department Care Team Description 07/09/2016 SCAN Medical Records [address] [place] [address] Abstract, Provider Social History Tobacco Use Types [...] on filedocumented in this encounter Care Teams Wood Model Maker Relationship Specialty Start Date End Date Ashwini Lara MD PCP - General Internal Medicine 12/30/1502/16 Meenu Irving MD PCP - General Internal Medicine 02/17/19 documented as of this encounter
--- OUTSIDE RECORDS SUMMARY | 2024-08-06 17:14 | XMS_ITS | Encounter Summary ---
Author Organization [facility] Address [address] [place] [address] Care Team Providers Care District Manager Primary Care Sales Name Role Phone Meenu Irving MD Primary Care Provider Unavail able Encounter Details Date Type Department Care Team Description 03/17/2019 Release of Information Medical Records [address] [place] [address] Abstract, Provider Social History Tobacco Use Types [...] on filedocumented in this encounter Care Teams District Manager Primary Care Sales Relationship Specialty Start Date End Date Meenu Irving MD PCP - General Internal Medicine 02/17/19 documented as of this encounter
--- OUTSIDE RECORDS SUMMARY | 2024-08-06 17:14 | XMS_ITS | Encounter Summary ---
Author Organization [employer] Address [address] [place] [address] [address] [place] [address] Care Team Providers Care Investigative Research Specialist Name Role Phone Rojas Cox MD Primary Care Prov ider Lexy Kendall MD Primary Care Provider [phone] Encounter Details Date Type Department Care Team (Late st Contact Info) Description 12/04/2022 Orders Only [facility] MED & PEDS [address] [place] [address] Rupa Velasco LPN Social History Tobacco Use [...] 9:00 AM EDT Office Visit [facility] [address] [place], [place] [phone] Lexy Kendall MD [address] [place] [address] documented as of this encounter Visit Diagnoses Not on filedocumented in this encounter Additional Health Concerns Assessment Noted Time PHQ-9 Depression Total Score: 18 023 12:45 PM EDT documented as of this encounter Care Teams Investigative Research Specialist Relationship Specialty Start Date End Date Rojas Cox MD [address] [place] [address] PCP - General Internal Medicine 03/09/19 02/11/24 Lexy Kendall MD [address] [place] [address] PCP - General Internal Medicine 02/12/24 documented as of this encounter
--- OUTSIDE RECORDS SUMMARY | 2024-08-06 17:14 | XMS_ITS | Encounter Summary ---
Author Organization [facility] Address [address] [place] [address] Care Team Providers Care Land Sales Agent Name Role Phone Name, Angelito WILLSON Primary Care Provider UnavailAshwini Montoya MD Primary Care Provider Un available Meenu Irving MD Primary Care Provider Unavail able Ashwini Lara MD Primary Care Provider Un available Encounter Details Date Type Department Care Team Description 02/27/2013 Orders Only Adult Medicine [address] [address] Name, MD Angelito DM (diabetes mellitus) (Primary [...] LIPID PROFILE (02/28/2013 9:21 AM EDT) Pathologist [facility] Cholesterol 265(H) 0 - 200 mg/dL 03/01/2013 11:19 AM [facility] TRIGLYCERIDES 378(H) 0 - 150 mg/dL 03/01/2013 11:15 AM [facility] HDL CHOLESTEROL 35(L) >40 mg/dL 3 11:19 AM [facility] LDL CALCULATED 155(H) 0 - 100 mg/dL 03/01/2013 11:19 AM [facility] TC-HDLC RATIO 8(H) 0.0 - 4.4 mg/dL 03/01/2013 11:19 AM [facility] 02/28/2013 9:21 AM EDT 02/28/2013 9:21 AM EDT Angelito Aguirre MD LAB Performing Organization Address [facility] Co de Phone Number [address] * HEMOGLOBIN A1C (02/28/2013 9:21 AM EDT) Glycosylated Hemoglobin A1C 6.0 4.0 - 6.0 % 03/01/2013 11:59 AM [facility] Comment: HbA1C VALUES MAY NOT ACCURATELY REFLECT MEAN BLOOD GLUCOSE IN PATIENTS WITH HEMOGLOBIN VARIANTS SUCH HbF, HbS. 02/28/2013 9:21 AM EDT 02/28/2013 9:21 AM EDT Angelito Aguirre MD LAB Performing Organization Address [facility] Co de Phone Number [address] documented in this encounter Visit Diagnoses Diagnosis DM (diabetes mellitus) (HCC)- Primary Type II or unspecified type diabetes mellitus without mention of complication, not stated as uncontrolled documented in this encounter Care Teams Land Sales Agent Relationship Specialty Start Date End Date Name, MD Angelito PCP - General Internal Medicine 07/18/12 05/19/15 Ashwini Lara MD PCP - General Internal Medicine 12/30/1502/16 Meenu Irving MD PCP - General Internal Medicine 02/17/19 Ashwini Lara MD PCP - General 05/20/15 12/29/15 documented as of this encounter
--- OUTSIDE RECORDS SUMMARY | 2024-08-06 17:14 | XMS_ITS | Encounter Summary ---
Author Organization [facility] Address [address] [place] [address] Care Team Providers Care Fisher Spear Name Role Phone Ashwini Lara MD Primary Care Provider Un available Meenu Irving MD Primary Care Provider Unavail able Encounter Details Date Type Department Care Team Description 03/01/2016 Transfer Records Medical Records [address] [place] [address] Abstract, Provider Social History Tobacco Use Types [...] on filedocumented in this encounter Care Teams Fisher Spear Relationship Specialty Start Date End Date Ashwini Lara MD PCP - General Internal Medicine 12/30/1502/16 Meenu Irving MD PCP - General Internal Medicine 02/17/19 documented as of this encounter
--- OUTSIDE RECORDS SUMMARY | 2024-08-06 17:14 | XMS_ITS | Encounter Summary ---
Author Organization [facility] [employer] [facility] Address [address] [place] [address] 7 [place] [address] Care Team Providers Care Spirits Model Name Role Phone Rojas Cox MD Primary Care Prov ider Lexy Kendall MD Primary Care Provider [phone]- [phone] Encounter Details Date Type Department Care Team (Late st Contact Info) Description 09/18/2022 Orders Only [facility] [address] [place] [address] Jaye Sommer LPN Social History Tobacco Use [...] Description 10/26/2024 9:00 AM EDT Office Visit [facility] [address] [place] [address] Lexy Kendall MD [address] [place] [address] documented as of this encounter Visit Diagnoses Not on filedocumented in this encounter Additional Health Concerns Assessment Noted Time PHQ-9 Depression Total Score: 18 023 12:45 PM EDT documented as of this encounter Care Teams Spirits Model Relationship Specialty Start Date End Date Garner Rojas Miller MD [address] [place] [address] PCP - General Internal Medicine 03/09/19 02/11/24 Lexy Kendall MD [address] [place] [address] PCP - General Internal Medicine 02/12/24 documented as of this encounter
--- OUTSIDE RECORDS SUMMARY | 2024-08-06 17:14 | XMS_ITS | Encounter Summary ---
Author Organization [facility] Address [address] [place] [address] Care Team Providers Care Instrumentation Engineer Name Role Phone Ashwini Lara MD Primary Care Provider Un available Meenu Irving MD Primary Care Provider Unavail able Reason for Visit * Reason Onset Date Comments Faxed Refill 04/25/2018 Encounter Details Date Type Department Care Team Description 04/25/2018 Refill Adult Medicine [address] [address] Ashwini Lara MD Faxed Refill Social History [...] / Plan: [place] / Product Type: MEDICARE [id number] ?? documented in this encounter Plan of Treatment Not on file documented as of this encounter Visit Diagnoses Not on filedocumented in this encounter Care Teams Instrumentation Engineer Relationship Specialty Start Date End Date Ashwini Lara MD PCP - General Internal Medicine 12/30/1502/16 Meenu Irving MD PCP - General Internal Medicine 02/17/19 documented as of this encounter
--- OUTSIDE RECORDS SUMMARY | 2024-08-06 17:14 | XMS_ITS | Encounter Summary ---
Author Organization [employer] Address [address] [facility] [address] [place] [address] Care Team Providers Care Food Handler Name Role Phone Rojas Cox MD Primary Care Prov ider Lexy Kendall MD Primary Care Provider [phone]- [phone] Reason for Visit * Reason Comments Med Refill Encounter Details Date Type Department Care Team ([facility] st Contact Info) Description 10/13/2023 Refill [facility] [address] [place], [place] [phone] Irasema Meek MD [address] [place] [address] Social History Tobacco Use Types Packs/Day Years [...] Description 10/26/2024 9:00 AM EDT Office Visit [facility] [address] [place] [address] Lexy Kendall MD [address] [place] [address] documented as of this encounter Visit Diagnoses Not on filedocumented in this encounter Additional Health Concerns Assessment Noted Time PHQ-9 Depression Total Score: 18 023 12:45 PM EDT documented as of this encounter Care Teams Food Handler Relationship Specialty Start Date End Date Rojas Cox MD [address] [place] [address] PCP - General Internal Medicine 03/09/19 02/11/24 Lexy Kendall MD [address] [place] [address] PCP - General Internal Medicine 02/12/24 documented as of this encounter
--- OUTSIDE RECORDS SUMMARY | 2024-08-06 17:14 | XMS_ITS | Encounter Summary ---
Author Organization [facility] Address [address] [place] [address] Care Team Providers Care Secretary Name Role Phone Name, Angelito WILLSON Primary Care Provider UnavailAshwini Montoya MD Primary Care Provider Un available Meenu Irving MD Primary Care Provider Unavail able Ashwini Lara MD Primary Care Provider Un available Encounter Details Date Type Department Care Team Description 08/04/2014 Tower Equipment Installer Report Medical Records [address] [place] [address] Bimal Liao MD Social History Tobacco Use [...] on filedocumented in this encounter Care Teams Secretary Relationship Specialty Start Date End Date Name, MD Angelito PCP - General Internal Medicine 07/18/12 05/19/15 Ashwini Lara MD PCP - General Internal Medicine 12/30/1502/16 Meenu Irving MD PCP - General Internal Medicine 02/17/19 Ashwini Lara MD PCP - General 05/20/15 12/29/15 documented as of this encounter
--- OUTSIDE RECORDS SUMMARY | 2024-08-06 17:14 | XMS_ITS | Encounter Summary ---
Author Organization [employer] Address [address] [facility] 7 [place] [address] Care Team Providers Care Employee Welfare Manager Name Role Phone Rojas Cox MD Primary Care Prov ider Lexy Kendall MD Primary Care Provider [phone]- [phone] Reason for Visit * Reason Onset Date Comments Nurse Triage 10/30/2023 Encounter Details Date Type Department Care Team ([facility] st Contact Info) Description 10/30/2023 Telephone [facility] [address] [place], [place] [phone] Rojas Cox MD [address] [place] [address] Nurse Triage Social History Tobacco Use Types [...] PM EDT Noted. Pt currently admitted at [facility]. * Telephone Encounter - Irma Amaral RN [...] agrees to call EMS for transport to [facility] ER for immediate evaluation. Reviewed home care [...] this outcome Please contact anisa (daughter) at [phone] documented in this encounter Plan of Treatment Upcoming Encounters Date Type Department Care Team ([facility] st Contact Info) Description 10/26/2024 9:00 AM EDT Office Visit [facility] [address] [place] [address] Lexy eKndall MD [address] [place] [address] documented as of this encounter Visit Diagnoses Not on filedocumented in this encounter Additional Health Concerns Assessment Noted Time PHQ-9 Depression Total Score: 18 023 12:45 PM EDT documented as of this encounter Care Teams Employee Welfare Manager Relationship Specialty Start Date End Date GarnerRojas Valdez MD [address] [place] [address] PCP - General Internal Medicine 03/09/19 02/11/24 Lexy Kendall MD [address] [place] [address] PCP - General Internal Medicine 02/12/24 documented as of this encounter
--- OUTSIDE RECORDS SUMMARY | 2024-08-06 17:14 | XMS_ITS | Encounter Summary ---
Author Organization [facility] Address [address] [place] [address] Care Team Providers Care Single Fold Machine Operator Name Role Phone Ashwini Lara MD Primary Care Provider Un available Meenu Irving MD Primary Care Provider Unavail able Encounter Details Date Type Department Care Team Description 07/09/2016 SCAN Medical Records [address] [place] [id number] Abstract, Provider Routine adult health maintenance Social History Tobacco Use Types Packs/Day Years [...] Procedure Name Priority Date/Time Associated Diagnosis Comments AORTA DUPLEX Routine 06/20/2016 Routine adult health maintenance documented in this encounter Results * AORTA DUPLEX (06/20/2016) Ashwini Lara MD CARDIOLOGY documented in this encounter Visit Diagnoses Diagnosis Routine adult health maintenance Routine general medical examination at a health care facility documented in this encounter Care Teams Single Fold Machine Operator Relationship Specialty Start Date End Date Ashwini Lara MD PCP - General Internal Medicine 12/30/1502/16 Meenu Irving MD PCP - General Internal Medicine 02/17/19 documented as of this encounter
--- OUTSIDE RECORDS SUMMARY | 2024-08-06 17:14 | XMS_ITS | Encounter Summary ---
Author Organization [facility] Address [address] [place] [address] Care Team Providers Care Production Proofreader Name Role Phone Name, Angelito WILLSON Primary Care Provider Unavailabl e Ashwini Lara MD Primary Care Provider Un available Meenu Irving MD Primary Care Provider Unavail able Ashwini Lara MD Primary Care Provider Un available Encounter Details Date Type Department Care Team Description 09/03/2012 Release of Information Medical Records [address] [place] [id number] Abstract, Provider Social History Tobacco Use Types [...] on filedocumented in this encounter Care Teams Production Proofreader Relationship Specialty Start Date End Date Name, MD Angelito PCP - General Internal Medicine 07/18/12 05/19/15 Ashwini Lara MD PCP - General Internal Medicine 12/30/1502/16 Meenu Irving MD PCP - General Internal Medicine 02/17/19 Ashwini Lara MD PCP - General 05/20/15 12/29/15 documented as of this encounter
--- OUTSIDE RECORDS SUMMARY | 2024-08-06 17:14 | XMS_ITS | Encounter Summary ---
Author Organization [facility] Address [address] [place] [address] Care Team Providers Care Long Distance Operator Name Role Phone Name, Angelito WILLSON Primary Care Provider UnavailAshwini Montoya MD Primary Care Provider Un available Meenu Irving MD Primary Care Provider Unavail able Ashwini Lara MD Primary Care Provider Un available Encounter Details Date Type Department Care Team Description 03/19/2013 Business Doc Medical Records [address] [place] [address] Abstract, Provider Social History Tobacco Use Types [...] on filedocumented in this encounter Care Teams Long Distance Operator Relationship Specialty Start Date End Date Name, MD Angelito PCP - General Internal Medicine 07/18/12 05/19/15 Ashwini Lara MD PCP - General Internal Medicine 12/30/1502/16 Meenu Irving MD PCP - General Internal Medicine 02/17/19 Ashwini Lara MD PCP - General 05/20/15 12/29/15 documented as of this encounter
--- OUTSIDE RECORDS SUMMARY | 2024-08-06 17:14 | XMS_ITS | Encounter Summary ---
Author Organization [facility] Address [address] [place] [address] Care Team Providers Care Telegraph Equipment Maintainer Name Role Phone Ashwini Lara MD Primary Care Provider Un available Meenu Irving MD Primary Care Provider Unavail able Ashwini Lara MD Primary Care Provider Un available Encounter Details Date Type Department Care Team Description 07/12/2015 Reporting Specialist Report Medical Records [address] [place] [address] Abstract, Provider Social History Tobacco Use Types [...] on filedocumented in this encounter Care Teams Telegraph Equipment Maintainer Relationship Specialty Start Date End Date Ashwini Lara MD PCP - General Internal Medicine 12/30/1502/16 Meenu Irving MD PCP - General Internal Medicine 02/17/19 Ashwini Lara MD PCP - General 05/20/15 12/29/15 documented as of this encounter
--- OUTSIDE RECORDS SUMMARY | 2024-08-06 17:14 | XMS_ITS | Encounter Summary ---
Author Organization [facility] Address [address] [place] [address] Care Team Providers Care Dieing Out Machine Operator Name Role Phone Ashwini Lara MD Primary Care Provider Un available Meenu Irving MD Primary Care Provider Unavail able Encounter Details Date Type Department Care Team Description 10/12/2016 Asbestos Surveyor Report Medical Records [address] [place] [address] Aria Bradford MD Social History Tobacco Use [...] on filedocumented in this encounter Care Teams Dieing Out Machine Operator Relationship Specialty Start Date End Date Ashwini Lara MD PCP - General Internal Medicine 12/30/1502/16 Meenu Irving MD PCP - General Internal Medicine 02/17/19 documented as of this encounter
--- OUTSIDE RECORDS SUMMARY | 2024-08-06 17:14 | XMS_ITS | Encounter Summary ---
Author Organization [facility] Address [address] [place] [address] Care Team Providers Care Testing Engineer Name Role Phone Meenu Irving MD Primary Care Provider Unavail able Encounter Details Date Type Department Care Team Description 06/10/2019 Release of Information Medical Records [address] [place] [phone] Abstract, Provider Social History Tobacco Use Types [...] on filedocumented in this encounter Care Teams Testing Engineer Relationship Specialty Start Date End Date Meenu Irving MD PCP - General Internal Medicine 02/17/19 documented as of this encounter
--- OUTSIDE RECORDS SUMMARY | 2024-08-06 17:14 | XMS_ITS | Encounter Summary ---
Author Organization [facility] Address [address] [place] [address] Care Team Providers Care Tile Sorter Name Role Phone Ashwini Lara MD Primary Care Provider Un available Meenu Irving MD Primary Care Provider Unavail able Ashwini Lara MD Primary Care Provider Un available Encounter Details Date Type Department Care Team Description 12/22/2015 Activities Coordinator Report Medical Records [address] [place] [address] Bill Carbajal Social History Tobacco Use Types Packs/Day Years [...] on filedocumented in this encounter Care Teams Tile Sorter Relationship Specialty Start Date End Date Ashwini Lara MD PCP - General Internal Medicine 12/30/1502/16 Meenu Irving MD PCP - General Internal Medicine 02/17/19 Ashwini Lara MD PCP - General 05/20/15 12/29/15 documented as of this encounter
--- OUTSIDE RECORDS SUMMARY | 2024-08-06 17:14 | XMS_ITS | Encounter Summary ---
Author Organization [facility] Address [address] [place] [address] Care Team Providers Care Medical Coding Technician Name Role Phone Ashwini Lara MD Primary Care Provider Un available Meenu Irving MD Primary Care Provider Unavail able Ashwini Lara MD Primary Care Provider Un available Encounter Details Date Type Department Care Team Description 07/07/2015 Skein Yarn Dyer Helper Report Medical Records [address] [place] [address] Dania Ac Social History Tobacco Use Types Packs/Day Years [...] on filedocumented in this encounter Care Teams Medical Coding Technician Relationship Specialty Start Date End Date Ashwini Lara MD PCP - General Internal Medicine 12/30/1502/16 Meenu Irving MD PCP - General Internal Medicine 02/17/19 Ashwini Lara MD PCP - General 05/20/15 12/29/15 documented as of this encounter
--- OUTSIDE RECORDS SUMMARY | 2024-08-06 17:14 | XMS_ITS | Clinical Summary ---
Author Organization [employer] Address [address] [facility] 7[address] [place] [address] Care Team Providers Care Industrial Specialist Name Role Phone Lexy Kendall MD Primary Care Provider [phone] Allergies No known active allergies Medications * [...] statin therapy, patient is high risk for stroke/AL. Will leave order to be repeated in [...] will be refer for OP services in [place] per his request. Patient with lack of [...] informal support. PLAN: 1. Follow up with [facility]: Not recommended for follow-up 2. Patient goal [...] Type Department Care Team Description 07/30/2024 Telephone [facility] [address] [place] [address] Lexy Kendall MD 07/21/2024 10:00 AM EDT Office Visit [facility] [address] [place], [place] [phone] Karol Sanchez MD Hearing deficit, bilateral (Primary Dx); Type 2 diabetes mellitus with stage 3a chronic kidney disease, unspecified whether vermin exterminator insulin use ([facility]); Blurry vision, left eye 07/21/2024 Travel 07/20/2024 Telephone [facility] [address] [place] [address] Lexy Kendall MD Chart Prep 07/20/2024 Telephone [facility] [address] [place] [address] Lexy Kendall MD nurse triage 07/19/2024 Refill [facility] [address] [place] [address] Lexy Kendall MD Chronic idiopathic constipation 07/10/2024 Population Health Risk Score Community [facility] ([facility]) Department [address] [place] [phone] Provider, Population Health Generic 07/03/2024 Refill [facility] [address] [place] [address] Lexy Kendall MD 07/03/2024 Refill [facility] [address] [place] [address] Rojas Cox MD Major depressive disorder with single episode, in full remission ([facility]/HCC) 06/30/2024 1:30 PM EST Office Visit [facility] [address] [place] [address] Lexy Kendall MD Pilar cyst of scalp (Primary Dx); Stage 3b chronic kidney disease (CMS/HCC); Essential hypertension; Coronary artery disease involving coronary bypass graft of [place] heart, unspecified whether angina present; Type 2 diabetes mellitus with stage 3a chronic kidney disease, unspecified whether mcfp insulin use (CMS/HCC) 06/30/2024 Travel 06/29/2024 Telephone [facility] [address] [place] [address] Lexy Kendall MD Chart Prep 05/14/2024 Orders Only [facility] External Provider, [facility] 05/13/2024 Refill [facility] [address] [place] [address] Rojas Cox MD from Last 3 Months [...] [facility] [address] [place] [address] Lexy Kendall MD [address] [place] [address] Health Maintenance Due Date Last Done Comments [...] stage 3a chronic kidney disease, unspecified whether mcfp insulin use ([facility]) POCT GLUCOSE Routine 07/21/2024 10:40 AM EDT Type 2 diabetes mellitus with stage 3a chronic kidney disease, unspecified whether vermin exterminator insulin use (CMS/[facility]) CT ABDOMEN WO CONTRAST Routine 05/14/2024 3:44 PM EST POCT GLYCATED HEMOGLOBIN, TOTAL Routine 03/05/2024 2:21 PM EST Type 2 diabetes mellitus with stage 3a chronic kidney disease, unspecified whether vermin exterminator insulin use (CMS/HCC) HM DIABETES EYE EXAM Routine 02/20/2024 3:45 PM EDT LIPID PANEL, STANDARD Routine 01/27/2024 4:11 PM EDT Type 2 diabetes mellitus with stage 3a chronic kidney disease, unspecified whether vermin exterminator insulin use (CMS/HCC) HEPATITIS C AB W/REFL TO HCV RNA, QN, PCR Routine 02/05/2023 12:40 PM EDT Type 2 diabetes mellitus with stage 3a chronic kidney disease, unspecified whether vermin exterminator insulin use (CMS/HCC) from Last 3 Months [...] EST Narrative 05/21/2024 11:49 AM EST ? [facility] ?[address] ?[place], [place] [address] ? CT Scan Report ? Signed ? Patient: Conrado Boyd,Mamadou ?MR ?? #: [id number] ? : 1950 ?Acct:[id number] ? Age/Sex: 74 / M ?ADM Date: 05/14/24 ? Loc: HO.CT ? Attending Dr: Bipin Lockwood MD ? Ordering Physician: Bipin Lockwood MD ?? Date of Service: 05/14/24 ?? Procedure(s): CT abdomen wo IV con ?? Accession Number(s): [id number] ? cc: Lexy Kendall MD; Bipin Lockwood MD ? Report Number: ?? [id number]: Total DLP = ??294.00 mGy-cm ?? EXAMINATION: [...] DD/ 1544 ? TD/TT: 05/14/24 1612 ? Whipped Topping Mixer: ? Procedure Note Donotuseinterpreter, Image - 05/21/[address] [address] [address] Scan Report Signed Patient: Tommy Alvarenga [facility] #: [id number] : 8Acct:[id number] Age/Sex: 74 / MADM Date: 05/14/24 Loc: HO.CT Attending Dr: Bipin Lockwood MD Ordering Physician: Bipin Lockwood MD Date of Service: 05/14/24 Procedure(s): CT abdomen wo IV con Accession Number(s): [id number] cc: Lexy Kendall MD; Bipin Lockwood MD Report Number: [id number]: Total DLP = 294.00 mGy-cm EXAMINATION: CT [...] 05/21/24 1146 DD/ 1544 TD/TT: 05/14/24 1612 Whipped Topping Mixer: [facility] External Provider IMG CT PROCEDURES Final [...] 4:11 PM EDT) Triglycerides 313(H) <150 mg/dL [facility] Comment:Desirable Triglyceri de: less than 150 mg/dLBorderline High Triglyceride 150-199 mg/dLHigh Triglyceride: 200-499 mg/dLVery High Triglyceride: greater than or equal to 5OO mg/dL Cholesterol 200(H) <200 mg/dL [facility] Comment:Desirable Cholestero l: less than 200 mg/dLBorderline High Cholesterol: 200-239 mg/dLHigh Cholesterol: greater than 239 mg/dL LDL Cholesterol Calculated 100(H) <100 mg/dL [facility] Comment:Desirable LDL: less than 100 mg/dLNear Optimal/Above Optimal LDL: 110- 129 mg/dLBorderline High LDL: 130-159 mg/dLHigh LDL: 160-189 mg/dLVery High LDL: greater than or equal to 190 mg/dL HDL Cholesterol 38(L) >40 mg/dL [facility] Comment:Desirable HDL: great er than 40 mg/dL Note: This HDL assay may give artificially low results in patients with liver disease. Blood Venous blood specimen / Unknown 01/27/2024 4:11 PM EDT 01/27/2024 5:38 PM EDT us Rojas Miller MD LAB BLOOD ORDERABL ES Final Result [facility] [address] [place], [place] [phone] * Hepatitis C Antibody with Reflex to HCV, RNA, Quantitative, Real-Time PCR (02/05/2023 12:40 PM EDT) Hepatitis C Antibody Nonreactive Nonreactive [facility] Comment:Antibodies to HCV no t detected; does not exclude early acuteHCV infection. Blood Venous blood specimen / Unknown 02/05/2023 12:40 PM EDT 02/05/2023 2:06 PM EDT us Rojas Miller MD LAB BLOOD ORDERABL ES Final Result [facility] [address] [place] [address] [phone] from Last 3 Months or Most Recently Relevant to Health Maintenance Insurance - [employer] Care Teams Industrial Specialist Relationship Specialty Start Date End Date Lexy Kendall MD [address] [place] [address] PCP - General Internal Medicine 02/12/24
--- OUTSIDE RECORDS SUMMARY | 2024-08-06 17:14 | XMS_ITS | Encounter Summary ---
Author Organization [facility] Address [address] [place] [address] Care Team Providers Care Voting Machine Mechanic Name Role Phone Meenu Irving MD Primary Care Provider Unavail able Encounter Details Date Type Department Care Team Description 07/05/2020 Hospital Medical Records [address] [place] [phone] Social History Tobacco Use Types Packs/Day Years [...] on filedocumented in this encounter Care Teams Voting Machine Mechanic Relationship Specialty Start Date End Date Meenu Irving MD PCP - General Internal Medicine 02/17/19 documented as of this encounter
--- OUTSIDE RECORDS SUMMARY | 2024-08-06 17:14 | XMS_ITS | Encounter Summary ---
Author Organization [facility] Address [address] [place] [address] Care Team Providers Care Turn Out Worker Name Role Phone Ashwini Lara MD Primary Care Provider Un available Meenu Irving MD Primary Care Provider Unavail able Encounter Details Date Type Department Care Team Description 12/01/2018 Investment Underwriter Report Medical Records [address] [place] [address] Won Perez MD [address] [place] [address] [place] [address] Social History Tobacco Use Types Packs/Day Years [...] on filedocumented in this encounter Care Teams Turn Out Worker Relationship Specialty Start Date End Date Ashwini Lara MD PCP - General Internal Medicine 12/30/1502/16 Meenu Irving MD PCP - General Internal Medicine 02/17/19 documented as of this encounter
--- OUTSIDE RECORDS SUMMARY | 2024-08-06 17:14 | XMS_ITS | Encounter Summary ---
Author Organization [employer] Address [address] [facility] 7[address] [place] [address] Care Team Providers Care Dredge Runner Name Role Phone Lexy Kendall MD Primary Care Provider [phone] Encounter Details Date Type Department Care Team (Late st Contact Info) Description 03/30/2024 Orders [address] [facility] [address] [place] [address] Provider, MD Katie Social History Tobacco Use [...] [facility] [address] [place] [address] Lexy Kendall MD [address] [place] [address] documented as of this encounter Procedures Procedure [...] documented as of this encounter Care Teams Dredge Runner Relationship Specialty Start Date End Date Lexy Kendall MD [address] [place] [address] PCP - General Internal Medicine 02/12/24 documented as of this encounter
--- OUTSIDE RECORDS SUMMARY | 2024-08-06 17:14 | XMS_ITS | Clinical Summary ---
Author Organization [facility] Address [address] [place] [address] Care Team Providers Care Doctor Of Pharmacy Name Role Phone Meenu Irving MD Primary Care Provider Surgical History Surgery Date Site/Laterality Comments OTHER SURGICAL HISTORY PROCEDURE: STENT, CORONARY, S660 COLONOSCOPY 12/26/12 PROCEDURE: HISTORICAL COLONOSCOPY; COMMENT: tics and inflammatory polyp. Repeat in ten yrs. CORONARY ARTERY BYPASS GRAFT 05/2015 PROCEDURE: HISTORICAL CABG Medical History Medical History Date Comments DM (diabetes mellitus) ([facility] V24, [facility] V28) 09/01/2012 DX:DM (diabetes mellitus) ( CC) Non-ST elevation MO (NSTEMI) ([facility] V24, [facility] V28) 09/01/2012 DX:Non-ST elevation MO (NSTE MO) ([facility]) Presence of stent in coronary artery 09/01/2012 [...] 2023 COVID-19 Vaccine ( - season) 2023 Cholesterol Screening (Lipid Panel) 01/22/2024 Depression Screening 01/22/2024 Diabetes: Annual Urine Albumin-Creatinine Ratio (uACR) 01/22/2024 Diabetes: Blood Sugar Control Test (HGBA1C) 01/22/2024 Falls Risk Assessment 01/22/2024 Hepatitis C Screening 01/22/2024 Hypertension/CHF/CAD Annual BMP Blood Test 01/22/2024 Social Influencers of Health Screening 01/22/2024 Influenza Vaccine (Season Ended) 2024 01/16/2019, 03/18/2018, 01/09/2015, Additional history exists Pneumococcal Vaccine: 50+ Years Completed 05/31/2016, 06/05/2013 [...] age to complete this topic Care Teams Doctor Of Pharmacy Relationship Specialty Start Date End Date Meenu Irving MD PCP - General Internal Medicine 02/17/19
--- OUTSIDE RECORDS SUMMARY | 2024-08-06 17:14 | XMS_ITS | Encounter Summary ---
Author Organization [facility] Address [address] [place] [address] Care Team Providers Care Bowling Pin Setters Installer Name Role Phone Ashwini Lara MD Primary Care Provider Un available Meenu Irving MD Primary Care Provider Unavail able Ashwini Lara MD Primary Care Provider Un available Encounter Details Date Type Department Care Team Description 05/30/2015 [facility] Medical Records [address] [place] [address] Stamou, Sotirsunita Social History Tobacco Use Types [...] on filedocumented in this encounter Care Teams Bowling Pin Setters Installer Relationship Specialty Start Date End Date Ashwini Lara MD PCP - General Internal Medicine 12/30/1502/16 Meenu Irving MD PCP - General Internal Medicine 02/17/19 Ashwini Lara MD PCP - General 05/20/15 12/29/15 documented as of this encounter
--- OUTSIDE RECORDS SUMMARY | 2024-08-06 17:14 | XMS_ITS | Encounter Summary ---
Author Organization [employer] Address [address] [place] [address] [address] [place] [address] Care Team Providers Care Travel Registered Nurse Oncology Name Role Phone Rojas Cox MD Primary Care Prov ider Lexy Kendall MD Primary Care Provider [phone] Encounter Details Date Type Department Care Team (Late st Contact Info) Description 07/27/2022 Orders Only [facility] [address] [place] [address] Jordyn Soni LPN Social History Tobacco Use [...] Description 10/26/2024 9:00 AM EDT Office Visit [facility] [address] [place] [address] Lexy Kendall MD [address] [place] [address] documented as of this encounter Visit Diagnoses Not on filedocumented in this encounter Care Teams Travel Registered Nurse Oncology Relationship Specialty Start Date End Date Rojas Cox MD [address] [place] [address] PCP - General Internal Medicine 03/09/19 02/11/24 Lexy Kendall MD [address] [place] [address] PCP - General Internal Medicine 02/12/24 documented as of this encounter
== END 2024-08-06 14:58 | disposition home or self-care (01) ==
LOC: HO.HKAS 14:32
PROVIDERS: PCP Internal Medicine; Visit Provider Internal Medicine Nephrology
DX: N18.31 Chronic kidney disease, stage 3a (principal); I10 Essential (primary) hypertension; N28.1 Cyst of kidney, acquired
CPT/HCPCS: 99214

== ENCOUNTER 2024-09-30 08:51 | Outpatient (REF) | payer OTHER, SELFPAY ==
--- OUTSIDE RECORDS SUMMARY | 2024-09-30 09:12 | XMS_ITS | Encounter Summary ---
Author Organization [employer] Address [address] [place] [address] [address] [place] [address] Care Team Providers Care Alteration Workroom Supervisor Name Role Phone Rojas Cox MD Primary Care Prov ider Lexy Kendall MD Primary Care Provider [phone] Encounter Details Date Type Department Care Team (Late st Contact Info) Description 12/04/2022 Orders Only [facility] [address] [place] [address] Rupa Velasco LPN Social History Tobacco Use [...] 9:00 AM EDT Office Visit [facility] [address] [place], [place] [phone] Lexy Kendall MD [address] [place] [address] documented as of this encounter Visit Diagnoses Not on filedocumented in this encounter Additional Health Concerns Assessment Noted Time PHQ-9 Depression Total Score: 18 023 12:45 PM EDT documented as of this encounter Care Teams Alteration Workroom Supervisor Relationship Specialty Start Date End Date Garner Rojas Miller MD [address] [place] [address] PCP - General Internal Medicine 03/09/19 02/11/24 Lexy Kendall MD [address] [place] [address] PCP - General Internal Medicine 02/12/24 documented as of this encounter
[2024-09-30 14:47] LABS: Anion Gap 14 (12-20); Blood Urea Nitrogen 16 mg/dL (9-16); Carbon Dioxide 26 mmol/L (22-29); Chloride 108 mmol/L (96-108); Estimated Glomerular Filt Rate 45; Potassium 3.7 mmol/L (3.3-5.1); Sodium 144 mmol/L (135-145)
== END 2024-09-30 08:52 | disposition home or self-care (01) ==
LOC: HO.CHCLDS 08:51
PROVIDERS: Visit Provider Internal Medicine Nephrology
DX: N28.1 Cyst of kidney, acquired (principal); N18.31 Chronic kidney disease, stage 3a; I10 Essential (primary) hypertension
CPT/HCPCS: 36415; 80051; 82565; 84520

== ENCOUNTER 2025-02-11 15:51 | Outpatient (REF) | payer OTHER, SELFPAY ==
--- OUTSIDE RECORDS SUMMARY | 2025-02-11 14:45 | XMS_ITS | Encounter Summary ---
Author Organization [employer] Address [address] [facility] [address] [place] [address] Care Team Providers Care Visual Design Lead Name Role Phone Lexy Kendall MD Primary Care Provider [phone] Encounter Details Date Type Department Care Team ([facility] st Contact Info) Description 02/11/2025 2:45 PM EDT Office Visit [facility] [address] [place], [place] [phone] Lexy Kendall MD [address] [place] [address] Confusion state (Primary Dx); Urinary tract infection without hematuria, site unspecified; DARRIN (acute kidney injury) Social History Tobacco Use Types Packs/Day Years [...] AM EDT documented as of this encounter Last Filed Vital Signs Vital Sign Reading Time Taken Comments Blood Pressure 137/76 02/11/2025 2:58 PM EDT Pulse 74 02/11/2025 2:58 PM EDT Temperature - - Respiratory Rate 20 02/11/2025 2:58 PM EDT Oxygen Saturation 95% 02/11/2025 2:58 PM EDT Inhaled Oxygen Concentration - - Weight 78.9 kg (174 lb) 02/11/2025 2:58 PM EDT Height 161.3 cm (5' 3.5 ) 02/11/2025 2:58 PM EDT Body Mass Index 30.34 02/11/2025 2:58 PM EDT documented in this encounter Progress Notes * Lexy Kendall MD - 02/11/2025 2:45 PM EDT SUBJECTIVE Tommy Boyd is a 74 y.o. male who presents for No chief complaint on file.. HPI Here for hospital discharge follow-up. Patient was admitted at [facility] on February 04, 2025 and discharged on February 07, 2025. Chief complaint altered mental status and weakness. CT brain: no acute intracranial pathology. He was transferred from the office to the emergency department. Found to have sepsis due to a UTI treated with IV antibiotics with rapid recovery. Was also noted to have an acute kidney injury. Furosemide was held. Acute kidney injury resolved at the time of discharge. Rehab recommended but family preferred to take him home with physical therapy services. Discharge on cefpodoxime 200 mg to take every 12 hours for the following 3 days. Has one more day of treatment left. His symptoms have resolved : no more confusion, NO reported urinary incontinence. Problem List[1] Allergies[2] Medications Ordered Prior to Encounter[3] Review of Systems Constitutional: Negative for chills and fatigue. Eyes: Negative for photophobia, pain and redness. Respiratory: Negative for cough and shortness of breath. Cardiovascular: Negative for leg swelling. Musculoskeletal: Negative for joint swelling and myalgias. Skin: Negative for pallor and rash. OBJECTIVE Vitals: 02/11/25 1458 BP: 137/76 BP Location: Left arm Patient Position: Sitting BP Cuff Size: Adult long Pulse: 74 Resp: 20 SpO2: 95% Weight: 174 lb (78.9 kg) Height: 5' 3.5 (1.613 m) Physical Exam Constitutional: General: He is not in acute distress. Appearance: Normal appearance. He is not ill-appearing, toxic-appearing or diaphoretic. Cardiovascular: Rate and Rhythm: Normal rate. Pulmonary: Effort: Pulmonary effort is normal. Neurological: General: No focal deficit present. Mental Status: He is alert. Motor: No weakness. Gait: Gait normal. Psychiatric: Mood and Affect: Mood normal. Assessment/Plan Assessment/Plan Diagnoses and all orders for this visit: Confusion state Comments: Resolved Advised to complete the course of Cefpodoxime Urinary tract infection without hematuria, site unspecified Comments: Resolved Plan as above to remain well hydrated. Orders: - POCT Glucose - Basic Metabolic Panel; Future DARRIN (acute kidney injury) Comments: BMP If pt is at his baseline, i will resume lasix Nephrology follow up as scheduled. Orders: - POCT Glucose - Basic Metabolic Panel; Future [1] Patient Active Problem List Diagnosis Renal cyst CAD (coronary artery disease) CKD (chronic kidney disease) stage 3, GFR 30-59 ml/min (CMS/HCC) (HCC) Depression Essential hypertension Hyperlipidemia with target LDL less than 70 Hypothyroidism Old myocardial infarction CISCO on CPAP Presence of stent in coronary artery Diabetes mellitus (HCC) Vitamin D deficiency History of tremor Screening for colon cancer Prostate cancer screening Chronic idiopathic constipation Parkinson's disease without dyskinesia, with fluctuating manifestations (CMS/HCC) (HCC) Idiopathic chronic gout of multiple sites with tophus [2] No Known Allergies [3] Current Outpatient Medications on File Prior to Visit Medication Sig Dispense Refill acetaminophen (Tylenol Extra Strength) 500 MG tablet 1 tabs once a day as needed. 30 tablet 0 allopurinol (Zyloprim) 100 MG tablet Take 1 tablet by mouth Once per day. amLODIPine (Norvasc) 10 MG tablet TAKE ONE TABLET DAILY AT NOON 90 tablet 3 Aspirin Adult Low Strength 81 MG EC tablet TAKE ONE TABLET AT NOON 90 tablet 1 Bisacodyl EC 5 MG EC tablet TAKE ONE TABLET EVERY NIGHT AT BEDTIME NEEDED FOR CONSTIPATION 30 tablet 3 carbidopa-levodopa (Sinemet) 25-100 MG tablet Take 0.5 tablets by mouth 3 times daily. cholecalciferol (Vitamin D-3) 25 MCG tablet TAKE ONE TABLET EVERY EVENING 90 tablet 1 citalopram (CeleXA) 40 MG tablet TAKE ONE TABLET DAILY AT NOON 90 tablet 3 colchicine 0.6 MG tablet Take 1 tablet by mouth in the morning. cyanocobalamin (Vitamin B-12) 1000 MCG tablet Take 1 tablet by mouth Once per day. docusate sodium (Colace) 100 MG capsule TAKE ONE CAPSULE IN THE MORNING AND EVENING 60 capsule 6 ezetimibe (Zetia) 10 MG tablet Take 1 tablet by mouth Once per day. furosemide (Lasix) 20 MG tablet Take 1 tablet (20 mg) by mouth Once per day. 90 tablet 6 glucose 4 g chewable tablet Chew 4 tablets (16 g) if needed for low blood sugar. 50 tablet 12 levothyroxine (Synthroid, Levoxyl) 88 MCG tablet TAKE ONE TABLET EVERY MORNING 90 tablet 3 metoprolol succinate XL (Toprol-XL) 25 MG 24 hr tablet TAKE ONE TABLET AT NOON 90 tablet 3 rosuvastatin (Crestor) 40 MG tablet Take 40 mg by mouth Once per day. [DISCONTINUED] furosemide (Lasix) 20 MG tablet TAKE ONE TABLET DAILY AT NOON 90 tablet 3 No current facility-administered medications on file prior to visit. documented in this encounter Plan of Treatment Not on file documented as of this encounter Procedures Procedure Name Priority Date/Time Associated Diagnosis Comments BASIC METABOLIC PANEL Routine 02/11/2025 3:52 PM EDT Urinary tract infection without hematuria, site unspecified DARRIN (acute kidney injury) POCT GLUCOSE Routine 02/11/2025 3:30 PM EDT Urinary tract infection without hematuria, site unspecified DARRIN (acute kidney injury) documented in this encounter Results * (ABNORMAL) Basic Metabolic Panel (02/11/2025 3:52 PM EDT) Sodium 140 135 - 145 mmol/L [facility] Potassium 4.5 3.3 - 5.1 mmol/L [facility] Chloride 106 96 - 108 mmol/L [facility] Carbon Dioxide 26 22 - 29 mmol/L [facility] Anion Gap 13 12 - 20 [facility] Urea Nitrogen (BUN) 13 9 - 16 mg/dL [facility] Creatinine, Serum 1.48(H) 0.5 - 1.4 mg/dL [facility] Estimated Glomerular Filt Rate 46 [facility] Comment:Chronic Kidney Disea se: Estimated GFR < 60 mL/min/1.60m3Rmwllf Kidney Disease: Estimated GFR < 15 mL/min/1.73m2 Glucose 96 60 - 115 mg/dL [facility] Calcium 9.4 8.4 - 10.2 mg/dL [facility] Blood Venous blood specimen / Unknown 02/11/2025 3:52 PM EDT 02/11/2025 5:32 PM EDT Lexy Kendall MD LAB BLOOD ORDERABLES Final Result [facility] [address] [place] [phone] * POCT Glucose (02/11/2025 3:30 PM EDT) Glucose Blood, POC 114 60 - 200 mg/dL [employer] Lot # [id number] Lot# Expiration Date Comment:random Blood Capillary blood specimen / Unknown 02/11/2025 3:30 PM EDT us Thevenin Beauzile MD POINT OF CARE TEST ENTER/ED IT ORDERABLES Final Result documented in this encounter Visit Diagnoses Diagnosis Confusion state- Primary Unspecified psychosis Urinary tract infection without hematuria, site unspecified DARRIN (acute kidney injury) documented in this encounter Additional Health Concerns Assessment Noted Time PHQ-9 Depression Total Score: 6 07/01/19 25 1:51 PM EST documented as of this encounter Care Teams Visual Design Lead Relationship Specialty Start Date End Date Lexy Kendall MD [address] [place] [phone] PCP - General Internal Medicine 02/12/24 documented as of this encounter
[2025-02-11 17:55] LABS: Anion Gap 13 (12-20); Blood Urea Nitrogen 13 mg/dL (9-16); Calcium 9.4 mg/dL (8.4-10.2); Carbon Dioxide 26 mmol/L (22-29); Chloride 106 mmol/L (96-108); Estimated Glomerular Filt Rate 46; Potassium 4.5 mmol/L (3.3-5.1); Sodium 140 mmol/L (135-145)
--- OUTSIDE RECORDS SUMMARY | 2025-02-11 19:32 | XMS_ITS | Encounter Summary ---
Author Organization [employer] Address 75 [facility] 7 [place] [address] Care Team Providers Care Quill Machine Tender Name Role Phone Lexy Kendall MD Primary Care Provider [phone] Reason for Visit * Reason Onset Date Comments Verbal Order 02/08/2025 Encounter Details Date Type Department Care Team ([facility] st Contact Info) Description 02/08/2025 Telephone [facility] MEDICINE [address] [place] [address] Lexy Kendall MD [address] [place] [address] Verbal Order Social History Tobacco Use Types Packs/Day Years [...] encounter Miscellaneous Notes * Telephone Encounter - Janel Haney - 02/08/2025 3:38 PM EDT Tc from Julia at requesting if pt would sign home care orders for [facility].Menswear Salesperson advised that verbal order where given to [facility]. Julia request to forward the message anyway's. Contact Julia at [phone] documented in this encounter Plan of Treatment Not on file documented as of this encounter Visit Diagnoses Not on filedocumented in this encounter Additional Health Concerns Assessment Noted Time PHQ-9 Depression Total Score: 6 07/01/19 25 1:51 PM EST documented as of this encounter Care Teams Quill Machine Tender Relationship Specialty Start Date End Date Lexy Kendall MD [address] [place] [address] PCP - General Internal Medicine 02/12/24 documented as of this encounter
--- OUTSIDE RECORDS SUMMARY | 2025-02-11 19:32 | XMS_ITS | Encounter Summary ---
Author Organization [employer] Address 75 [facility] 7 [place] [address] Care Team Providers Care Application Support Manager Name Role Phone Lexy Kendall MD Primary Care Provider [phone] Reason for Visit * Reason Onset Date Comments Call Back Request 02/09/2025 Encounter Details Date Type Department Care Team ([facility] st Contact Info) Description 02/09/2025 Telephone [facility] MEDICINE [address] [place] [address] Lexy Kendall MD [address] [place] [address] Call Back Request Social History Tobacco Use Types Packs/Day Years [...] encounter Miscellaneous Notes * Telephone Encounter - Marya Fleming - 02/10/2025 12:55 PM EDT Tc from pt daughter Wanda requesting a call back Contact at [phone] * Telephone Encounter - Fátima Hilton LPN - 02/09/2025 1:05 PM EDT TC to Wanda regarding FMLA forms recently submitted on behalf of pt. No answer. LVM. documented in this encounter Plan of Treatment Not on file documented as of this encounter Visit Diagnoses Not on filedocumented in this encounter Additional Health Concerns Assessment Noted Time PHQ-9 Depression Total Score: 6 07/01/19 25 1:51 PM EST documented as of this encounter Care Teams Application Support Manager Relationship Specialty Start Date End Date Lexy Kendall MD [address] [place] [address] PCP - General Internal Medicine 02/12/24 documented as of this encounter
--- OUTSIDE RECORDS SUMMARY | 2025-02-11 19:32 | XMS_ITS | Encounter Summary ---
Author Organization [employer] Address 75 [facility] 7t [place] [address] Care Team Providers Care Modern Dancer Name Role Phone Lexy Kendall MD Primary Care Provider [phone] Encounter Details Date Type Department Care Team (Latest Contact Info) Description 02/11/2025 Travel Social History Tobacco Use Types Packs/Day Years [...] documented as of this encounter Care Teams Modern Dancer Relationship Specialty Start Date End Date Lexy Kendall MD [address] [place] [address] PCP - General Internal Medicine 02/12/24 documented as of this encounter
--- OUTSIDE RECORDS SUMMARY | 2025-02-11 19:32 | XMS_ITS | Encounter Summary ---
Author Organization [employer] Address 75 [facility] 7t [place] [address] Care Team Providers Care Dental Chair Assembler Name Role Phone Rojas Cox MD Primary Care Prov ider Lexy Kendall MD Primary Care Provider [phone] Encounter Details Date Type Department Care Team ([facility] st Contact Info) Description 12/04/2022 Orders Only [facility] CHC MED & PEDS [address] [place], [place] [phone] Rupa Velasco LPN Social History Tobacco Use [...] documented as of this encounter Care Teams Dental Chair Assembler Relationship Specialty Start Date End Date Rojas Cox MD [address] [place] [address] PCP - General Internal Medicine 03/09/19 02/11/24 Lexy Kendall MD [address] [place] [address] PCP - General Internal Medicine 02/12/24 documented as of this encounter
--- OUTSIDE RECORDS SUMMARY | 2025-02-11 19:32 | XMS_ITS | Encounter Summary ---
Author Organization [employer] Address 75 [facility] 7 [place] [address] Care Team Providers Care Director Of Physical Therapy Name Role Phone Lexy Kendall MD Primary Care Provider [phone] Reason for Visit * Reason Onset Date Comments Chart Prep 02/10/2025 Encounter Details Date Type Department Care Team ([facility] st Contact Info) Description 02/10/2025 Telephone [facility] CHC MED & PEDS [address] [place], [place] [phone] Lexy Kendall MD [address] [place] [address] Chart Prep Social History Tobacco Use Types Packs/Day Years [...] encounter Miscellaneous Notes * Telephone Encounter - Felicitas Camp [place] - 02/10/2025 11:27 AM EDT Chart Prep Labs: not applicable Images: done Referrals: complete Vaccines due: Covid, RSV, and Zoster Screenings: not applicable Overdue care gaps: Tobacco documented in this encounter Plan of Treatment Not on file documented as of this encounter Visit Diagnoses Not on filedocumented in this encounter Additional Health Concerns Assessment Noted Time PHQ-9 Depression Total Score: 6 07/01/19 25 1:51 PM EST documented as of this encounter Care Teams Director Of Physical Therapy Relationship Specialty Start Date End Date Lexy Kendall MD [address] [place] [address] PCP - General Internal Medicine 02/12/24 documented as of this encounter
--- OUTSIDE RECORDS SUMMARY | 2025-02-11 19:32 | XMS_ITS | Encounter Summary ---
Author Organization [employer] Address 75 [facility] 7t [place] [address] Care Team Providers Care Sales And Catering Coordinator Name Role Phone Rojas Cox MD Primary Care Prov ider Lexy Kendall MD Primary Care Provider [phone] Encounter Details Date Type Department Care Team (Late st Contact Info) Description 07/27/2022 Orders Only [facility] CHC MED & PEDS [address] [place] [address] Jordyn Soni LPN Social History Tobacco Use [...] on filedocumented in this encounter Care Teams Sales And Catering Coordinator Relationship Specialty Start Date End Date Rojas Cox MD [address] [place] [address] PCP - General Internal Medicine 03/09/19 02/11/24 Lexy Kendall MD [address] [place] [address] PCP - General Internal Medicine 02/12/24 documented as of this encounter
--- OUTSIDE RECORDS SUMMARY | 2025-02-11 19:32 | XMS_ITS | Clinical Summary ---
Author Organization [employer] [facility] ity Address [address] [place] [address] Care Team Providers Care Transportation Equipment Painter Name Role Phone Meenu Irving MD Primary Care Provider Surgical History Surgery Date Site/Laterality Comments OTHER SURGICAL HISTORY PROCEDURE: STENT, CORONARY, S660 COLONOSCOPY 12/26/12 PROCEDURE: HISTORICAL COLONOSCOPY; COMMENT: tics and inflammatory polyp. Repeat in ten yrs. CORONARY ARTERY BYPASS GRAFT 05/2015 PROCEDURE: HISTORICAL CABG Medical History Medical History Date Comments DM (diabetes mellitus) ([facility] V24, [facility] V28) 09/01/2012 DX:DM (diabetes mellitus) ( CC) Non-ST elevation UT (NSTEMI) ([facility] V24, [facility] V28) 09/01/2012 DX:Non-ST elevation UT (NSTE UT) ([facility]) Presence of stent in coronary artery 09/01/2012 [...] Patients (1 - 1-dose 75+ series) 2023 Cholesterol Screening (Lipid Panel) 01/22/2024 Diabetes: Annual Urine Albumin-Creatinine Ratio (uACR) 01/22/2024 Diabetes: Blood Sugar Control Test (HGBA1C) 01/22/2024 Falls Risk Assessment 01/22/2024 Hepatitis C Screening 01/22/2024 Hypertension/CHF/CAD Annual BMP Blood Test 01/22/2024 Social Influencers of Health Screening 01/22/2024 Depression Screening 04/29/2024 COVID-19 Vaccine ( season) 2024 Influenza Vaccine (#1) 2024 9, 03/18/2018, 01/09/2015, Additional history exists Pneumococcal Vaccine: [...] age to complete this topic Care Teams Transportation Equipment Painter Relationship Specialty Start Date End Date Meenu Irving MD PCP - General Internal Medicine 02/17/19
--- OUTSIDE RECORDS SUMMARY | 2025-02-11 19:32 | XMS_ITS | Encounter Summary ---
Author Organization [employer] Address 75 [facility] 7t [place] [address] Care Team Providers Care Balance Weigher Name Role Phone Rojas Cox MD Primary Care Prov ider Lexy Kendall MD Primary Care Provider [phone] Encounter Details Date Type Department Care Team ([facility] st Contact Info) Description 09/18/2022 Orders Only [facility] CHC MED & PEDS [address] [place] [address] Jaye Sommer LPN Social History Tobacco Use [...] documented as of this encounter Care Teams Balance Weigher Relationship Specialty Start Date End Date Rojas Cox MD [address] [place] [address] PCP - General Internal Medicine 03/09/19 02/11/24 Lexy Kendall MD [address] [place] [address] PCP - General Internal Medicine 02/12/24 documented as of this encounter
--- OUTSIDE RECORDS SUMMARY | 2025-02-11 19:32 | XMS_ITS | Encounter Summary ---
Author Organization [employer] Address 75 [facility] 7t [place] [address] Care Team Providers Care Mushroom Laborer Name Role Phone Lexy Kendall MD Primary Care Provider [phone] Encounter Details Date Type Department Care Team ([facility] st Contact Info) Description 03/30/2024 Orders Only [facility] CHC MED & PEDS [address] [place] [address] Provider, MD Katie Social History Tobacco Use [...] Diabetes Eye Exam (02/20/2024 3:45 PM EDT) us Historical Provider HEALTH MAINTENANCE Final Result documented in this encounter Visit Diagnoses Not on filedocumented in this encounter Additional Health Concerns Assessment Noted Time PHQ-9 Depression Total Score: 18 023 12:45 PM EDT documented as of this encounter Care Teams Mushroom Laborer Relationship Specialty Start Date End Date Lexy Kendall MD [address] [place] [address] PCP - General Internal Medicine 02/12/24 documented as of this encounter
--- OUTSIDE RECORDS SUMMARY | 2025-02-11 19:32 | XMS_ITS | Encounter Summary ---
Author Organization [employer] Address 75 [facility] 7t [place] [address] Care Team Providers Care Artillery Officer Name Role Phone Rojas Cox MD Primary Care Prov ider Lexy Kendall MD Primary Care Provider [phone] Reason for Visit * Reason Comments Med Refill Encounter Details Date Type Department Care Team ([facility] st Contact Info) Description 10/13/2023 Refill [facility] CHC MED & PEDS [address] [place], [place] [phone] Irasema Meek MD [address] [place] [address] Social History Tobacco Use Types Packs/Day Years [...] documented as of this encounter Care Teams Artillery Officer Relationship Specialty Start Date End Date Rojas Cox MD [address] [place] [address] PCP - General Internal Medicine 03/09/19 02/11/24 Lexy Kendall MD [address] [place] [address] PCP - General Internal Medicine 02/12/24 documented as of this encounter
--- OUTSIDE RECORDS SUMMARY | 2025-02-11 19:32 | XMS_ITS | Encounter Summary ---
Author Organization [employer] Address 75 [facility] 7t [place] [address] Care Team Providers Care Diesel Truck Crane Operator Name Role Phone Rojas Cox MD Primary Care Prov ider Lexy Kendall MD Primary Care Provider [phone] Reason for Visit * Reason Onset Date Comments Nurse Triage 10/30/2023 Encounter Details Date Type Department Care Team ([facility] st Contact Info) Description 10/30/2023 Telephone C CHC MED & PEDS [address] [place], [place] [phone] Rojas Cox MD [address] [place] [address] Nurse Triage Social History Tobacco Use Types [...] PM EDT Noted. Pt currently admitted at [facility]. * Telephone Encounter - Irma Amaral RN [...] agrees to call EMS for transport to [facility] ER for immediate evaluation. Reviewed home care [...] this outcome Please contact anisa (daughter) at [phone] documented in this encounter Plan of Treatment Not on file documented as of this encounter Visit Diagnoses Not on filedocumented in this encounter Additional Health Concerns Assessment Noted Time PHQ-9 Depression Total Score: 18 023 12:45 PM EDT documented as of this encounter Care Teams Diesel Truck Crane Operator Relationship Specialty Start Date End Date Rojas Cox MD [address] [place] [address] PCP - General Internal Medicine 03/09/19 02/11/24 Lexy Kendall MD [address] [place] [address] PCP - General Internal Medicine 02/12/24 documented as of this encounter
--- OUTSIDE RECORDS SUMMARY | 2025-02-11 19:32 | XMS_ITS | Clinical Summary ---
Author Organization [facility] Address [address] [facility] [address] [place] [address] Care Team Providers Care Hog Trader Name Role Phone Lexy Kendall MD Primary Care Provider [phone] Lexy Kendall MD Unavailable [phone] Social History Tobacco Use Types Packs/Day Years Used Date Smoking Tobacco: Never Assessed Sex and Gender Information Value Date Recorded Sex Assigned at Male 04/08/2024 10:38 AM EST Legal Sex Male 10:35 AM EST Gender Identity Unknown 04/08/2024 10:38 AM EST Sexual Orientation Unknown 04/08/2024 10 :38 AM EST Plan of Treatment Health Maintenance Due Date Last Done Comments Bone Density Scan 1950 Lipid Panel 1950 Diabetes: Retinopathy Screening 1950 Diabetes: Urine Protein Screening 1948 Diabetes: Foot Exam 1960 Medicare Annual Wellness (AWV) 02/27/2014 Zoster Vaccines (2 of 3) 05/03/2016 03/08/2016, 02/27 Depression Screening 04/29/2024 COVID-19 Vaccine ( season) 2024 Influenza Vaccine (#1) 2024 3, 01/15/2022, 02/24/2021, Additional history exists Diabetes: Hemoglobin A1C 03/05/2025 024, 06/21/2021, 03/14/2021, Additional history exists DTaP/Tdap/Td Vaccines (3 - Td or Tdap) 07/11/2025 07/12/2015, 12/02/2012 Pneumococcal Vaccine: 50+ Years Completed 05/31/2016, 05/31/2016, [...] on patient's age to complete this topic Insurance MEDICAID STANDARD MEDICARE PART A AND B Care Teams Hog Trader Relationship Specialty Start Date End Date Lexy Kendall MD [address] [place] [address] PCP - General Absorption Operator 04/08/24 Lexy Kendall MD [address] [place] [address] Absorption Operator 04/08/24
--- OUTSIDE RECORDS SUMMARY | 2025-02-11 19:32 | XMS_ITS | Clinical Summary ---
Author Organization [employer] Address [address] [facility] 7[address] [place] [address] Care Team Providers Care Learning Support Services Director Name Role Phone Lexy Kendall MD Primary Care Provider [phone] Allergies No known active allergies Medications * This document contains information received from the source organization and may not represent a complete record from that organization. rosuvastatin (Crestor) 40 MG tablet Take 40 mg by mouth Once per day. Active carbidopa-levodop a (Sinemet) 25-100 MG tablet Take 0.5 tablets by mouth 3 times daily. 024 Active ezetimibe (Zetia) 10 MG tablet Take 1 tablet by mouth Once per day. 024 Active cyanocobalamin (Vitamin B-12) 1000 MCG tablet Take 1 tablet by mouth Once per day. Active docusate sodium (Colace) 100 MG capsule TAKE ONE CAPSULE IN THE MORNING AND EVENING 60 capsule 6 025 Active citalopram (CeleXA) 40 MG tabletIndications :Major depressive disorder with single episode, in full remission (CMS/HCC) TAKE ONE TABLET DAILY AT NOON 90 tablet 3 025 Active cholecalciferol (Vitamin D-3) 25 MCG tablet TAKE ONE TABLET EVERY EVENING 90 tablet 1 025 Active Aspirin Adult Low Strength 81 MG EC tablet TAKE ONE TABLET AT NOON 90 tablet 1 025 Active amLODIPine (Norvasc) 10 MG tabletIndications :Primary hypertension TAKE ONE TABLET DAILY AT NOON 90 tablet 3 025 Active furosemide (Lasix) 20 MG tabletIndications :Primary hypertension Take 1 tablet (20 mg) by mouth Once per day. 90 tablet 6 Active acetaminophen (Tylenol Extra Strength) 500 MG tabletIndications :Flank pain 1 tabs once a day as needed. 30 tablet Active glucose 4 g chewable tabletIndications :Type 2 diabetes mellitus with stage 3a chronic kidney disease, unspecified whether assisted insulin use (HCC) Chew 4 tablets (16 g) if needed for low blood sugar. 50 tablet 12 025 2025 Active Bisacodyl EC 5 MG EC tabletIndications :Chronic idiopathic constipation TAKE ONE TABLET EVERY NIGHT AT BEDTIME NEEDED FOR CONSTIPATION 30 tablet 3 Active levothyroxine (Synthroid, Levoxyl) 88 MCG tabletIndications :Acquired hypothyroidism TAKE ONE TABLET EVERY MORNING 90 tablet 3 025 Active metoprolol succinate XL (Toprol-XL) 25 MG 24 hr tablet TAKE ONE TABLET AT NOON 90 tablet 3 Active allopurinol (Zyloprim) 100 MG tablet Take 1 tablet by mouth Once per day. Active colchicine 0.6 MG tablet Take 1 tablet by mouth in the morning. Active metoprolol succinate XL (Toprol-XL) 25 MG 24 hr tablet TAKE ONE TABLET AT NOON 90 tablet 3 024 2024 Discontinued colchicine 0.6 MG tablet Take 1 tablet (0.6 mg) by mouth Once per day. 30 tablet 11 024 2024 allopurinol (Zyloprim) 100 MG tablet Take 1 tablet (100 mg) by mouth Once per day. 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 Will leave order to be repeated in [...] will be refer for OP services in [place] per his request. Patient with lack of [...] informal support. PLAN: 1. Follow up with [facility]: Not recommended for follow-up 2. Patient goal [...] Encounters Date Type Department Care Team Description 02/11/2025 2:45 PM EDT Office Visit [facility] [address] [place] [address] Lexy Kendall MD Confusion state (Primary Dx); Urinary tract infection without hematuria, site unspecified; DARRIN (acute kidney injury) 02/11/2025 Travel 02/10/[address] [address] Lexy Kendall MD 02/10/2025 Telephone [facility] [address] [place] [address] Lexy Kendall MD Chart Prep 02/09/[address] [address] Lexy Kendall MD Call Back Request 02/08/[address] [address] Lexy Kendall MD Verbal Order 02/08/2025 Telephone [facility] [address] [place] [address] Lexy Kendall MD homecare orders 02/04/2025 10:30 AM EDT Office Visit [facility] [address] [place] [address] Lexy Kendall MD Confusion state (Primary Dx); Type 2 diabetes mellitus with stage 3a chronic kidney disease, unspecified whether watermaster insulin use (HCC); Urge incontinence of urine 02/04/2025 Telephone [facility] [address] [place] [address] Lexy Kendall MD Prior Authorization 02/04/2025 Travel 01/16/2025 Refill [facility] [address] [place] [address] Rojas Cox MD 12/10/2024 Refill [facility] [address] [place] [address] Rojas Cox MD Acquired hypothyroidism 11/17/2024 Refill [facility] [address] [place] [address] Lexy Kendall MD Chronic idiopathic constipation from Last 3 Months Immunizations Immunization Administration Dates Next Due Hep B, adult 11/21/2021,08/29/2021,08/01/2021 Influenza High-dose Quadriva lent Preservative Free 02/05/2023,01/15/2022,02/24/2021,02/16 Influenza Injectable Quadriv alant Preservative Free IIV4 MDCK 03/18/2018,03/04/2017 Influenza, High Dose Seasona l, Preservative Free 02/06/2025,01/16/2019 Influenza, IIV3, injectable 02/07/2016, 5,03/05/2013 Influenza, Unspecified [...] your housing situation today? I have lolis sage 06/30/[address] you li [...] Pulse 74 02/11/2025 2:58 PM EDT Temperature 36.8 C (98.2 F) 10/26/2024 11:47 AM EDT Respiratory Rate 20 02/11/2025 2:58 PM EDT Oxygen Saturation 95% 02/11/2025 2:58 PM EDT Inhaled Oxygen Concentration - - Weight 78.9 kg (174 lb) 02/11/2025 2:58 PM EDT Height 161.3 cm (5' 3.5 ) 02/11/2025 2:58 PM EDT Body Mass Index 30.34 02/11/2025 2:58 PM EDT Plan of Treatment Health Maintenance Due Date Last Done Comments Zoster Vaccines (2 of 3) 05/03/2016 03/08/2016, 02/27 RSV Patients and Patients Aged 60 years or older (1 - 1-dose 75+ series) 2023 COVID-19 Vaccine ( season) 2024 05/08/2021, 11/09/2020, 10/19/2020 Lipid Panel 01/26/2025 01/27/2024, 01/27, 10/05/2022, Additional history exists Alcohol/Substance Use Screening 06/30/2025 06/30/2024 Depression Screening 06/30/2025 06/30/2024, 07/01/19 SDOH Screening 06/30/2025 06/30/2024 DTaP/Tdap/Td Vaccines (3 - Td or Tdap) 07/11/2025 07/12/2015, 12/02/2012 Diabetes: Hemoglobin A1C 08/05/2025 025, 10/26/2024, 03/05/2024, Additional history exists Diabetes: Foot Exam 10/26/2025 10/26/2024, 01/27/2024, 10/01/2023, Additional history exists Eye Exam 12/03/2025 12/03/2024, 02/20/2024 Tobacco Screening 02/11/2026 02/11/2025 Pneumococcal Vaccine: 50+ Years Completed 05/31/2016, 05/31/2016, 08/11/2015, Additional history exists Hepatitis B Vaccines Completed 11/21/2021, 08/29/2021, 08/01/2021 Hepatitis C Screening Completed 02/05/2023 Influenza Vaccine Completed 02/06/2025, , 02/05/2023, Additional history exists HIB Vaccines Aged Out No longer eligi [...] DARRIN (acute kidney injury) POCT GLUCOSE Routine 02/04/2025 2:38 PM EDT Type 2 diabetes mellitus with stage 3a chronic kidney disease, unspecified whether watermaster insulin use (HCC) POCT GLYCATED HEMOGLOBIN, TOTAL Routine 02/04/2025 2:37 PM EDT Type 2 diabetes mellitus with stage 3a chronic kidney disease, unspecified whether watermaster insulin use (HCC) HM DIABETES EYE EXAM Routine 02/20/2024 3:45 PM EDT LIPID PANEL, STANDARD Routine 01/27/2024 4:11 PM EDT Type 2 diabetes mellitus with stage 3a chronic kidney disease, unspecified whether watermaster insulin use (CMS/HCC) HEPATITIS C AB W/REFL TO HCV RNA, QN, PCR Routine 02/05/2023 12:40 PM EDT Type 2 diabetes mellitus with stage 3a chronic kidney disease, unspecified whether watermaster insulin use (CMS/HCC) from Last 3 Months or Most Recently Relevant to Health Maintenance Results * (ABNORMAL) Basic Metabolic Panel (02/11/2025 3:52 PM EDT) Sodium 140 135 - 145 mmol/L [facility] Potassium 4.5 3.3 - 5.1 mmol/L [facility] Chloride 106 96 - 108 mmol/L [facility] Carbon Dioxide 26 22 - 29 mmol/L [facility] Anion Gap 13 12 - 20 [facility] Urea Nitrogen (BUN) 13 9 - 16 mg/dL [facility] Creatinine, Serum 1.48(H) 0.5 - 1.4 mg/dL [facility] Estimated Glomerular Filt Rate 46 [facility] Comment:Chronic Kidney Disea se: Estimated GFR < 60 mL/min/1.04v8Fidltr Kidney Disease: Estimated GFR < 15 mL/min/1.73m2 Glucose 96 60 - 115 mg/dL [facility] Calcium 9.4 8.4 - 10.2 mg/dL [facility] Blood Venous blood specimen / Unknown 02/11/2025 3:52 PM EDT 02/11/2025 5:32 PM EDT Lexy Kendall MD LAB BLOOD ORDERABLES Final Result [facility] [address] [place] [phone] [phone] * POCT Glucose (02/11/2025 3:30 PM EDT) Only the most recent of2 resultswithin the time period is included. Glucose Blood, POC 114 60 - 200 mg/dL [employer] Media Lot # [id number] Lot# Expiration Date Comment:random Blood Capillary blood specimen / Unknown 02/11/2025 3:30 PM EDT Lexy Kendall MD POINT OF CARE TEST ENTER/ED IT ORDERABLES Final Result * (ABNORMAL) POCT Hgb A1c (02/04/2025 2:37 PM EDT) Hemoglobin A1C 6.4(A) 4.0 - 5.7 % QC Media Lot # [id number] Lot# Expiration Date Blood 02/04/2025 2:37 PM EDT Lexy Kendall MD POINT OF CARE TEST ENTER/ED IT ORDERABLES Final Result * Diabetes Eye Exam (02/20/2024 3:45 PM EDT) Historical Provider HEALTH MAINTENANCE Final Result * (ABNORMAL) Lipid Panel, Standard (01/27/2024 4:11 PM EDT) Triglycerides 313(H) <150 mg/dL [facility] Comment:Desirable Triglyceri de: less than 150 mg/dLBorderline High Triglyceride 150-199 mg/dLHigh Triglyceride: 200-499 mg/dLVery High Triglyceride: greater than or equal to 5OO mg/dL Cholesterol 200(H) <200 mg/dL [facility] Comment:Desirable Cholestero l: less than 200 mg/dLBorderline High Cholesterol: 200-239 mg/dLHigh Cholesterol: greater than 239 mg/dL LDL Cholesterol Calculated 100(H) <100 mg/dL [facility] Comment:Desirable LDL: less than 100 mg/dLNear Optimal/Above Optimal LDL: 110- 129 mg/dLBorderline High LDL: 130-159 mg/dLHigh LDL: 160-189 mg/dLVery High LDL: greater than or equal to 190 mg/dL HDL Cholesterol 38(L) >40 mg/dL [facility] Comment:Desirable HDL: great er than 40 mg/dL Note: This HDL assay may give artificially low results in patients with liver disease. Blood Venous blood specimen / Unknown 01/27/2024 4:11 PM EDT 01/27/2024 5:38 PM EDT Rojas Miller MD LAB BLOOD ORDERABL ES Final Result Performing Organization Address [facility] Co de Phone Number [facility] [address] [place] [phone] * Hepatitis C Antibody with Reflex to HCV, RNA, Quantitative, Real-Time PCR (02/05/2023 12:40 PM EDT) Hepatitis C Antibody Nonreactive Nonreactive [facility] Comment:Antibodies to HCV no t detected; does not exclude early acuteHCV infection. Blood Venous blood specimen / Unknown 02/05/2023 12:40 PM EDT 02/05/2023 2:06 PM EDT Rojas Miller MD LAB BLOOD ORDERABL ES Final Result Performing Organization Address City/[facility]/ZIP Co de Phone Number [facility] [address] [place] [phone] from Last 3 Months or Most Recently Relevant to Health Maintenance Insurance [employer] (HMO D-SNP) [place] [id number] Care Teams Learning Support Services Director Relationship Specialty Start Date End Date Lexy Kendall MD [address] [place] [phone] PCP - General Internal Medicine 02/12/24
--- OUTSIDE RECORDS SUMMARY | 2025-02-11 19:32 | XMS_ITS | Encounter Summary ---
Author Organization [employer] Address [address] [facility] 7 [place] [address] Care Team Providers Care Luster Repairer Name Role Phone Lexy Kendall MD Primary Care Provider [phone] Reason for Visit * Reason Onset Date Comments homecare orders 02/08/2025 Encounter Details Date Type Department Care Team ([facility] st Contact Info) Description 02/08/2025 Telephone [facility] [address] [place], [place] [phone] Lexy Kendall MD [address] [place] [address] homecare orders Social History Tobacco Use Types Packs/Day Years [...] encounter Miscellaneous Notes * Telephone Encounter - Vera Grant RN - 02/08/2025 9:48 AM EDT TC to pt daughter. HDF scheduled for 02/11/25 with PCP. Notes printed out to be scanned to chart. * Telephone Encounter - Vera Grant RN - 02/08/2025 9:40 AM EDT [facility] given for [facility] and [facility]. * Telephone Encounter - Marya Fleming - 02/08/2025 8:39 AM EDT Tc from Ofelia at [facility] requesting if pt would sign home care orders for group home and PT Contact Ofelia at [phone] opt 2 documented in this encounter Plan of Treatment Not on file documented as of this encounter Visit Diagnoses Not on filedocumented in this encounter Additional Health Concerns Assessment Noted Time PHQ-9 Depression Total Score: 6 07/01/19 1:51 PM EST documented as of this encounter Care Teams Luster Repairer Relationship Specialty Start Date End Date Lexy Kendall MD [address] [place] [phone] PCP - General Internal Medicine 02/12/24 documented as of this encounter
--- OUTSIDE RECORDS SUMMARY | 2025-02-11 19:32 | XMS_ITS | Encounter Summary ---
Author Organization [employer] Address [address] [facility] 7t [place] [address] Care Team Providers Care Bilingual Sales Consultant Name Role Phone Lexy Kendall MD Primary Care Provider [phone] Encounter Details Date Type Department Care Team ([facility] st Contact Info) Description 02/10/2025 Telephone [facility] [address] [place] [address] Lexy Kendall MD [address] [place] [address] Social History Tobacco Use Types Packs/Day Years [...] encounter Miscellaneous Notes * Telephone Encounter - Fátima Hilton LPN - 02/10/2025 1:34 PM EDT Return call to pt.'s daughter, Wanda Neves regarding FMLA on behalf of her father. Nurse was able toget all information needed to complete FMLA forms and have sent out to provider for signing. documented in this encounter Plan of Treatment Not on file documented as of this encounter Visit Diagnoses Not on filedocumented in this encounter Additional Health Concerns Assessment Noted Time PHQ-9 Depression Total Score: 6 07/01/19 25 1:51 PM EST documented as of this encounter Care Teams Bilingual Sales Consultant Relationship Specialty Start Date End Date Lexy Kendall MD [address] [place] [phone] PCP - General Internal Medicine 02/12/24 documented as of this encounter
== END 2025-02-11 15:52 | disposition home or self-care (01) ==
LOC: HO.CHCLDS 15:51
PROVIDERS: Visit Provider Internal Medicine
DX: N39.0 Urinary tract infection, site not specified (principal); N17.9 Acute kidney failure, unspecified
CPT/HCPCS: 36415; 80048

== ENCOUNTER 2025-04-08 15:20 | Outpatient (AMB) | payer OTHER, SELFPAY ==
--- NOTE | 2025-04-08 15:38 | HO.NEPHOV ---
Vital Signs 04/08/25 15:40 Height 5 ft 4 in Weight 174 lb 4 oz BMI 29.9 BP 130/70 Blood Pressure Location Lt brachial Position Sitting Pulse 74 Pulse Source Pulse Oximeter Pulse Oximetry (%) 97 Oxygen Delivery Method Room Air Intake Visit Reasons: 6 MO FU-Conf w/Anisa daughter Cnc Cutting Operator Required: Yes Cnc Cutting Operator Language: Athletic Turf Worker Services: Cnc Cutting Operator Offered & Declined ([facility] Cnc Cutting Operator services refused ) Accompanied by: Daughter Allergies No Known Allergies Allergy (Verified 04/08/25 15:39) HPI Comments Details: He was seen in follow up for CKD. He is a 75 year old Lao speaking gentleman accompanied by daughter and family during this encounter. He has CAD & is S/P cardiac surgery but denies carotid stenosis, CVA, CHF or PAD. He has dyslipidemia as well as hyperuricemia. His BP is well controlled on medications. He denies being a diabetic or having retinopathy or proteinuria. He denies new bone pain, back pain, H/O paraproteinemia or any malignancy. He has no sensori neural deafness, microscopic hematuria or renal calculi. He does not take excess NSAID's. He has no epistaxis, photosensitivity, skin rashes, sinusitis or edema. His last serum creatinine is close to baseline.He has H/O complex renal cysts [facility] Medical History Screening for colon cancer Prostate cancer screening Chronic idiopathic constipation History of tremor Vitamin D deficiency Diabetes mellitus CISCO on CPAP Old myocardial infarction Hypothyroidism Hyperlipidemia with target LDL less than 70 Essential hypertension Depression CKD (chronic kidney disease) CAD (coronary artery disease) Renal cyst Surgical History H/O heart surgery Presence of stent in coronary artery Family History Mother Hypertension Diabetes Heart disease Social History Alcohol intake: never Patient Tobacco Use Status: Former Tobacco user Review of Systems Const All systems reviewed & are unremarkable except as noted in HPI and below Physical Exam Vital Signs: Last Vital Signs Pulse 74 04/08/25 15:40 BP 130/70 04/08/25 15:40 Pulse Ox 97 04/08/25 15:40 Oxygen Delivery Method Room Air 04/08/25 15:40 BMI result Body Mass Index 29.9 Const General: comfortable and no acute distress Orientation/consciousness: patient oriented x3 HEENT Head: Yes normocephalic Mouth: Normal oral and palatal mucosa present Eyes EOM: EOMs intact bilaterally Neck Neck: Yes supple Resp Auscultation: clear to auscultation bilaterally Cardio Jugular venous distension: no JVD Rate: regular rate GI Palpation (GI): Soft to palpation Auscultation: normal bowel sounds General: Yes no CVA tenderness Back/Spine/Pelvis Back: no CVA tenderness Skin General skin exam: no rashes or lesions noted Neuro General: patient oriented x3 and moves all extremities Extrem General: Yes no pedal edema Results Reviewed Nephrology Results: Hgb, (14.0-18.0) 14.1 g/dl 05/07/24 WBC, (4.8-10.8) 8.0 X10*3/uL 05/07/24 Plt Count, (160-400) 381 X10*3/uL 05/07/24 Sodium, (135-145) 140 mmol/L 02/11/25 Potassium, (3.3-5.1) 4.5 mmol/L Δ 02/11/25 Chloride, (96-108) 106 mmol/L 02/11/25 Carbon Dioxide, (22-29) 26 mmol/L 02/11/25 BUN, (9-16) 13 mg/dL 02/11/25 Creatinine, (0.5-1.4) 1.48 mg/dL H 02/11/25 Calcium, (8.4-10.2) 9.4 mg/dL 02/11/25 Phosphorus, (2.7-4.5) 3.8 mg/dL 05/07/24 PTH Intact, (8.7-77.1) 127.4 pg/mL H 05/07/24 Urine Creatinine 66.26 mg/dL 08/06/24 Protein/Creatinin Ratio, (<0.2) 0.33 H 08/06/24 Renal US 04/30/24 Assessment & Plan Assessment & Plan (1) Complex renal cyst: Code(s): N28.1 - Cyst of kidney, acquired Category: Medical (2) CKD stage 3a, GFR 45-59 ml/min: Code(s): N18.31 - Chronic kidney disease, stage 3a Category: Medical (3) Hypertension: Code(s): I10 - Essential (primary) hypertension Category: Medical Qualifiers: Hypertension type: primary hypertension Qualified Code(s): I10 - Essential (primary) hypertension Plan Tommy most likely has CKD due to vascular disease. He has CAD & has H/O CABG. His urine output is good. He does not take NSAID's. His blood pressure is at goal. He is not on ACEI/ARB. He has complex renal cysts with one lesion looking suspicious . He follows with [facility] and is seeking a second opinion ( referred). He likely will need SGLT2 i. All these were discussed in detail. Answered all questions Orders: Orders Electrolytes 3 Months I10 - Essential (primary) hypertension, N18.31 - Chronic kidney disease, stage 3a, N28.1 - Cyst of kidney, acquired Blood Urea Nitrogen 3 Months I10 - Essential (primary) hypertension, N18.31 - Chronic kidney disease, stage 3a, N28.1 - Cyst of kidney, acquired Protein Creatinine Ratio, Ur 3 Months I10 - Essential (primary) hypertension, N18.31 - Chronic kidney disease, stage 3a, N28.1 - Cyst of kidney, acquired UA and rflx microscopic 3 Months I10 - Essential (primary) hypertension, N18.31 - Chronic kidney disease, stage 3a, N28.1 - Cyst of kidney, acquired Creatinine 3 Months I10 - Essential (primary) hypertension, N18.31 - Chronic kidney disease, stage 3a, N28.1 - Cyst of kidney, acquired Referrals Urology Referral N28.1 - Cyst of kidney, acquired Coding Level of Care Code Est Pt Level 4 (74893) Diagnoses Complex renal cyst N28.1 CKD stage 3a, GFR 45-59 ml/min N18.31 Primary hypertension I10 Hypertension type: primary hypertension
[2025-04-08 15:40] VITALS: BP 130/70; PULSE 74; O2SAT 97; BMI 29.9
--- OUTSIDE RECORDS SUMMARY | 2025-04-08 22:56 | XMS_ITS | Encounter Summary ---
Author Organization [employer] Address [address] [facility] 7t [place] [address] Care Team Providers Care Gas And Oil Servicer Name Role Phone Lexy Kendall MD Primary Care Provider [phone] Encounter Details Date Type Department Care Team ([facility] st Contact Info) Description 03/30/2024 Orders Only [facility] [address] [place] [address] Provider, MD Katie Social History Tobacco Use [...] Noted Time PHQ-9 Depression Total Score: 18 05 023 12:45 PM EDT documented as of this encounter Care Teams Gas And Oil Servicer Relationship Specialty Start Date End Date Lexy Kendall MD [address] [place] [phone] PCP - General Internal Medicine 02/12/24 [facility] 02/09/25 03/09/25 documented as of this encounter
--- OUTSIDE RECORDS SUMMARY | 2025-04-08 22:56 | XMS_ITS | Encounter Summary ---
Author Organization [employer] Address [address] [facility] 7t [place] [address] Care Team Providers Care Detail Drafter Name Role Phone Rojas Cox MD Primary Care Prov ider Lexy Kendall MD Primary Care Provider [phone] Encounter Details Date Type Department Care Team ([facility] st Contact Info) Description 07/27/2022 Orders Only [facility] [address] [place] [address] Jordyn Soni LPN Social History Tobacco Use [...] on filedocumented in this encounter Care Teams Detail Drafter Relationship Specialty Start Date End Date Rojas Cox MD [address] [place] [address] PCP - General Internal Medicine 03/09/19 02/11/24 Lexy Kendall MD [address] [place] [address] PCP - General Internal Medicine [facility] 03/09/25 documented as of this encounter
--- OUTSIDE RECORDS SUMMARY | 2025-04-08 22:56 | XMS_ITS | Encounter Summary ---
Author Organization [employer] Address [address] [facility] 7 [place] [address] Care Team Providers Care Chilling Hood Operator Name Role Phone Lexy Kendall MD Primary Care Provider [phone] Reason for Visit * Reason Onset Date Comments Verbal Order 02/08/2025 Encounter Details Date Type Department Care Team ([facility] st Contact Info) Description 02/08/2025 Telephone [facility] [address] [place] [address] Lexy Kendall MD [address] [place] [phone] Verbal Order Social History Tobacco Use Types [...] pt would sign home care orders for halfway.Securities Lending Trader advised that verbal order where given to [facility]. Julia request to forward the message anyway's. Contact Julia at [phone] documented in this encounter Plan of Treatment Not on file documented as of this encounter Visit Diagnoses Not on filedocumented in this encounter Additional Health Concerns Assessment Noted Time PHQ-9 Depression Total Score: 6 07/01/19 25 1:51 PM EST documented as of this encounter Care Teams Chilling Hood Operator Relationship Specialty Start Date End Date Lexy Kendall MD [address] [place] [phone] PCP - General Internal Medicine 02/12/24 [facility] 02/09/25 03/09/25 documented as of this encounter
--- OUTSIDE RECORDS SUMMARY | 2025-04-08 22:56 | XMS_ITS | Encounter Summary ---
Author Organization [employer] Address 75 [facility] 7t [place] [address] Care Team Providers Care Molder Setter Name Role Phone Rojas Cox MD Primary Care Prov ider Lexy Kendall MD Primary Care Provider [phone] Encounter Details Date Type Department Care Team ([facility] st Contact Info) Description 12/04/2022 Orders Only [facility] CHC MED & PEDS [address] [place] [address] Rupa Velasco LPN Social History Tobacco Use [...] documented as of this encounter Care Teams Molder Setter Relationship Specialty Start Date End Date Rojas Cox MD [address] [place] [address] PCP - General Internal Medicine 03/09/19 02/11/24 Lexy Kendall MD [address] [place] [address] PCP - General Internal Medicine 02/12/24 [facility] 02/09/25 03/09/25 documented as of this encounter
--- OUTSIDE RECORDS SUMMARY | 2025-04-08 22:56 | XMS_ITS | Encounter Summary ---
Author Organization [employer] Address 75 [facility] 7t [place] [address] Care Team Providers Care Geospatial Applications Developer Name Role Phone Rojas Cox MD Primary Care Prov ider Lexy Kendall MD Primary Care Provider [phone] Encounter Details Date Type Department Care Team ([facility] st Contact Info) Description 09/18/2022 Orders Only [facility] CHC MED & PEDS [address] [place] [address] Jaye Sommer LPN Social History Tobacco Use [...] documented as of this encounter Care Teams Geospatial Applications Developer Relationship Specialty Start Date End Date Rojas Cox MD [address] [place] [address] PCP - General Internal Medicine 03/09/19 02/11/24 Lexy Kendall MD [address] [place] [address] PCP - General Internal Medicine 02/12/24 [facility] 02/09/25 03/09/25 documented as of this encounter
--- OUTSIDE RECORDS SUMMARY | 2025-04-08 22:56 | XMS_ITS | Clinical Summary ---
Author Organization [employer] [facility] ity Address [address] [place] [address] Care Team Providers Care Solaris Administrator Name Role Phone Meenu Irving MD Primary Care Provider Surgical History Surgery Date Site/Laterality Comments OTHER SURGICAL HISTORY PROCEDURE: STENT, CORONARY, S660 COLONOSCOPY 12/26/12 PROCEDURE: HISTORICAL COLONOSCOPY; COMMENT: tics and inflammatory polyp. Repeat in ten yrs. CORONARY ARTERY BYPASS GRAFT 05/2015 PROCEDURE: HISTORICAL CABG Medical History Medical History Date Comments DM (diabetes mellitus) ([facility] V24, [facility] V28) 09/01/2012 DX:DM (diabetes mellitus) ( CC) Non-ST elevation NE (NSTEMI) ([facility] V24, [facility] V28) 09/01/2012 DX:Non-ST elevation NE (NSTE NE) ([facility]) Presence of stent in coronary artery 09/01/2012 [...] on file Sexual Orientation Not on file Plan of Treatment Health Maintenance Due Date [...] age to complete this topic Care Teams Solaris Administrator Relationship Specialty Start Date End Date Meenu Irving MD PCP - General Internal Medicine 02/17/19
--- OUTSIDE RECORDS SUMMARY | 2025-04-08 22:56 | XMS_ITS | Encounter Summary ---
Author Organization [employer] Address 75 [facility] 7t [place] [address] Care Team Providers Care Information Assurance Specialist Name Role Phone Rojas Cox MD Primary Care Prov ider Lexy Kendall MD Primary Care Provider [phone] Reason for Visit * Reason Comments Med Refill Encounter Details Date Type Department Care Team ([facility] st Contact Info) Description 10/13/2023 Refill [facility] CHC MED & PEDS [address] [place], [place] [phone] Irasema Meek MD [address] [place] [address] Social History Tobacco Use Types Packs/Day Years [...] documented as of this encounter Care Teams Information Assurance Specialist Relationship Specialty Start Date End Date Rojas Cox MD [address] [place] [address] PCP - General Internal Medicine 03/09/19 02/11/24 Lexy Kendall MD [address] [place] [address] PCP - General Internal Medicine 02[facility] 02[facility] 03/09/25 documented as of this encounter
--- OUTSIDE RECORDS SUMMARY | 2025-04-08 22:56 | XMS_ITS | Encounter Summary ---
Author Organization [employer] Address [address] [facility] 7t [place] [address] Care Team Providers Care Customs Manager Name Role Phone Rojas Cox MD Primary Care Prov ider Lexy Kendall MD Primary Care Provider [phone] Reason for Visit * Reason Onset Date Comments Nurse Triage 10/30/2023 Encounter Details Date Type Department Care Team ([facility] st Contact Info) Description 10/30/2023 Telephone C CHC MED & PEDS [address] [place], [place] [phone] Rojas Cox MD [address] [place] [address] Nurse Triage Social History Tobacco Use Types [...] PM EDT Noted. Pt currently admitted at [facility]. * Telephone Encounter - Irma Amaral RN [...] agrees to call EMS for transport to [facility] ER for immediate evaluation. Reviewed home care [...] this outcome Please contact anisa (daughter) at [phone] documented in this encounter Plan of Treatment Not on file documented as of this encounter Visit Diagnoses Not on filedocumented in this encounter Additional Health Concerns Assessment Noted Time PHQ-9 Depression Total Score: 18 023 12:45 PM EDT documented as of this encounter Care Teams Customs Manager Relationship Specialty Start Date End Date Rojas Cox MD [address] [place] [address] PCP - General Internal Medicine 03/09/19 02/11/24 Lexy Kendall MD [address] [place] [address] PCP - General Internal Medicine 02/12/24 [facility] 02/09[facility] 03/09/25 documented as of this encounter
--- OUTSIDE RECORDS SUMMARY | 2025-04-08 22:56 | XMS_ITS | Clinical Summary ---
Author Organization [employer] Address 75 [facility] 7t [place] [address] Care Team Providers Care Hospitality Coordinator Name Role Phone Lexy Kendall MD Primary Care Provider [phone] Allergies No known active allergies Medications * [...] TABLET DAILY AT NOON 90 tablet 3 03/12/20 25 2:44 PM EST 025 Active amLODIPine (Norvasc) 10 MG tabletIndications :Primary hypertension TAKE ONE TABLET DAILY AT NOON 90 tablet 3 03/12/20 25 2:44 PM EST 025 Active furosemide (Lasix) 20 MG tabletIndications :Primary hypertension Take 1 tablet (20 mg) by mouth Once per day. 90 tablet 6 03/12/20 25 2:44 PM EST 025 Active acetaminophen (Tylenol Extra Strength) 500 MG tabletIndications :Flank pain 1 tabs once a day as needed. 30 tablet Active glucose 4 g chewable tabletIndications :Type 2 diabetes mellitus with stage 3a chronic kidney disease, unspecified whether intermediate insulin use (HCC) Chew 4 tablets (16 g) if needed for low blood sugar. 50 tablet 12 025 2025 Active Bisacodyl EC 5 MG EC tabletIndications :Chronic idiopathic constipation TAKE ONE TABLET EVERY NIGHT AT BEDTIME NEEDED FOR CONSTIPATION 30 tablet 3 03/12/20 25 2:44 PM EST 025 Active levothyroxine (Synthroid, Levoxyl) 88 MCG tabletIndications :Acquired hypothyroidism TAKE ONE TABLET EVERY MORNING 90 tablet 3 025 Active metoprolol succinate XL (Toprol-XL) 25 MG 24 hr tablet TAKE ONE TABLET AT NOON 90 tablet 3 025 Active colchicine 0.6 MG tablet TAKE ONE TABLET EVERY MORNING 30 tablet 11 03/12/20 25 2:44 PM EST 025 Active allopurinol (Zyloprim) 100 MG tablet TAKE ONE TABLET EVERY MORNING 30 tablet 11 03/12/20 25 2:44 PM EST 025 Active Aspirin Adult Low Strength 81 MG EC tablet TAKE ONE TABLET EVERY AT NOON 90 tablet 1 025 Active cholecalciferol (Vitamin D-3) 25 MCG tablet TAKE ONE TABLET EVERY EVENING 90 tablet 1 025 Active cholecalciferol (Vitamin D-3) 25 MCG tablet TAKE ONE TABLET EVERY EVENING 90 tablet 1 025 2024 Discontinued Aspirin Adult Low Strength 81 MG EC tablet TAKE ONE TABLET AT NOON 90 tablet 1 025 2024 Discontinued Active Problems Problem Noted Date Diagnosed Date 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 Will leave order to be repeated in [...] will be refer for OP services in [place] per his request. Patient with lack of [...] support. PLAN: 1. Follow up with [facility]: Not recommended for follow-up 2. Patient goal [...] Encounters Date Type Department Care Team Description 03/24/2025 Refill [facility] [address] [place] [address] Lexy Kendall MD 02/24/[address] [address] Lexy Kendall MD 02/19/[address] [facility] [address] [place] [address] Irasema Meek MD 02/12/2025 Results Follow-Up [facility] [address] [place] [address] Vera Grant RN POCT Glucose, Basic Metabolic Panel 02/11/2025 2:45 PM EDT Office Visit [facility] [address] [place] [address] Lexy Kendall MD Confusion state (Primary Dx); Urinary tract infection without hematuria, site unspecified; DARRIN (acute kidney injury) 02/11/2025 Travel 02/10/[address] [address] Lexy Kendall MD 02/10/2025 Telephone [facility] [address] [place] [address] Lexy Kendall MD Chart Prep 02/09/[address] [address] Lexy Kendall MD Call Back Request 02/08/[address] [address] Lexy Kendall MD Verbal Order 02/08/2025 Telephone [facility] [address] [place] [address] Lexy Kendall MD homecare orders 02/04/2025 10:30 AM EDT Office Visit [facility] [address] [place] [address] Lexy Kendall MD Confusion state (Primary Dx); Type 2 diabetes mellitus with stage 3a chronic kidney disease, unspecified whether intermediate insulin use (HCC); Urge incontinence of urine 02/04/2025 Telephone [facility] [address] [place] [address] Lexy Kendall MD Prior Authorization 02/04/2025 Travel 01/16/2025 Refill [facility] [address] [place] [address] Rojas Cox MD from Last 3 Months Immunizations Immunization Administration [...] the past 12 months, has t he [employer], gas, oil or water company threatened to [...] Completed 05/31/2016, 05/31/2016, 08/11/2015, Additional history exists FIT Discontinued 06/22/2021 Colonoscopy Discontinued 11/01/2021 Colorectal Cancer Screening Discontinued Hepatitis B Vaccines Completed 11/21/2021, 08/29/2021, 08/01/2021 Hepatitis C Screening Completed 02/05/2023 Influenza Vaccine Completed 02/06/2025, , 02/05/2023, Additional history exists CT Colonography Discontinued FIT DNA/Cologuard Discontinued FOBT Discontinued HIB Vaccines Aged Out No longer eligi [...] on patient's age to complete this topic Sigmoidoscopy Discontinued Procedures Procedure Name Priority Date/Time Associated Diagnosis [...] stage 3a chronic kidney disease, unspecified whether intermediate insulin use (HCC) POCT GLYCATED HEMOGLOBIN, TOTAL Routine 02/04/2025 2:37 PM EDT Type 2 diabetes mellitus with stage 3a chronic kidney disease, unspecified whether intermediate insulin use (HCC) DIABETES EYE EXAM Routine 02/20/2024 3:45 PM EDT LIPID PANEL, STANDARD Routine 01/27/2024 4:11 PM EDT Type 2 diabetes mellitus with stage 3a chronic kidney disease, unspecified whether intermediate insulin use (CMS/HCC) HEPATITIS C AB W/REFL TO HCV RNA, QN, PCR Routine 02/05/2023 12:40 PM EDT Type 2 diabetes mellitus with stage 3a chronic kidney disease, unspecified whether intermediate insulin use (CMS/HCC) from Last 3 Months or Most Recently Relevant to Health Maintenance Results * (ABNORMAL) Basic Metabolic Panel (02/11/2025 3:52 PM EDT) Sodium 140 135 - 145 mmol/L [facility] Potassium 4.5 3.3 - 5.1 mmol/L [facility] Chloride 106 96 - 108 mmol/L [facility] Carbon Dioxide 26 22 - 29 mmol/L [facility] Anion Gap 13 12 - 20 [facility] Urea Nitrogen (BUN) 13 9 - 16 mg/dL [facility] Creatinine, Serum 1.48(H) 0.5 - 1.4 mg/dL [facility] Estimated Glomerular Filt Rate 46 [facility] Comment:Chronic Kidney Disea se: Estimated GFR < 60 mL/min/1.22r6Bpcyct Kidney Disease: Estimated GFR < 15 mL/min/1.73m2 Glucose 96 60 - 115 mg/dL [facility] Calcium 9.4 8.4 - 10.2 mg/dL [facility] Blood Venous blood specimen / Unknown 02/11/2025 3:52 PM EDT 02/11/2025 5:32 PM EDT Lexy Kendall MD LAB BLOOD ORDERABLES Final Result [facility] [address] [place] [phone] * POCT Glucose (02/11/2025 3:30 PM EDT) Only the most recent of2 resultswithin the time period is included. Glucose Blood, POC 114 60 - 200 mg/dL [employer] Media Lot # [id number] Lot# Expiration Date Comment:random Blood Capillary blood specimen / Unknown 02/11/2025 3:30 PM EDT us Lexy Kendall MD POINT OF CARE TEST ENTER/ED IT ORDERABLES Final Result * (ABNORMAL) POCT Hgb A1c (02/04/2025 2:37 PM EDT) Hemoglobin A1C 6.4(A) 4.0 - 5.7 % QC Media Lot # [id number] Lot# Expiration Date 992, Blood 02/04/2025 2:37 PM EDT Lexy Kendall MD POINT OF CARE TEST ENTER/ED IT ORDERABLES Final Result * Hm Diabetes Eye Exam (02/20/2024 3:45 PM EDT) us Historical Provider HEALTH MAINTENANCE Final Result * (ABNORMAL) Lipid Panel, Standard (01/27/2024 4:11 PM EDT) Triglycerides 313(H) <150 mg/dL [facility] Comment:Desirable Triglyceri de: less than 150 mg/dLBorderline High Triglyceride 150-199 mg/dLHigh Triglyceride: 200-499 mg/dLVery High Triglyceride: greater than or equal to 5OO mg/dL Cholesterol 200(H) <200 mg/dL [facility] Comment:Desirable Cholestero l: less than 200 mg/dLBorderline High Cholesterol: 200-239 mg/dLHigh Cholesterol: greater than 239 mg/dL LDL Cholesterol Calculated 100(H) <100 mg/dL [facility] Comment:Desirable LDL: less than 100 mg/dLNear Optimal/Above Optimal LDL: 110- 129 mg/dLBorderline High LDL: 130-159 mg/dLHigh LDL: 160-189 mg/dLVery High LDL: greater than or equal to 190 mg/dL HDL Cholesterol 38(L) >40 mg/dL [facility] Comment:Desirable HDL: great er than 40 mg/dL Note: This HDL assay may give artificially low results in patients with liver disease. Blood Venous blood specimen / Unknown 01/27/2024 4:11 PM EDT 01/27/2024 5:38 PM EDT Rojas Miller MD LAB BLOOD ORDERABL ES Final Result [facility] [address] [place] [address] [phone] * Hepatitis C Antibody with Reflex to HCV, RNA, Quantitative, Real-Time PCR (02/05/2023 12:40 PM EDT) Hepatitis C Antibody Nonreactive Nonreactive [facility] Comment:Antibodies to HCV no t detected; does not exclude early acuteHCV infection. Blood Venous blood specimen / Unknown 02/05/2023 12:40 PM EDT 02/05/2023 2:06 PM EDT Rojas Miller MD LAB BLOOD ORDERABL ES Final Result [facility] [address] [place] [address] [phone] from Last 3 Months or Most Recently Relevant to Health Maintenance Insurance [facility] [employer]ED [employer]URSING OPTIONS (HMO D-SNP) [employer] [id number] Care Teams Hospitality Coordinator Relationship Specialty Start Date End Date Lexy Kendall MD [address] [place] [id number] PCP - General Internal Medicine 02/12/24
== END 2025-04-08 15:55 | disposition home or self-care (01) ==
PROVIDERS: PCP Internal Medicine; Visit Provider Internal Medicine Nephrology
DX: N28.1 Cyst of kidney, acquired (principal); N18.31 Chronic kidney disease, stage 3a; I10 Essential (primary) hypertension
CPT/HCPCS: 99214

== ENCOUNTER → 2025-04-08 15:20 | Outpatient (BNVA) | payer OTHER, SELFPAY | PROVIDERS: PCP Internal Medicine; Visit Provider Internal Medicine Nephrology | DX: I12.9 Hypertensive chronic kidney disease with stage 1 through stage 4 chronic kidney disease, or unspecified chronic kidney disease (principal); N18.31 Chronic kidney disease, stage 3a; N28.1 Cyst of kidney, acquired; Z87.891 Personal history of nicotine dependence | CPT/HCPCS: 99212 ==

== ENCOUNTER 2025-04-21 10:13 | Outpatient (AMB) | payer OTHER, SELFPAY ==
--- NOTE | 2025-04-21 10:19 | A.OFFVIS_ITS ---
Intake Visit Reasons: Kidney Cyst/Suspicion Lesion(set) Intake Note: Reason for Visit: New Patient Complex Cyst/ Suspicious Lesion/ Excision Vs Ablation Urology Meds: Allopurinol Blood Thinners: Aspirin Labs: BUN- 13 Creatinine: 1.48 ( 02/11/2025) Imaging: Abdomen MRI 11/24/2024 Last PVR: None Family History: Prostate Cancer? no Bladder Cancer? no Kidney Cancer?no Diamond Cleaner Required: No Accompanied by: Self / Same As Patient Allergies No Known Allergies Allergy (Verified 04/21/25 10:29) HPI Comments Details: Tommy is a pleasant male. He is a patient of Dr. Salter. He is seen for the following urologic conditions - complex renal cyst Has serial imaging showing minimal progression Majority of cysts Bosniak 2 Repeat abdominal MRI at [facility] in September of next year for surveillance Translation provided by daughter Complex renal cyst Incidental detection Had been followed through Nephrology Multiple complex cysts noted bilateral Ranging in size to 4 cm, some calcification on wall, satisfy Bosniak 2 criteria Recent contrast MRI shows majority of cysts static and satisfy Bosniak 2 criteria 1 cyst on the right does have 14 mm enhancing area that is suspicious At this stage given age and other comorbidities suggest follow-up in 12 month Imaging - abdominal MRI 06/23, 11[facility] Medical History Screening for colon cancer Prostate cancer screening Chronic idiopathic constipation History of tremor Vitamin D deficiency Diabetes mellitus CISCO on CPAP Old myocardial infarction Hypothyroidism Hyperlipidemia with target LDL less than 70 Essential hypertension Depression CKD (chronic kidney disease) CAD (coronary artery disease) Renal cyst Surgical History H/O heart surgery Presence of stent in coronary artery Family History Mother Hypertension Diabetes Heart disease Social History Alcohol intake: never Patient Tobacco Use Status: Former Tobacco user Review of Systems Const Denies chills and Denies fever(s) Card Reports no additional complaints and Denies syncope Resp Denies cough GI Denies abdominal pain and Denies heartburn Reports as per HPI and Denies change in libido Neuro Denies syncope Psych Denies change in libido Endo Denies change in libido Physical Exam Const General: cooperative, healthy appearing, comfortable and no acute distress Orientation/consciousness: patient oriented x3 HEENT Face and sinus: Yes normal facial exam Mouth: moist mucous membranes Neck Neck: Yes normal visual inspection, Yes full ROM and Yes trachea midline Chest Chest palpation & inspection: normal inspection of the chest Resp Effort & Inspection: normal respiratory effort, able to speak in complete sentences and no respiratory distress GI Inspection: Yes normal to inspection Back/Spine/Pelvis Cervical Spine: normal cervical lordosis Thoracic/Lumbar Spine: thoracic and lumbar spine normal to inspection Skin General skin exam: no rashes or lesions noted Neuro General: patient oriented x3, gait normal, tone normal and moves all extremities Extrem General: Yes normal to inspection and Yes capillary refill normal Assessment & Plan Assessment & Plan (1) Complex renal cyst: Code(s): N28.1 - Cyst of kidney, acquired Category: Medical Plan Complex renal cyst Interval staging Orders: Orders CT abdomen pelvis wo/w IV con 6 Months N28.1 - Cyst of kidney, acquired Patient Instructions: This note is constructed using voice recognition software. While every effort has been made to ensure accuracy injection molding process technician errors may have been included. Imaging studies, laboratory and physical exam results were discussed and reviewed in detail. No major barriers to patient understanding were identified. An opportunity to ask questions regarding the treatment plan was provided. All questions were answered. The patient expressed understanding and agreement with the above treatment plan. The patient is aware they should contact our office by phone for worsening of their current condition or the appearance of new urologic symptoms. Compliance is encouraged with any medications and followup testing that is ordered. It is a privilege to participate in the urologic care of your patient. If you have any questions or concerns regarding treatment for the above conditions, or other urologic issues, please do not hesitate to contact me. The office telephone contact is [phone]. Sincerely, Dr Mt Pichardo MD, [facility] - Urology Compassionate Specialist Care for the Genitourinary System Coding Level of Care Code New Pt Level 4 (56151) Diagnoses Complex renal cyst N28.1
--- OUTSIDE RECORDS SUMMARY | 2025-04-21 10:21 | XMS_ITS | Encounter Summary ---
Author Organization [employer] Address [address] [facility] 7t [place] [address] Care Team Providers Care Supervisor Accounts Receivable Name Role Phone Rojas Cox MD Primary Care Prov ider Lexy Kendall MD Primary Care Provider [phone] Encounter Details Date Type Department Care Team ([facility] st Contact Info) Description 12/04/2022 Orders Only [facility] CHC MED & PEDS [address] [place] [address] Rupa Velasco LPN Social History Tobacco Use [...] documented as of this encounter Care Teams Supervisor Accounts Receivable Relationship Specialty Start Date End Date Rojas Cox MD [address] [place] [address] PCP - General Internal Medicine 03/09/19 02/11/24 Lexy Kendall MD [address] [place] [id number] PCP - General Internal Medicine 02/12/24 [facility] 02/09/25 03/09/25 documented as of this encounter
--- OUTSIDE RECORDS SUMMARY | 2025-04-21 10:21 | XMS_ITS | Clinical Summary ---
Author Organization [employer] Address [address] [facility] 7t [place] [address] Care Team Providers Care Packing And Final Assembly Supervisor Name Role Phone Lexy Kendall MD Primary Care Provider [phone] Allergies No known active allergies Medications * [...] stage 3a chronic kidney disease, unspecified whether detention insulin use (HCC) Chew 4 tablets (16 [...] Parkinson's disease without dyskinesia, with fluctuating manifestations ([facility]/HCC) 11/04/2023 Chronic idiopathic constipation 04/25/2023 Assessment & [...] kidney disease) stage 3, GFR 30-59 ml/min ([facility]) 09/04/2013 Old myocardial infarction 09/04/2013 Overview (06/04/2022): [...] statin therapy, patient is high risk for stroke/DC. Will leave order to be repeated in [...] will be refer for OP services in [place] per his request. Patient with lack of [...] Type Department Care Team Description 03/24/2025 Refill [facility] [address] [place] [address] Lexy Kendall MD 02/24/[address] [address] Lexy Kendall MD 02/19/2025 Refill [facility] [address] [place] [address] Irasema Meek MD 02/12/2025 Results Follow-Up [facility] [address] [place] [address] Vera Grant RN POCT Glucose, Basic Metabolic Panel 02/11/2025 2:45 PM EDT Office Visit [facility] [address] [place] [address] Lexy Kendall MD Confusion state (Primary Dx); Urinary tract infection without hematuria, site unspecified; DARRIN (acute kidney injury) 02/11/2025 Travel 02/10/[address] [address] Lexy Kendall MD 02/10/2025 Telephone [facility] [address] [place] [address] Lexy Kendall MD Chart Prep 02/09/[address] [address] Lexy Kendall MD Call Back Request 02/08/[address] [address] Lexy Kendall MD Verbal Order 02/08/2025 Telephone [facility] [address] [place] [address] Lexy Kendall MD homecare orders 02/04/2025 10:30 AM EDT Office Visit [facility] [address] [place] [address] Lexy Kendall MD Confusion state (Primary Dx); Type 2 diabetes mellitus with stage 3a chronic kidney disease, unspecified whether detention insulin use (HCC); Urge incontinence of urine 02/04/2025 Telephone [facility] [address] [place] [address] Lexy Kendall MD Prior Authorization 02/04/2025 Travel from Last 3 Months Immunizations Immunization Administration [...] unspecified DARRIN (acute kidney injury) POCT GLUCOSE (CPT-76552) Routine 02/11/2025 3:30 PM EDT Urinary tract infection without hematuria, site unspecified DARRIN (acute kidney injury) POCT GLUCOSE (CPT-65080) Routine 02/04/2025 2:38 PM EDT Type 2 diabetes mellitus with stage 3a chronic kidney disease, unspecified whether detention insulin use (HCC) POCT GLYCATED HEMOGLOBIN, TOTAL Routine 02/04/2025 2:37 PM EDT Type 2 diabetes mellitus with stage 3a chronic kidney disease, unspecified whether detention insulin use (HCC) DIABETES EYE EXAM Routine 02/20/2024 3:45 PM EDT LIPID PANEL, STANDARD Routine 01/27/2024 4:11 PM EDT Type 2 diabetes mellitus with stage 3a chronic kidney disease, unspecified whether long term care pharmacist insulin use (CMS/HCC) HEPATITIS C AB W/REFL TO HCV RNA, QN, PCR Routine 02/05/2023 12:40 PM EDT Type 2 diabetes mellitus with stage 3a chronic kidney disease, unspecified whether long term care pharmacist insulin use (CMS/HCC) from Last 3 Months or Most Recently Relevant to Health Maintenance Results * (ABNORMAL) Basic Metabolic Panel (02/11/2025 3:52 PM EDT) Sodium 140 135 - 145 mmol/L [facility] Potassium 4.5 3.3 - 5.1 mmol/L [facility] Chloride 106 96 - 108 mmol/L [facility] Carbon Dioxide 26 22 - 29 mmol/L [facility] Anion Gap 13 12 - 20 [facility] Urea Nitrogen (BUN) 13 9 - 16 mg/dL [facility] Creatinine, Serum 1.48(H) 0.5 - 1.4 mg/dL [facility] Estimated Glomerular Filt Rate 46 [facility] Comment:Chronic Kidney Disea se: Estimated GFR < 60 mL/min/1.92m9Ortetd Kidney Disease: Estimated GFR < 15 mL/min/1.73m2 Glucose 96 60 - 115 mg/dL [facility] Calcium 9.4 8.4 - 10.2 mg/dL [facility] Blood Venous blood specimen / Unknown 02/11/2025 3:52 PM EDT 02/11/2025 5:32 PM EDT Lexy Kendall MD LAB BLOOD ORDERABLES Final Result [facility] [address] [place] [phone] * POCT Glucose (02/11/2025 3:30 PM [...] 4:11 PM EDT) Triglycerides 313(H) <150 mg/dL [facility] Comment:Desirable Triglyceri de: less than 150 mg/dLBorderline High Triglyceride 150-199 mg/dLHigh Triglyceride: 200-499 mg/dLVery High Triglyceride: greater than or equal to 5OO mg/dL Cholesterol 200(H) <200 mg/dL [facility] Comment:Desirable Cholestero l: less than 200 mg/dLBorderline High Cholesterol: 200-239 mg/dLHigh Cholesterol: greater than 239 mg/dL LDL Cholesterol Calculated 100(H) <100 mg/dL [facility] Comment:Desirable LDL: less than 100 mg/dLNear Optimal/Above Optimal LDL: 110- 129 mg/dLBorderline High LDL: 130-159 mg/dLHigh LDL: 160-189 mg/dLVery High LDL: greater than or equal to 190 mg/dL HDL Cholesterol 38(L) >40 mg/dL [facility] Comment:Desirable HDL: great er than 40 mg/dL Note: This HDL assay may give artificially low results in patients with liver disease. Blood Venous blood specimen / Unknown 01/27/2024 4:11 PM EDT 01/27/2024 5:38 PM EDT Rojas Miller MD LAB BLOOD ORDERABL ES Final Result [facility] [address] [place] [phone] * Hepatitis C Antibody with Reflex to HCV, RNA, Quantitative, Real-Time PCR (02/05/2023 12:40 PM EDT) Hepatitis C Antibody Nonreactive Nonreactive [facility] Comment:Antibodies to HCV no t detected; does not exclude early acuteHCV infection. Blood Venous blood specimen / Unknown 02/05/2023 12:40 PM EDT 02/05/2023 2:06 PM EDT Rojas Miller MD LAB BLOOD ORDERABL ES Final Result [facility] [address] [place] [address] [phone] from Last 3 Months or Most Recently Relevant to Health Maintenance Insurance [facility] USP OPTIONS (HMO D-SNP) [place] [employer] [id number] Care Teams Packing And Final Assembly Supervisor Relationship Specialty Start Date End Date Lexy Kendall MD [address] [place] [address] PCP - General Internal Medicine 02/12/24
--- OUTSIDE RECORDS SUMMARY | 2025-04-21 10:21 | XMS_ITS | Clinical Summary ---
Author Organization [facility] Address [address] [facility] [address] [place] [address] Care Team Providers Care Hospice Nurse Name Role Phone Lexy Kendall MD Primary Care Provider [phone] Lexy Kendall MD Unavailable [phone] Social History Tobacco Use Types Packs/Day Years [...] age to complete this topic HPV Vaccines (No Doses Required) Completed Hepatitis A Vaccines Aged Out No long [...] MEDICARE PART A AND B Care Teams Hospice Nurse Relationship Specialty Start Date End Date Lexy Kendall MD [address] [place] [address] PCP - General Color Buffer 04/08/24 Lexy Kendall MD [address] [place] [address] Color Buffer 04/08/24
--- OUTSIDE RECORDS SUMMARY | 2025-04-21 10:21 | XMS_ITS | Encounter Summary ---
Author Organization [employer] Address [address] [facility] 7t [place] [address] Care Team Providers Care Fly Winder Name Role Phone Rojas Cox MD Primary Care Prov ider Lexy Kendall MD Primary Care Provider [phone] Reason for Visit * Reason Comments Med Refill Encounter Details Date Type Department Care Team ([facility] st Contact Info) Description 10/13/2023 Refill [facility] [address] [place], [place] [phone] Irasema Meek MD [address] [place] [address] Social History Tobacco Use Types Packs/Day Years [...] documented as of this encounter Care Teams Fly Winder Relationship Specialty Start Date End Date Rojas Cox MD [address] [place] [address] PCP - General Internal Medicine 03/09/19 02/11/24 Lexy Kendall MD [address] [place] [address] PCP - General Internal Medicine [facility] 03/09/25 documented as of this encounter
--- OUTSIDE RECORDS SUMMARY | 2025-04-21 10:21 | XMS_ITS | Encounter Summary ---
Author Organization [employer] Address [address] [facility] 7t [place] [address] Care Team Providers Care Pricing Analyst Name Role Phone Rojas Cox MD Primary Care Prov ider Lexy Kendall MD Primary Care Provider [phone] Encounter Details Date Type Department Care Team ([facility] st Contact Info) Description 07/27/2022 Orders Only [facility] [address] [place] [address] Jordyn Soni LPN Social History Tobacco Use [...] on filedocumented in this encounter Care Teams Pricing Analyst Relationship Specialty Start Date End Date Rojas Cox MD [address] [place] [address] PCP - General Internal Medicine 03/09/19 02/11/24 Lexy Kendall MD [address] [place] [address] PCP - General Internal Medicine [facility] 03/09/25 documented as of this encounter
--- OUTSIDE RECORDS SUMMARY | 2025-04-21 10:21 | XMS_ITS | Encounter Summary ---
Author Organization [employer] Address [address] [facility] 7t [place] [address] Care Team Providers Care Striper Name Role Phone Lexy Kendall MD Primary Care Provider [phone] Encounter Details Date Type Department Care Team ([facility] st Contact Info) Description 03/30/2024 Orders Only [facility] [address] [place] [address] Provider, MD Katie Social History Tobacco Use [...] documented as of this encounter Care Teams Striper Relationship Specialty Start Date End Date Lexy Kendall MD [address] [place] [address] PCP - General Internal Medicine 02/12/24 [facility] 02/09/25 03/09/25 documented as of this encounter
--- OUTSIDE RECORDS SUMMARY | 2025-04-21 10:21 | XMS_ITS | Encounter Summary ---
Author Organization [employer] Address [address] [facility] 7t [place] [address] Care Team Providers Care Ground Equipment Mechanic Name Role Phone Rojas Cox MD Primary Care Prov ider Lexy Kendall MD Primary Care Provider [phone] Reason for Visit * Reason Onset Date Comments Nurse Triage 10/30/2023 Encounter Details Date Type Department Care Team ([facility] st Contact Info) Description 10/30/2023 Telephone C [facility] [address] [place], [place] [phone] Rojas Cox MD [address] [place] [address] Nurse Triage Social History Tobacco Use Types [...] PM EDT Noted. Pt currently admitted at [facility]. * Telephone Encounter - Irma Amaral RN [...] agrees to call EMS for transport to [facility] ER for immediate evaluation. Reviewed home care [...] this outcome Please contact anisa (daughter) at [phone] documented in this encounter Plan of Treatment Not on file documented as of this encounter Visit Diagnoses Not on filedocumented in this encounter Additional Health Concerns Assessment Noted Time PHQ-9 Depression Total Score: 18 023 12:45 PM EDT documented as of this encounter Care Teams Ground Equipment Mechanic Relationship Specialty Start Date End Date Rojas Cox MD [address] [place] [address] PCP - General Internal Medicine 03/09/19 02/11/24 Lexy Kendall MD [address] [place] [address] PCP - General Internal Medicine 02[facility] 03/09/25 documented as of this encounter
--- OUTSIDE RECORDS SUMMARY | 2025-04-21 10:21 | XMS_ITS | Clinical Summary ---
Author Organization [employer] Address [address] [place] [address] Care Team Providers Care Pull Through Hooker Name Role Phone Meenu Irving MD Primary Care Provider Surgical History Surgery Date Site/Laterality Comments OTHER SURGICAL HISTORY PROCEDURE: STENT, CORONARY, S660 COLONOSCOPY 12/26/12 PROCEDURE: HISTORICAL COLONOSCOPY; COMMENT: tics and inflammatory polyp. Repeat in ten yrs. CORONARY ARTERY BYPASS GRAFT 05/2015 PROCEDURE: HISTORICAL CABG Medical History Medical History Date Comments DM (diabetes mellitus) ([facility] V24, [facility] V28) 09/01/2012 DX:DM (diabetes mellitus) ( CC) Non-ST elevation CA (NSTEMI) ([facility] V24, [facility] V28) 09/01/2012 DX:Non-ST elevation CA (NSTE CA) ([facility]) Presence of stent in coronary artery 09/01/2012 [...] age to complete this topic Care Teams Pull Through Hooker Relationship Specialty Start Date End Date Meenu Irving MD PCP - General Internal Medicine 02/17/19
--- OUTSIDE RECORDS SUMMARY | 2025-04-21 10:21 | XMS_ITS | Encounter Summary ---
Author Organization [employer] Address [address] [facility] 7 [place] [address] Care Team Providers Care Analytical Lead Name Role Phone Lexy Kendall MD Primary Care Provider [phone] Reason for Visit * Reason Onset Date Comments Verbal Order 02/08/2025 Encounter Details Date Type Department Care Team ([facility] st Contact Info) Description 02/08/2025 Telephone [facility] [address] [place] [address] Lexy Kendall MD [address] [place] [phone] Verbal Order Social History Tobacco Use Types [...] would sign home care orders for group home.Client Engagement Manager advised that verbal order where given to [facility]. Julia request to forward the message anyway's. Contact Julia at [phone] documented in this encounter Plan of Treatment Not on file documented as of this encounter Visit Diagnoses Not on filedocumented in this encounter Additional Health Concerns Assessment Noted Time PHQ-9 Depression Total Score: 6 07/01/19 25 1:51 PM EST documented as of this encounter Care Teams Analytical Lead Relationship Specialty Start Date End Date Lexy Kendall MD [address] [place] [address] PCP - General Internal Medicine 02/12/24 [facility] 02/09/25 03/09/25 documented as of this encounter
--- OUTSIDE RECORDS SUMMARY | 2025-04-21 10:21 | XMS_ITS | Encounter Summary ---
Author Organization [employer] Address [address] [facility] 7t [place] [address] Care Team Providers Care Resident Care Spec Name Role Phone Rojas Cox MD Primary Care Prov ider Lexy Kendall MD Primary Care Provider [phone] Encounter Details Date Type Department Care Team ([facility] st Contact Info) Description 09/18/2022 Orders Only [facility] [address] [place] [address] Jaye Sommer LPN Social History Tobacco Use [...] documented as of this encounter Care Teams Resident Care Spec Relationship Specialty Start Date End Date Rojas Cox MD [address] [place] [address] PCP - General Internal Medicine 03/09/19 02/11/24 Lexy Kendall MD [address] [place] [address] PCP - General Internal Medicine 02/12/24 [facility] 02/09/25 03/09/25 documented as of this encounter
== END 2025-04-21 10:49 | disposition home or self-care (01) ==
LOC: HO.HUSH 10:13
PROVIDERS: PCP Internal Medicine; Visit Provider Urology
DX: N28.1 Cyst of kidney, acquired (principal)
CPT/HCPCS: 99204

== ENCOUNTER → 2025-04-21 10:13 | Outpatient (BNVA) | payer OTHER, SELFPAY | PROVIDERS: PCP Internal Medicine; Visit Provider Urology | DX: N28.1 Cyst of kidney, acquired (principal) | CPT/HCPCS: 99202 ==